=== PATIENT | male | born 1950 | race Caucasian/White ===

== ENCOUNTER 2023-01-17 07:07 | Inpatient (IN) | payer OTHER, SELFPAY ==
--- NOTE | ~2023-01-17 | US_ITS ---
EXAMINATION: US ABDOMEN COMPLETE CLINICAL INFORMATION: Upper abdominal pain. COMPARISON: None available. TECHNIQUE: Real-time imaging of the abdominal viscera. FINDINGS: PANCREAS: Not well visualized due to bowel gas ABDOMINAL AORTA: The proximal, mid, and distal segments are normal in caliber. INFERIOR VENA CAVA: Visualized portions are normal. LIVER: Normal. The liver is normal in size. The liver contour is normal. Parenchymal echogenicity is normal. No focal hepatic lesion. There is no intrahepatic biliary duct dilatation seen. GALLBLADDER: Normal. The gallbladder is physiologically distended without evidence of stones, sludge, polyps, wall thickening or pericholecystic fluid. COMMON BILE DUCT: Normal in caliber measuring 0.4 cm in diameter. RIGHT KIDNEY: Normal. No hydronephrosis. No renal calculi or focal parenchymal lesions. The kidney measures 12 cm in maximum dimension. LEFT KIDNEY: There is a 1 x 0.7 x 0.5 cm cyst in the midpole. No hydronephrosis. No renal calculi. The kidney measures 12 cm in maximum dimension. SPLEEN: Upper normal in size. The spleen measures 12.7 cm in maximum dimension. FREE FLUID: None. US/US abdomen complete IMPRESSION: Limited visualization of the pancreas. Small left renal cyst.
--- NOTE | ~2023-01-17 | XR_ITS ---
EXAMINATION: XR CHEST CLINICAL INFORMATION: Epigastric abdominal pain COMPARISON: None available. TECHNIQUE: 2 views of the chest were obtained. FINDINGS: The lungs are somewhat expanded and clear acute pneumonic process. There is no pleural effusion. There is elevated right hemidiaphragm. The heart size is by underlying enlarged. Pulmonary vascularity is normal. There are median sternotomy sutures and mediastinal salina from previous intervention. No gross bony abnormality seen. XR/XR chest 2V IMPRESSION: 1. Elevated right hemidiaphragm. 2. Mild cardiomegaly. 3. No acute pulmonary process seen.
--- NOTE | ~2023-01-17 | NM_ITS ---
[place] Myocardial perfusion study Indication: Coronary artery disease Technique: Resting perfusion study was performed on 01/18/2023. Patient was administered 30 mCi of sestamibi intravenously at rest. Images were then obtained in supine position. Images were processed with the software and compared side to side in short axis, horizontal long axis and vertical long axis views. Total DLP 53mGy-cm. Findings: Raw acquisition reviewed. Arms by the patient's side. Resting study shows absent tracer uptake in the lateral wall from proximal to mid portions. Reduced tracer uptake in the inferior wall in the basal part. Markedly reduced tracer uptake in the basal inferior septum. Slightly reduced tracer uptake in the distal anterior septum. With CT attenuation correction, the lateral defect still remains similar. Inferior defect seems to improve. Slight improvement in the basal septal defect. No significant change with distal anterior septum. Gating at rest reveals ejection fraction at 44%. Absent basal to mid lateral wall contractility. Absent basal septal contractility. Reduced contractility in the basal inferior wall. The findings are consistent with absent uptake in the basal lateral wall; markedly reduced uptake in the basal septum; mildly reduced uptake in the distal anterior septum. NM/NM rajesh perf SPECT rest or str Impression: 1. Myocardial perfusion imaging study shows absent uptake in the basal lateral wall; markedly reduced uptake in the basal septum; mildly reduced uptake in the distal anterior septum. Due to lack of stress testing, cannot assess further. 2. Gated LVEF is 44% during rest. Patient transfer to [facility] before stress testing completed.
[2023-01-17 07:32] VITALS: BP 180/86; PULSE 69; RESP 18; TEMP 36.6; O2SAT 99; BMI 28.9
--- NOTE | 2023-01-17 07:37 | ECG_ITS ---
Test Reason : chest pain Blood Pressure : / mmHG Vent. Rate : 067 BPM Atrial Rate : 067 BPM P-R Int : 158 ms QRS Dur : 096 ms QT Int : 454 ms P-R-T Axes : 018 -49 162 degrees QTc Int : 479 ms Normal sinus rhythm Left anterior fascicular block Left ventricular hypertrophy with repolarization abnormality ( R in aVL , Grants product ) Abnormal ECG No previous ECGs available Referred By: Josef Noland Electronically Signed By:JASON HOYOS MD
--- NOTE | 2023-01-17 07:39 | ED_ITS ---
HPI - Abdominal Pain General Chief Complaint: Abdominal Pain Stated Complaint: Abdpain Time Seen by Provider: 01/17/23 07:22 Source: patient Mode of arrival: ambulatory Limitations: no limitations History of Present Illness HPI narrative: 72-year-old male with diabetes, hypertension, coronary artery disease status post multivessel bypass presents with upper abdominal pain. The upper abdominal pain has been intermittent for approximately 6-7 months. The pain is moderate to severe. Today it is rated at an 8/10. The pain is described as crampy in nature. It is worse with having acid the food or drinks. Sometimes the pain radiates to the back. There is no diarrhea or constipation. No dark black stool. He does have nausea vomiting particularly over the last 2 days reported as dry heaves without blood or bile. He has had no fevers or chills. He is passing flatus without significant issues. Patient has been to [facility] at least twice where he has had ultrasounds and CT scans. At some po int he has been diagnosed with pancreatitis, diverticulitis. He is due to have an upper endoscopy on January 25 and a colonoscopy in February. Patient is on omeprazole 40 mg daily. Related Data Home Medications Medication Instructions Recorded Confirmed allopurinol 300 mg tablet 150 mg PO DAILY 02/10/22 02/10/22 aspirin 81 mg tablet,delayed 81 mg PO DAILY 02/10/22 02/10/22 release atorvastatin 80 mg tablet 80 mg PO DAILY 02/10/22 02/10/22 cholecalciferol (vitamin D3) 50 50 mcg PO DAILY 02/10/22 02/10/22 mcg (2,000 unit) capsule clopidogrel 75 mg tablet (Plavix) 75 mg PO DAILY 02/10/22 02/10/22 furosemide 40 mg tablet (Lasix) 40 mg PO DAILY 02/10/22 02/10/22 insulin degludec 100 unit/mL (3 10 unit subcut DAILY 02/10/22 02/10/22 mL) subcutaneous pen (Tresiba FlexTouch U-100 insulin) metoprolol tartrate 50 mg tablet 50 mg PO BID 02/10/22 02/10/22 Previous Rx's Medication Instructions Recorded insulin degludec 100 unit/mL (3 30 unit (0.3 mL) subcut DAILY 30 02/10/22 mL) subcutaneous pen (Tresiba days #9 mL FlexTouch U-100 insulin) isosorbide mononitrate 30 mg 30 mg PO DAILY 90 days #90 tabs 02/10/22 tablet,extended release 24 hr losartan 50 mg tablet 50 mg PO BID 90 days #180 tabs 02/10/22 diazepam 5 mg tablet 5 mg PO TID PRN anxiety 30 days 07/05/22 #90 tabs fluticasone propionate 50 1 spray intranasal Q12H 30 days 12/03/22 mcg/actuation nasal #16 grams spray,suspension (Flonase Allergy Relief) Allergies Allergy/AdvReac Type Severity Reaction Status Date / Time Seasonal Allergies AdvReac Intermediate Itchy Eyes Verified 02/10/22 10:09 [facility] Past Medical History Surgical History History of tonsillectomy Social History Social History Housing: House Alcohol intake: never Patient Tobacco Use Status: Former Tobacco user Cigarette Packs Per Day: 1 Years Smoked: 8 Smoked in Last 30 Days: No e-Cigarette/Vaping Use: Never Used Use of substances other than those prescribed or required for medical reasons: No Advance Directives: Yes Advance Directives Information Provided: Yes Advance Directives on File: No service: No Current occupational status: retired Cognitive needs: No Hearing needs: No Vision needs: No Physical Exam ED Vital Signs: Vital Signs - 24 hr 01/17/23 07:32 Temperature 98 F Pulse Rate 69 Respiratory Rate 18 Blood Pressure 180/86 H Pulse Oximetry 99 Oxygen Delivery Method Room Air BMI result Body Mass Index 28.9 GEN: Well developed, no acute distress, alert, oriented HEENT: Normocephalic, atraumatic, normal external ears, nose appears normal, no oropharyngeal edema or exudates Eyes: Normal to appearance Neck: Supple, no lymphadenopathy Respiratory: Talks in complete sentences, no respiratory distress, clear to auscultation bilaterally Cardiovascular: Regular rate and rhythm, no murmurs rubs or gallops Abdomen: Soft, nontender, nondistended, no guarding, no rebound, negative Escalona sign, negative McBurney's point tenderness, no post tile masses appreciated Back: No CVA tenderness Extremities: No clubbing cyanosis or edema Neurologic: No focal neurologic deficits, cranial nerves 2-12 intact, strength is 5/5 bilaterally Skin: No rash Course Course Course Narrative: A 72-year-old male with multiple comorbidities presents with upper abdominal pain. Patient has had workups in the past including imaging studies, laboratory analysis. Diagnoses in the past have included diverticulitis and pancreatitis. Workup today will include ultrasound to evaluate the aorta as well as the biliary system. Will also rule out cardiac issues given the epigastric nature of it pain. Does report some exertional component. He reports a chronic history of elevated troponin, end-stage renal disease with fistula in his left upper extremity will also provide patient with analgesia during the course of workup. Reevaluation(s) Reevaluation #1: patient with significantly elevated toponin, reports having a chronic elevated toponin state. Obtaining records from [facility] to see previous levels. Certainly elevated toroponin wiht epigastric pain is possible for inferior wall mi. No ST elevations or depressions. holding off on aspirin for aortic imaging. Previous CT from [facility] did not demonstrate AAA or dissection. Time: 09:16 Reevaluation #2: Discussed results with the patient. Also discussed previously his cardiac enzyme elevations in that they are significantly elevated from [facility]. I contacted Dr. Fernando, Cardiology, recommending IV heparin drip. Orde red aspirin as well. Time: 11:24 Medical Decision Making Medical Decision Making MDM Narrative: 72-year-old male with multiple comorbidities presents with epigastric abdominal pain. The pain appears to be worse with acidic foods. This OC with nausea vomiting has been nonbilious nonbloody in nature. His examination was benign. Differential diagnosis is broad including pancreatitis, diverticulitis, colitis, IBS, IBD, biliary, renal colic, aortic/vascular. Workup will include CBC, CMP, lipase, troponin, EKG, chest x-ray, ultrasound. In the meantime I will also treat the patient for symptoms. Differential Diagnosis Differential Diagnoses: The differential diagnosis associated with the presentation includes (See above) elevated troponin epigastric pain, Lab Data MDM Lab Attestation statement: I reviewed the patient's lab results. 01/17/23 07:55 01/17/23 07:55 Labs: Lab Results 01/17/23 01/17/23 01/17/23 Range/Units 07:55 07:55 07:55 WBC 7.0 (4.8-10.8) X10*3/uL RBC 5.94 H (4.60-5.80) X10*6/uL Hgb 15.7 (14.0-18.0) g/dl Hct 45.1 (42.0-52.0) % MCV 75.9 L (80.0-98.0) fL MCH 26.4 L (27.0-33.0) pg MCHC 34.8 (31.0-36.0) g/dl RDW 12.7 (11.0-16.0) % Plt Count 255 (160-400) X10*3/uL MPV 9.2 L (9.4-12.4) fL Immature Gran % (Auto) 0.3 (0.0-0.4) % Neut % (Auto) 58.3 (45-73) % Lymph % (Auto) 25.2 (20-40) % [place] % (Auto) 14.9 H (2-11) % Eos % (Auto) 0.9 (0-4) % Baso % (Auto) 0.4 (0-2) % Lymph # (Auto) 1.8 (1.2-4.9) X10*3/uL [place] # (Auto) 1.0 (0.1-1.2) X10*3/uL Eos # (Auto) 0.1 (0.0-0.4) X10*3/uL Baso # (Auto) 0.0 (0.0-0.2) X10*3/uL Abs Immat Gran (auto) 0.02 (0.00-0.03) X10*3/uL Absolute Neuts (auto) 4.1 (2.0-8.3) x10*3/uL Absolute Nucleated RBC 0.000 (0.0-0.012) X10*3/uL Nucleated RBC % (auto) 0.0 (0.0-0.2) /100WBC Sodium 133 L (135-145) mmol/L Potassium 3.0 L (3.3-5.1) mmol/L Chloride 94 L (96-108) mmol/L Carbon Dioxide 29 (22-29) mmol/L Anion Gap 13 (12-20) BUN 32 H (9-16) mg/dL Creatinine 2.58 H (0.5-1.4) mg/dL Estim Creat Clear Calc 27.2 Estimated GFR 25 Random Glucose 127 H (60-115) mg/dL Calcium 8.5 (8.4-10.2) mg/dL Total Bilirubin 0.6 (0.0-1.0) mg/dL AST 19 (5-37) U/L ALT 8 (0-40) U/L Alkaline Phosphatase 177 H (39-117) U/L Troponin I High Sens > 3600.0 H* (<3.5-35.0) ng/L Total Protein 5.5 L (6.5-8.0) g/dL Albumin 2.7 L (3.5-5.0) g/dL Lipase 38 (8-78) U/L Independent Interpretation I performed an independent interpretation of an: EKG (NSR 67, nonspecific T-wave changes, no acute ST elevations or depressions QTC 479 milliseconds left anterior fascicular block, evidence of LVH), Plain X-Ray (Chest: No acute cardiopulmonary disease, no subdiaphragmatic air) and Ultrasound (NAD) Radiology Impression Discussion of test interpretation with radiology: I have reviewed the radiologis t's reading. ( US/US abdomen complete IMPRESSION: Limited visualization of the pancreas. Small left renal cyst. Dictated By:Rebecca Dobsonigned By:<Electronically signed by Rebecca Dobson MD in OV>01/17/23 1100) Independent Historian Clinical information obtained from an independent historian. History obtained from or confirmed by: Other (Daughter) External Record Review External record reviewed: Outpatient record (Primary care visit in 2021) and Outside ED record (Imaging report from 12/07/2022. Impression showed suggestions of acute diverticulitis in the sigmoid colon, no evidence of appendicitis, bladder wall thickening possibly due to under distension, prostate a megaly, splenomegaly in bilateral small fat containing inguinal hernias.) Tests considered The following testing was considered but not selected: CT scan abdomen Prescription Management I considered prescription management with: Pain Medication and Antibiotic Chronic Conditions Patient?s care impacted by: Diabetes and Hypertension Medications Administered Discontinued Medications Generic Name Dose Route Start Last Admin Trade Name Freq PRN Reason Stop Dose Admin Al Hydroxide/Mg Hydroxide 30 ml 01/17/23 07:37 01/17/23 08:17 Magnesium Hydrox/Alum Hydrox 30 Ml Oral.Susp PO 01/17/23 07:38 30 ml ONCE ONE Administration Belladonna Alkaloids/Phenobarbital 10 ml 01/17/23 07:37 01/17/23 08:18 Phenobarb/Hyoscy/Atropine/Scop 10 Ml Elixir PO 01/17/23 07:38 10 ml ONCE ONE Administration Sodium Chloride 1,000 mls @ 999 mls/hr 01/17/23 07:45 01/17/23 07:57 Ns IV 01/17/23 08:45 999 mls/hr .Q1H1M FRANCY Administration Lidocaine HCl 15 ml 01/17/23 07:37 01/17/23 08:17 Lidocaine Hcl Viscous 2 % 15 Ml Solution MUCOUS MEM 01/17/23 07:38 15 ml ONCE ONE Administration Morphine Sulfate 4 mg 01/17/23 07:37 01/17/23 08:13 Morphine Sulfate 4 Mg/Ml Cartridge IVPUSH 01/17/23 07:38 4 mg ONCE ONE Administration Protocol Ondansetron HCl 4 mg 01/17/23 07:37 01/17/23 08:13 Ondansetron Hcl 4 Mg/2 Ml Vial IVPUSH 01/17/23 07:38 4 mg ONCE ONE Administration Pantoprazole Sodium 80 mg 01/17/23 07:37 01/17/23 08:22 Pantoprazole Sodium 40 Mg/10 Ml Vial IVPUSH 01/17/23 07:38 80 mg ONCE ONE Administration Discharge Plan Discharge Clinical Impression: Abdominal pain, acute, epigastric, Abnormal weight loss, CKD (chronic kidney disease), Hypokalemia, Elevated troponin Patient Disposition: Admitted As Inpatient
[2023-01-17] MEDS: 0.9 % Sodium Chloride 1,000 ML 999 ML IV (07:57)
[2023-01-17 08:03] LABS: MANUAL DIFF FLAG NO
[2023-01-17 08:04] LABS: Basophils Percent Auto 0.4 % (0-2); Eosinophils Absolute Auto 0.1 X10*3/uL (0.0-0.4); Eosinophils Percent Auto 0.9 % (0-4); Hematocrit 45.1 % (42.0-52.0); Hemoglobin 15.7 g/dl (14.0-18.0); Imm Gran Abs Auto 0.02 X10*3/uL (0.00-0.03); Imm Gran Pct Auto 0.3 % (0.0-0.4); Lymphocytes Absolute Auto 1.8 X10*3/uL (1.2-4.9); Lymphocytes Percent Auto 25.2 % (20-40); Mean Corpuscular HGB Conc 34.8 g/dl (31.0-36.0); Mean Corpuscular Hemoglobin 26.4 pg (27.0-33.0); Mean Corpuscular Volume 75.9 fL (80.0-98.0); Mean Platelet Volume 9.2 fL (9.4-12.4); Monocytes Percent Auto 14.9 % (2-11); Neutrophils Absolute Auto 4.1 x10*3/uL (2.0-8.3); Neutrophils Percent Auto 58.3 % (45-73); Platelet Count 255 X10*3/uL (160-400); Red Blood Count 5.94 X10*6/uL (4.60-5.80); Red Cell Distribution Width 12.7 % (11.0-16.0)
[2023-01-17] MEDS: ondansetron HCL 4 MG/2 ML VIAL IVPUSH (08:13)
[2023-01-17] MEDS: Morphine Sulfate 4 MG/ML CARTRIDGE IVPUSH (08:13)
[2023-01-17] MEDS: Lidocaine HCl Viscous 2 % 15 ML SOLUTION MUCOUS MEM (08:17)
[2023-01-17] MEDS: Magnesium Hydrox/Alum Hydrox 30 ML ORAL.SUSP PO (08:17)
[2023-01-17] MEDS: PHENobarb/Hyoscy/Atropine/Scop 10 ML ELIXIR PO (08:18)
[2023-01-17] MEDS: Pantoprazole Sodium 40 MG/10 ML VIAL 80 MG IVPUSH (08:22)
--- NOTE | 2023-01-17 08:27 | PC.NURSE ---
pt alert/oriented x4. reporting increased central abd pain since Tuesday with dry heaving. abdomen soft and painful with deep palpation. Pt has had abd pain since June. IV started, labs drawn, fluids running and meds given per NOV. Pt has AV fistula on left wrist, pt not on dialysis at this time. thrill palpated.
[2023-01-17 09:09] LABS: Alanine Aminotransferase 8 U/L (0-40); Albumin Level 2.7 g/dL (3.5-5.0); Alkaline Phosphatase 177 U/L (39-117); Anion Gap 13 (12-20); Aspartate Amino Transferase 19 U/L (5-37); Bilirubin Total 0.6 mg/dL (0.0-1.0); Blood Urea Nitrogen 32 mg/dL (9-16); Calcium 8.5 mg/dL (8.4-10.2); Carbon Dioxide 29 mmol/L (22-29); Chloride 94 mmol/L (96-108); Creatinine Clr Calc Pharmacy 27.2; Estimated Glomerular Filt Rate 25; Lipase 38 U/L (8-78); Sodium 133 mmol/L (135-145); Total Protein 5.5 g/dL (6.5-8.0)
[2023-01-17 09:11] LABS: Troponin-I High Sensitivity > 3600.0 ng/L (<3.5-35.0)
[2023-01-17 10:00] VITALS: PULSE 70; RESP 16; O2SAT 96
--- NOTE | 2023-01-17 10:10 | PM.GICN ---
History of Present Illness Data of Consult Service Date: 01/17/23 Primary Care Provider: Miguelangel Beckham MD HPI Reason for consult: abdominal pain, and weight loss 72-year-old male with a hx of?CAD s/p quintuple coronary artery bypass grafting in 2018,? HTN, HLD, insulin-dependent diabetes type 2, and end-stage renal disease not currently on hemodialysis who I am seeing for assessment for abdominal pain and weight loss Patient has been having recurrent bouts of severe epigastric pain 6/10 in severity radiating into the back like an knawing pain worse with food, and associated with nausea and occ non bloody emesis last few days. He also noted 16# weight loss over about 1 months. He has been unable to eat except for clear liquids. Patient denies constipation or diarrhea, but notes that his stool has been softer than normal these past 6 months. No rectal bleding or melena noted. not taking nsaids except for aspirin. He has been to [facility] ED 3 times for the symptoms and had three CT scans of abdomen and pelvis.? One time patient was diagnosed with pancreatitis because elevated lipase, another with diverticulitis.? Ct scans have shown moderate atherosclerosis of aorta. Labs: sodium of 133, potassium 3.0, BUN 32, creatinine 2.58, alk-phos of 177, troponin > 3600, albumin of 2.7. Imaging: CXR: mild cardiomegaly and elevated right hemidiaphragm, but no acute pulmonary process seen. US: small left renal cyst and limited visualization of the pancreas due to bowel gas.Otherwise normal ECG: normal sinus rhythm with suggestion of LVH with repolarization abnormality, but no ST elevations or depressions PAtient has been started on heparin gtt and pantoprazole. Review of Systems Review of Systems: Constitutional : + Weight loss, No Fever, No Chills ENT/Mouth : No sore throat, No Rhinorrhea Eyes: No Swelling, No Redness Cardiovascular : No Chest Pain, No SOB, No Edema Respiratory : No Cough, No Sputum, No Wheezing Gastrointestinal : see HPI Genitourinary : NO Dysuria, No Urinary Frequency, No Hematuria, No Urgency Musculoskeletal : No joint pain, No Myalgias, No Joint Swelling Skin : No Skin Lesions, No rash Neuro : No Weakness, No Numbness, No Dizziness, No Headache Psych : No Anxiety/Panic, No Depression Heme/Lymph: No Bruising, No Lymphadenopathy Endocrine : No Polyuria, No Polydipsia All other systems reviewed and are negative. [facility] Surgical History Surgical History History of tonsillectomy Social History Social History Housing: House Alcohol intake: never Patient Tobacco Use Status: Former Tobacco user Cigarette Packs Per Day: 1 Years Smoked: 8 Smoked in Last 30 Days: No e-Cigarette/Vaping Use: Never Used Use of substances other than those prescribed or required for medical reasons: No Advance Directives: Yes Advance Directives Information Provided: Yes Advance Directives on File: No service: No Current occupational status: retired Cognitive needs: No Hearing needs: No Vision needs: No Meds Allergies Allergy/AdvReac Type Severity Reaction Status Date / Time Seasonal Allergies AdvReac Intermediate Itchy Eyes Verified 02/10/22 10:09 Home Medications Medication Instructions Recorded Confirmed Last Taken Type allopurinol 300 mg tablet 150 mg PO DAILY 02/10/22 01/17/23 Unknown History aspirin 81 mg tablet,delayed 81 mg PO DAILY 02/10/22 01/17/23 Unknown History release atorvastatin 80 mg tablet 80 mg PO DAILY 02/10/22 01/17/23 Unknown History cholecalciferol (vitamin D3) 50 50 mcg PO DAILY 02/10/22 01/17/23 Unknown History mcg (2,000 unit) capsule insulin degludec 100 unit/mL (3 17 unit subcut BID 02/10/22 01/17/23 Unknown History mL) subcutaneous pen (Tresiba FlexTouch U-100 insulin) metoprolol tartrate 50 mg tablet 25 mg PO TID 02/10/22 01/17/23 Unknown History furosemide 40 mg tablet 40 mg PO DAILY 01/17/23 01/17/23 Unknown History latanoprost 0.005 % eye drops 1 drp ophthalmic (eye) BEDTIME 01/17/23 01/17/23 Unknown History losartan 100 mg tablet 100 mg PO DAILY 01/17/23 01/17/23 Unknown History sertraline 25 mg tablet 25 mg PO DAILY 01/17/23 01/17/23 Unknown History timolol maleate 0.5 % eye drops 1 drp ophthalmic (eye) QAM 01/17/23 01/17/23 Unknown History Physical Exam Vital Signs: Vital Signs: Last Vital Signs Temp 98 F 01/17/23 07:32 Pulse 69 01/17/23 07:32 Resp 18 01/17/23 07:32 BP 180/86 H 01/17/23 07:32 Pulse Ox 99 01/17/23 07:32 O2 Del Method Room Air 01/17/23 07:32 BMI result Body Mass Index 28.1 EXAM: GENERAL: The patient is frail, pale appearing VITAL SIGNS:see workflow HEENT: Nonicteric sclerae, PERRLA, EOMI. Oropharynx clear. Moist mucous membranes. Conjunctivae appear well perfused. No thyroid mass. CHEST: Chest wall is nontender. HEART: Regular rate and rhythm without murmurs. LUNGS: Clear to auscultation bilaterally. ABDOMEN: Soft, positive bowel sounds, tender epigastrium, no organomegaly.no flank tenderness SKIN: No rash, no excessive bruising, petechiae, or purpura. erythema ab igne on the abdo wall NEUROLOGIC: Cranial nerves II-XII intact without motor/sensory deficit. Pscyh: nml affect Results Labs 01/17/23 07:55 01/17/23 07:55 Labs: Short CBC 01/17/23 Range/Units 07:55 WBC 7.0 (4.8-10.8) X10*3/uL Hgb 15.7 (14.0-18.0) g/dl Hct 45.1 (42.0-52.0) % Plt Count 255 (160-400) X10*3/uL BMP 01/17/23 07:55 Sodium 133 L Potassium 3.0 L Chloride 94 L Carbon Dioxide 29 BUN 32 H Creatinine 2.58 H Calcium 8.5 Liver Function 01/17/23 Range/Units 07:55 Total Bilirubin 0.6 (0.0-1.0) mg/dL AST 19 (5-37) U/L ALT 8 (0-40) U/L Alkaline Phosphatase 177 H (39-117) U/L Albumin 2.7 L (3.5-5.0) g/dL Assessment and Plan (1) CKD (chronic kidney disease): Status: Acute (2) Spinal stenosis: Status: Acute (3) Chronic renal failure: Status: Acute (4) Diabetes: Status: Acute (5) Coronary artery disease: Status: Acute (6) Hypertension: Status: Acute (7) Hyperlipidemia: Status: Acute (8) Gout: Status: Acute Plan 1/ Abdominal pain with weight loss, ongoing symptoms, has prandial pain, main concerns: PUD, mesenteric ischemia, pancreatic ca, small bowel crohns PLAN: 1/ work up for NSTEMI as doing if neg then Mr pancreas and doppler of meseneteric vessels 2/ if neg then EGD and colonoscopy, can cont with PPI for the meantime Time Spent With Patient Time: Total time managing care of this patient today ____ minutes. Procedures Date of Service Date of Service: 01/17/23
[2023-01-17 11:19] LABS: Glucose Random 127 mg/dL (60-115)
[2023-01-17 12:00] VITALS: BP 177/88; PULSE 65; RESP 22; TEMP 36.9; O2SAT 96
--- NOTE | 2023-01-17 12:06 | CA_ITS ---
Transthoracic Echocardiogram Patient (Last, First, Middle): Mark Conte, Gender: Male Date of : 1950 Age: 72 Procedure Date: 01/17/2023 Procedure Type: Transthoracic Echocardiogram Location: ER Height: 170.18 cm Weight: 83.46 kg BSA: 1.95 m2 Heart Rate: bpm BP: 177 / 88 mmHg Professional Volleyball Player: GEORGE Referring MD: Carlos Fernando MD Criminalist Technician: Carlos Fernando MD Symptoms: Elevated troponins Study Quality: Adequate with contrast ECG Rhythm: Sinus Conclusions: - 1. Normal LV systolic function with moderate left ventricular hypertrophy with grade 2 diastolic dysfunction 2. Moderate left atrial enlargement 3. At least mild mitral regurgitation 4. No gross pericardial effusion Findings Procedure Information Contrast agent, definity, is being given per protocol without apparent complications. Left Ventricle Normal left ventricular size and systolic function. There is moderately increased left ventricular wall thickness. The visually estimated ejection fraction is between 55-60%. Spectral Doppler is indicative of a pseudonormal filling pattern. E/E prime ratio is >15, consistent with elevated filling pressures. Evidence suggests grade II (moderate) diastolic dysfunction. The images are off axis and basal anterolateral hypokinesis cannot be entirely ruled out Right Ventricle Normal right ventricular cavity size and systolic function. Atria The left atrium is moderately dilated. There is no evidence of interatrial shunt. The right atrium is likely dilated. Aortic Valve There is mild calcification of the aortic valve. There is mild thickening of the aortic valve. There is no aortic valve stenosis. There is no aortic valve regurgitation. Mitral Valve There is mild anterior and posterior mitral leaflet thickening. There is moderate mitral annular calcification. There is mild mitral valve regurgitation. There is no mitral valve stenosis. Pulmonic Valve The pulmonic valve was not well visualized. Tricuspid Valve Likely normal tricuspid valve structure and function. Tricuspid regurgitation envelope is inadequate for calculation of right ventricular systolic pressure. There is no evidence of pulmonary hypertension. Great Vessels All visible segments of the aorta are normal in size. The pulmonary artery was not well visualized. Venous The inferior vena cava is normal in size and collapses greater than 50% with inspiration. Pericardium/Pleural There is no evidence of pericardial effusion. Prior Study Comparison No prior study available for comparison. Measurements 2D Linear Measurements IVSd: 1.45 0.6-0.9/0.6-1.0 cm LVIDd: 5.01 3.9-5.3/4.2-5.9 cm LVIDd Index: 2.57 2.4-3.2/2.2-3.1 cm/m2 LVIDs: 3.33 2.0-3.6 cm LVPWd: 1.58 0.7-1.1 cm LA Diam: 4.80 2.7-3.8/3.0-4.0 cm LAIDs Index: 2.46 1.5-2.3 cm/m2 LV Mass: 409.73 67-162/88-224 g LV Mass Index: 210.12 43-95/49-115 g/m2 LVOT Diam: 1.80 3.0+(-)1.3 cm 2D Systolic Function EF 4C: 52.80 >55% EF 2C: 63.20 >55% EF BiP: 58.70 >55% Mitral Valve MV Pk E: 1.06 MV PK A: 0.83 MV Decel Time: 170.00 E/A: 1.30 E'Lateral: 5.35 E'Medial: 3.65 E/E' Med: 29.00 E/E' Lat: 19.80 PHT: 50.00 MVA PHT: 4.40 Decel Searcy: 6.24 Aortic Valve AoV Pk Hola: 1.24 AoV Mn Hola: 0.88 AoV VTI: 0.26 AoV Pk Grad: 6.00 Aov Mn Grad: 3.00 RAMESH Cont.VTI: 2.09 LVOT LVOT Pk Hola: 1.05 LVOT Mn Hola: 0.71 LVOT VTI: 0.21 LVOT Pk Grad: 4.00 LVOT Mn Grad: 2.00 LVOT Diam: 1.80 LVOT Area: 2.54 Diastolic Function MV Pk E: 1.06 MV Pk A: 0.83 E/A: 1.30 E'Medial: 3.65 E/E' Med: 29.00 E' Laterial: 5.35 E/E' Lat: 19.80 Right Ventricle TAPSE (mm): 18.00 TVS' Hola: 7.22 Tricuspid Valve RA Press: 3.00 Great Vessels Aorta Sinus of Valsalva: 4.10 2.0-3.5 cm Ao Asc: 3.60 2.1-3.4 cm Pulmonary Valve PV Pk Hola: 1.05 Peak PV Grad: 4.00 Updated in Other Vendor System with Status of Final Carlso Fernando MD electronically signed on 01/17/2023 4:09:00 PM with status of Final
--- NOTE | 2023-01-17 12:08 | PM.CNCAR ---
History of Present Illness History of Present Illness Date of Service: 01/17/23 Requesting physician: Josef Noland Consult reason: troponin elevation Chief complaint: Abdpain Narrative: I was consulted to see Mark in cardiology consultation today for elevated troponins. His 9-year-old male with prior history of coronary artery disease status post quintuple coronary artery bypass grafting in 2018 for exertional inter scapular discomfort. Since then he has been doing well. He is being followed by in [place] and usually sees a nurse practitioner. Patient has been doing well overall. All the last many months he is being and recurrent abdominal pain without any obvious diagnosis. Patient says he has been diagnosed with pancreatitis at 1 time and with diverticulitis at other time. He started having similar abdominal epigastric discomfort over the last few days, last night got severely worse. This was associated with vomiting. His daughter works here as a nurse then brought him to the emergency room. During the workup EKG shows normal sinus rhythm with suggestion of LVH with repolarization abnormality. However his troponins are significantly elevated at about 3600. Patient says this pain does not remind him of his anginal discomfort. He has been taking all his medications. He denies any other cardiac symptoms. The symptoms of abdominal pain are not exertional in nature. Denies any shortness of breath, orthopnea, PND. He does have chronic kidney disease and sees Nephrology regularly. Review of Systems Constitutional: Constitutional: Reports no additional constitutional complaints Eyes: Eyes: Reports no additional eye complaints Cardiovascular: Cardiovascular: Reports no additional cardiovascular complaints Gastrointestinal: Gastrointestinal: Reports abdominal pain, Reports nausea and Reports vomiting Genitourinary: Genitourinary: Reports no additional male genitourinary complaints Musculoskeletal: Musculoskeletal: Reports no additional musculoskeletal complaints Integumentary/Breasts: Skin/Breast: Reports system reviewed and no additional complaints, except as docu Neurologic: Reports system reviewed and no additional complaints, except as documented Psychiatric: Psychiatric: Reports no additional psychiatric complaints Endocrine: Endocrine: Reports no additional endocrine complaints Hematologic/Lymphatic: Hematologic/Lymphatic: Reports no additional hematologic/lymphatic complaints [facility] Surgical History Surgical History History of tonsillectomy Social History Social History Housing: House Alcohol intake: never Patient Tobacco Use Status: Former Tobacco user Cigarette Packs Per Day: 1 Years Smoked: 8 Smoked in Last 30 Days: No e-Cigarette/Vaping Use: Never Used Use of substances other than those prescribed or required for medical reasons: No Advance Directives: Yes Advance Directives Information Provided: Yes Advance Directives on File: No service: No Current occupational status: retired Cognitive needs: No Hearing needs: No Vision needs: No Meds Allergies Allergy/AdvReac Type Severity Reaction Status Date / Time Seasonal Allergies AdvReac Intermediate Itchy Eyes Verified 02/10/22 10:09 Active Medications: Current Medications Heparin Sodium (Porcine) (Heparin Sodium,Porcine 5,000 Unit/Ml Vial) 3,400 unit 40 unit/kg (3400 unit) IVPUSH PROTOCOL BOLUS PRN; Protocol PRN Reason: 40 unit/kg - Heparin Protocol Heparin Sodium (Porcine) (Heparin Sodium,Porcine 5,000 Unit/Ml Vial) 6,700 unit 80 unit/kg (6700 unit) IVPUSH PROTOCOL BOLUS PRN; Protocol PRN Reason: 80 unit/kg - Heparin Protocol Heparin Sodium/Sodium Chloride (Heparin Sodium,Porcine/1/2ns) 25,000 unit in 250 mls @ 0 mls/hr IVCONT .Q0M FRANCY; Protocol Home Medications Medication Instructions Recorded Confirmed Last Taken Type allopurinol 300 mg tablet 150 mg PO DAILY 02/10/22 02/10/22 Unknown History aspirin 81 mg tablet,delayed 81 mg PO DAILY 02/10/22 02/10/22 Unknown History release atorvastatin 80 mg tablet 80 mg PO DAILY 02/10/22 02/10/22 Unknown History cholecalciferol (vitamin D3) 50 50 mcg PO DAILY 02/10/22 02/10/22 Unknown History mcg (2,000 unit) capsule clopidogrel 75 mg tablet (Plavix) 75 mg PO DAILY 02/10/22 02/10/22 Unknown History furosemide 40 mg tablet (Lasix) 40 mg PO DAILY 02/10/22 02/10/22 Unknown History insulin degludec 100 unit/mL (3 10 unit subcut DAILY 02/10/22 02/10/22 Unknown History mL) subcutaneous pen (Tresiba FlexTouch U-100 insulin) metoprolol tartrate 50 mg tablet 50 mg PO BID 02/10/22 02/10/22 Unknown History Physical Exam Vital Signs: Vital Signs: Last Vital Signs Temp 98 F 01/17/23 07:32 Pulse 69 01/17/23 07:32 Resp 18 01/17/23 07:32 BP 180/86 H 01/17/23 07:32 Pulse Ox 99 01/17/23 07:32 O2 Del Method Room Air 01/17/23 07:32 BMI result Body Mass Index 28.9 Const: General: cooperative, comfortable, no acute distress, alert and awake Nutritional Appearance: overweight Orientation/consciousness: patient oriented x3 HEENT: Head: Yes normocephalic and Yes atraumatic Neck: Neck: Yes trachea midline, Yes supple and Yes no JVD Resp: Effort & Inspection: normal respiratory effort Auscultation: clear to auscultation bilaterally Cardio: Jugular venous distension: no JVD Palpation: normal PMI Rate: regular rate Rhythm: regular rhythm Heart sounds: S1 normal heart sound present, S2 normal heart sound present, no click, no gallops, no murmurs and no rubs GI: Auscultation: normal bowel sounds Skin: General skin exam: no rashes or lesions noted Neuro: General: patient oriented x3 and no focal motor deficits Extrem: General: Yes no clubbing, cyanosis or edema Objective Labs and Meds 01/17/23 07:55 01/17/23 07:55 Lab results: Laboratory Results - last 24 hr 01/17/23 01/17/23 01/17/23 07:55 07:55 07:55 WBC 7.0 RBC 5.94 H Hgb 15.7 Hct 45.1 MCV 75.9 L MCH 26.4 L MCHC 34.8 RDW 12.7 Plt Count 255 MPV 9.2 L Immature Gran % (Auto) 0.3 Neut % (Auto) 58.3 Lymph % (Auto) 25.2 Dawes % (Auto) 14.9 H Eos % (Auto) 0.9 Baso % (Auto) 0.4 Lymph # (Auto) 1.8 Dawes # (Auto) 1.0 Eos # (Auto) 0.1 Baso # (Auto) 0.0 Abs Immat Gran (auto) 0.02 Absolute Neuts (auto) 4.1 Absolute Nucleated RBC 0.000 Nucleated RBC % (auto) 0.0 Sodium 133 L Potassium 3.0 L Chloride 94 L Carbon Dioxide 29 Anion Gap 13 BUN 32 H Creatinine 2.58 H Estim Creat Clear Calc 27.2 Estimated GFR 25 Random Glucose 127 H Calcium 8.5 Total Bilirubin 0.6 AST 19 ALT 8 Alkaline Phosphatase 177 H Troponin I High Sens > 3600.0 H* Total Protein 5.5 L Albumin 2.7 L Lipase 38 EKG shows normal sinus rhythm with suggestion of LVH with repolarization abnormality Imaging Radiologist's impression: Impressions Chest X-Ray 01/17/23 08:45 IMPRESSION: 1. Elevated right hemidiaphragm. 2. Mild cardiomegaly. 3. No acute pulmonary process seen. Abdomen Ultrasound 01/17/23 10:00 IMPRESSION: Limited visualization of the pancreas. Small left renal cyst. Assessment and Plan (1) NSTEMI (non-ST elevated myocardial infarction): Status: Acute Patient presents with GI symptoms and noted to have elevated troponins consistent with NSTEMI. Not clear whether there is clear rise and fall although he does have extensive prior history of coronary artery disease and coronary artery bypass grafting. This symptoms are not similar to his anginal symptoms. Therefore there is description see between symptoms and elevation of cardiac markers. Continue to trend cardiac markers. For now will treat him with IV heparin, aspirin, statins. Continue with his metoprolol. Will switch him to nitropaste 1 in q.6 hours for better blood pressure control and also add amlodipine 2.5 mg to his regimen. I will further risk stratify with echocardiogram. 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 Will compare echocardiogram, if there is any significant reduction LV ejection fraction and/or new regional wall motion abnormality will transfer him for invasive approach with cardiac catheterization. If the echocardiogram shows normal LV systolic function without any significant regional wall motion abnormality probably will pursue inpatient myocardial perfusion imaging. Management was discussed with him in details. He understands and agrees. Continue to pursue workup for his abdominal discomfort which appears to be noncardiac in nature. Will continue to follow with you Time Spent With Patient Time: Total time managing care of this patient today ____ minutes. Procedures Date of Service Date of Service: 01/17/23
[2023-01-17 12:26] LABS: Appearance Urine Turbid; Color Urine Yellow; Glucose Urine UA 250 mg/dL (Negative); Leukocyte Esterase Urine Negative (Negative); Nitrite Urine Negative (Negative); PH 5.5 (5.0-9.0); Specific Gravity - Urine 1.015 (1.005-1.025); UMIC TRIGGER UACC YES; Urine Blood Moderate (2+) (Negative); Urine Ketones Negative (Negative); Urine Protein 300 (3+) mg/dL (Neg-Trace)
--- NOTE | 2023-01-17 12:26 | PC.NURSE ---
pt reporting no pain. tech attempted repeat labs but pt is difficult stick and AV fistula on left prevents draws on that side.
[2023-01-17 12:34] LABS: Bacteria Urine None Seen (None Seen); Granular Casts Urine Present; Other Crystals Urine Present; Squamous Epithelial Cell Urine 0-2 /HPF (0-2); WBC Urine 0-5 /HPF (0-5)
--- NOTE | 2023-01-17 12:45 | PHA.MEDREC ---
Pharmacy Consult ? Medication Reconciliation Pharmacy has completed the medication reconciliation.
[2023-01-17] MEDS: Aspirin 81 MG TAB.CHEW 324 MG PO (13:04)
[2023-01-17] MEDS: Potassium Chloride Packet 20 MEQ PACKET 40 MEQ PO (13:04)
[2023-01-17] MEDS: Metoprolol Tartrate 5 MG/5 ML VIAL IVPUSH (13:06)
--- NOTE | 2023-01-17 14:25 | PC.NURSE ---
pt is a very difficult stick. tech has been unable to get blood draw for PTT before Heparin. will cont to attempt blood draw
--- NOTE | 2023-01-17 14:26 | PM.IMHP ---
History of Present Illness Date of Service: 01/17/23 <POPEYE Hurt - Last Filed: 01/17/23 16:06> Attending physician on admission: Stef Longo <POPEYE Hurt - Last Filed: 01/17/23 16:06> Chief Complaint: Abdominal pain <POPEYE Hurt - Last Filed: 01/17/23 16:06> Pt is a 72-year-old male with a PMH significant for?CAD s/p quintuple coronary artery bypass grafting in 2018, HTN, HLD, insulin-dependent diabetes type 2, and end-stage renal disease not currently on hemodialysis who presents to the ED with?worsening epigastric pain, nausea, and dry heaving for the past 2 days. Patient states that he has been having intermittent epigastric pain for the past 6 months. Describes pain as sometimes crampy in nature and other times a 9, burning pain. Mostly associated with eating, and particularly eating acidic foods. Patient has presenting to [facility] [place] ED 3 times for the symptoms and had three CT scans of abdomen and pelvis. One time patient was diagnosed pancreatitis because elevated lipase, another with diverticulitis. However patient has not received a resolution of his symptoms and has had decreased intake of both solids and liquids, and lost 13 lb in the last month alone because of anorexia Patient presents to the emergency room today because of epigastric discomfort that has been accompanied by nausea and dry heaves and not associated with eating, all of which are new symptoms. Patient denies constipation or diarrhea, but notes that his stool has been softer than normal these past 6 months. In the ED labs showed markedly elevated troponin of >3600 with no evidence of ST elevations or depressions on EKG. Patient denies chest pain/pressure, palpitations. No shortness of breath. Cardiology was consulted and had patient placed heparin drip and admitted for further workup and evaluation. Of note, patient has an upper endoscopy scheduled outpatient for January 25 and a colonoscopy scheduled in February. In the ED patient was afebrile but tachypneic at up to 22, and slightly hypertensive up to 180/86. Labs were significant for sodium of 133, potassium 3.0, BUN 32, creatinine 2.58, alk-phos of 177, troponin > 3600, albumin of 2.7. CXR shows mild cardiomegaly and elevated right hemidiaphragm, but no acute pulmonary process seen. Abdominal ultrasound showed small left renal cyst and limited visualization of the pancreas due to bowel gas. EKG demonstrated showed normal sinus rhythm with suggestion of LVH with repolarization abnormality, but no ST elevations or depressions. Pt was treated with sodium chloride, ondansetron, morphine, pantoprazole, aspirin, and started on heparin drip. Pt will be admitted to the hospital on telemetry for further workup and management of acute NSTEMI. <POPEYE Hurt - Last Filed: 01/17/23 16:06> Review of Systems Review of Systems: Intermittent epigastric pain for past 6 months, worse the past 2 days Nausea, dry heaves x2 days Anorexia Denies chest pain/pressure, palpitations No shortness of breath Denies fever, chills, diarrhea, constipation <POPEYE Hutr - Last Filed: 01/17/23 16:06> Yes all other systems are reviewed and are negative <POPEYE Hurt Last Filed: 01/17/23 16:06> [facility] Surgical History: Surgical History History of tonsillectomy <POPEYE Hurt Last Filed: 01/17/23 16:06> Social History: Social History Housing: House Alcohol intake: never Patient Tobacco Use Status: Former Tobacco user Cigarette Packs Per Day: 1 Years Smoked: 8 e-Cigarette/Vaping Use: Never Used service: No Current occupational status: retired Cognitive needs: No Hearing needs: No Vision needs: No <POPEYE Hurt Last Filed: 01/17/23 16:06> Meds Allergies/Adverse reactions: Allergies Allergy/AdvReac Type Severity Reaction Status Date / Time Seasonal Allergies AdvReac Intermediate Itchy Eyes Verified 02/10/22 10:09 <POPEYE Hurt Last Filed: 01/17/23 16:06> Active Medications: Current Medications Heparin Sodium (Porcine) (Heparin Sodium,Porcine 5,000 Unit/Ml Vial) 3,400 unit 40 unit/kg (3400 unit) IVPUSH PROTOCOL BOLUS PRN; Protocol PRN Reason: 40 unit/kg - Heparin Protocol Heparin Sodium (Porcine) (Heparin Sodium,Porcine 5,000 Unit/Ml Vial) 6,700 unit 80 unit/kg (6700 unit) IVPUSH PROTOCOL BOLUS PRN; Protocol PRN Reason: 80 unit/kg - Heparin Protocol Heparin Sodium/Sodium Chloride (Heparin Sodium,Porcine/1/2ns) 25,000 unit in 250 mls @ 0 mls/hr IVCONT .Q0M FRANCY; Protocol <POPEYE Hurt - Last Filed: 01/17/23 16:06> Home medications: Home Medications Medication Instructions Recorded Confirmed Last Taken Type allopurinol 300 mg tablet 150 mg PO DAILY 02/10/22 01/17/23 Unknown History aspirin 81 mg tablet,delayed 81 mg PO DAILY 02/10/22 01/17/23 Unknown History release atorvastatin 80 mg tablet 80 mg PO DAILY 02/10/22 01/17/23 Unknown History cholecalciferol (vitamin D3) 50 50 mcg PO DAILY 02/10/22 01/17/23 Unknown History mcg (2,000 unit) capsule insulin degludec 100 unit/mL (3 17 unit subcut BID 02/10/22 01/17/23 Unknown History mL) subcutaneous pen (Tresiba FlexTouch U-100 insulin) metoprolol tartrate 50 mg tablet 25 mg PO TID 02/10/22 01/17/23 Unknown History furosemide 40 mg tablet 40 mg PO DAILY 01/17/23 01/17/23 Unknown History latanoprost 0.005 % eye drops 1 drp ophthalmic (eye) BEDTIME 01/17/23 01/17/23 Unknown History losartan 100 mg tablet 100 mg PO DAILY 01/17/23 01/17/23 Unknown History sertraline 25 mg tablet 25 mg PO DAILY 01/17/23 01/17/23 Unknown History timolol maleate 0.5 % eye drops 1 drp ophthalmic (eye) QAM 01/17/23 01/17/23 Unknown History <POPEYE Hurt - Last Filed: 01/17/23 16:06> Physical Exam Vital Signs and Narrative: Vital Signs: Last Vital Signs Temp 98.4 F 01/17/23 12:00 Pulse 65 01/17/23 12:00 Resp 22 H 01/17/23 12:00 BP 177/88 H 01/17/23 12:00 Pulse Ox 96 01/17/23 12:00 O2 Del Method Room Air 01/17/23 12:00 BMI result Body Mass Index 28.9 <POPEYE Hurt - Last Filed: 01/17/23 16:06> Constitutional: Alert, in no acute distress. Mental Status: Oriented to person, place and time. Eyes: Pupils are equal, round, and reactive to light. Ear, Nose, and Throat: Oropharynx clear, mucous membranes moist. Ears and nose without deformities. Trachea midline. Respiratory: Clear to auscultation bilaterally. No wheezing, rales, or rhonchi. Cardiovascular: S1, S2 regular. No murmurs, rubs, or gallops. Gastrointestinal: Abdomen soft, non-tender, non-distended. Normal bowel sounds. Neurologic: Cranial nerves II-XII are grossly intact bilaterally. No focal neurological deficits. Moves all extremities spontaneously. Skin: No rashes or lesions noted. Musculoskeletal: No anterior chest wall tenderness. Extremities: No edema. Psychiatric: Normal mood and affect. <POPEYE Hurt - Last Filed: 01/17/23 16:06> Results Labs CBC and Chem 7: 01/17/23 07:55 01/17/23 07:55 <POPEYE Hurt - Last Filed: 01/17/23 16:06> Labs: Laboratory Results - last 24 hr 01/17/23 01/17/23 01/17/23 07:55 07:55 07:55 MCV 75.9 L MCH 26.4 L MCHC 34.8 RDW 12.7 Plt Count 255 MPV 9.2 L Immature Gran % (Auto) 0.3 Neut % (Auto) 58.3 Lymph % (Auto) 25.2 Irion % (Auto) 14.9 H Eos % (Auto) 0.9 Baso % (Auto) 0.4 Lymph # (Auto) 1.8 Irion # (Auto) 1.0 Eos # (Auto) 0.1 Baso # (Auto) 0.0 Abs Immat Gran (auto) 0.02 Absolute Neuts (auto) 4.1 Absolute Nucleated RBC 0.000 Nucleated RBC % (auto) 0.0 Anion Gap 13 Estim Creat Clear Calc 27.2 Estimated GFR 25 Random Glucose 127 H Calcium 8.5 Total Bilirubin 0.6 AST 19 ALT 8 Alkaline Phosphatase 177 H Troponin I High Sens > 3600.0 H* Total Protein 5.5 L Albumin 2.7 L Lipase 38 Urine Color Urine Appearance Urine pH Ur Specific [place] Urine Protein Urine Glucose (UA) Urine Ketones Urine Blood Urine Nitrite Ur Leukocyte Esterase Urine RBC Urine WBC Ur Squamous Epith Cells Other Crystals Urine Bacteria Hyaline Casts Granular Casts 01/17/23 12:15 MCV MCH MCHC RDW Plt Count MPV Immature Gran % (Auto) Neut % (Auto) Lymph % (Auto) Irion % (Auto) Eos % (Auto) Baso % (Auto) Lymph # (Auto) Irion # (Auto) Eos # (Auto) Baso # (Auto) Abs Immat Gran (auto) Absolute Neuts (auto) Absolute Nucleated RBC Nucleated RBC % (auto) Anion Gap Estim Creat Clear Calc Estimated GFR Random Glucose Calcium Total Bilirubin AST ALT Alkaline Phosphatase Troponin I High Sens Total Protein Albumin Lipase Urine Color Yellow Urine Appearance Turbid Urine pH 5.5 Ur Specific [place] 1.015 Urine Protein 300 (3+) H Urine Glucose (UA) 250 H Urine Ketones Negative Urine Blood Moderate (2+) H Urine Nitrite Negative Ur Leukocyte Esterase Negative Urine RBC 11-20 H Urine WBC 0-5 Ur Squamous Epith Cells 0-2 Other Crystals Present Urine Bacteria None Seen Hyaline Casts 6-10 Granular Casts Present <POPEYE Hurt - Last Filed: 01/17/23 16:06> Imaging Radiologist's Impressions: Impressions Chest X-Ray 01/17/23 08:45 IMPRESSION: 1. Elevated right hemidiaphragm. 2. Mild cardiomegaly. 3. No acute pulmonary process seen. Abdomen Ultrasound 01/17/23 10:00 IMPRESSION: Limited visualization of the pancreas. Small left renal cyst. <POPEYE Hurt Last Filed: 01/17/23 16:06> Assessment and Plan (1) NSTEMI (non-ST elevated myocardial infarction): Status: Acute <POPEYE Hurt Last Filed: 01/17/23 16:06> Pt is a 72-year-old male with a PMH significant for?CAD s/p quintuple coronary artery bypass grafting in 2018, HTN, HLD, insulin-dependent diabetes type 2, and end-stage renal disease not currently on hemodialysis who presents to the ED with?worsening epigastric pain, nausea, and dry heaving for the past 2 days. In the ED labs showed markedly elevated troponin of >3600 with no evidence of ST elevations or depressions on EKG. Pt will be admitted to the hospital on telemetry for further workup and management of acute NSTEMI. Acute NSTEMI Patient's troponin at time of presentation >3600 EKG shows normal sinus rhythm with suggestion of LVH with repolarization abnormality, no evidence of ST elevations or depressions Patient with epigastric discomfort, nausea, dry heaves, but no chest pain/pressure, palpitations Patient placed on heparin drip, per cardiology Continue aspirin, statin, metoprolol, per cardiology Start on nitropaste 1 in q.6, per cardiology Started amlodipine 2.5 mg q.d., per cardiology Echocardiogram; if there is any significant reduction in LV ejection fraction and/or new regional wall motion abnormality will transfer to [facility] [place] for cardiac catheterization Trend troponins Cardiology consult Monitor on telemetry Epigastric pain Patient has had chronic, intermittent epigastric abdominal pain associated with eating for the past 6 months Patient has presented to [facility] ED 3 times, been diagnosed with pancreatitis and diverticulitis Patient is scheduled to get upper endoscopy on January 25 and colonoscopy in February Protonix Patient should avoid eating acidic food Patient should follow up outpatient with upper endoscopy and colonoscopy GI consult Insulin-dependent diabetes type 2 Hold degludec SSI End-stage renal disease Creatinine seems stable at baseline Monitor BMP Gout Continue allopurinol DNR/DNI Attending:?Dr. Longo DVT Prophylaxis: On heparin drip Pt will require a hospitalization of at least two nights for treatment and further evaluation of?acute NSTEMI. <POPEYE Hurt - Last Filed: 01/17/23 16:06> Pt is a 72-year-old male with a PMH significant for?CAD s/p quintuple coronary artery bypass grafting in 2018, HTN, HLD, insulin-dependent diabetes type 2, and end-stage renal disease not currently on hemodialysis who presents to the ED with?worsening epigastric pain, nausea, and dry heaving for the past 2 days. In the ED labs showed markedly elevated troponin of >3600 with no evidence of ST elevations or depressions on EKG. Pt will be admitted to the hospital on telemetry for further workup and management of acute NSTEMI. Acute NSTEMI Patient's troponin at time of presentation >3600 EKG shows normal sinus rhythm with suggestion of LVH with repolarization abnormality, no evidence of ST elevations or depressions Patient with epigastric discomfort, nausea, dry heaves, but no chest pain/pressure, palpitations Patient placed on heparin drip, per cardiology Continue aspirin, statin, metoprolol, per cardiology Start on nitropaste 1 in q.6, per cardiology Started amlodipine 2.5 mg q.d., per cardiology Echocardiogram; if there is any significant reduction in LV ejection fraction and/or new regional wall motion abnormality will transfer to [facility] [place] for cardiac catheterization Trend troponins Cardiology consult Monitor on telemetry Epigastric pain Patient has had chronic, intermittent epigastric abdominal pain associated with eating for the past 6 months Patient has presented to [facility] [place] ED 3 times, been diagnosed with pancreatitis and diverticulitis Patient is scheduled to get upper endoscopy on January 25 and colonoscopy in February Protonix Patient should avoid eating acidic food Patient should follow up outpatient with upper endoscopy and colonoscopy GI consult Insulin-dependent diabetes type 2 Hold degludec SSI End-stage renal disease Creatinine seems stable at baseline Monitor BMP Gout Continue allopurinol DNR/DNI Attending:?Dr. Longo DVT Prophylaxis: On heparin drip Pt will require a hospitalization of at least two nights for treatment and further evaluation of?acute NSTEMI. Addendum to history and physical by the advanced practice provider, POPEYE Adan I interviewed and examined the patient. I discussed their presentation and management with the RENARD. I reviewed the history and physical and agree with the documentation, with the following additions and corrections: 72yo M with CAD s/p 5v CABG in 2018, DM2, HTN, HLD, CKD5 not on HD, presenting with intermittent epigastric pain for the past 6 months and really much worse over the last 2 days. Has presented to [facility] and been diagnosed variously with pancreatitis and diverticulitis. He notes a 13 lb weight loss over the last month due to decreased PO intake from anorexia. Upon arrival in the ED< found to have hs-Tn-I >3600 with no EKG changes. TTE shows normal LVEF without obvious WMAs though limited by axis. Plan admit to telemetry, consult Cardiology, give heparin drip, give aspirin/statin/metoproll/NTG. Will need inpt stress test. Workup of epigastric pain in process as outpatient- supposed to have EGD + C-scope. To consider MRI of pancreas and doppler of meseneteric vessels. At this point the cardiac issues take priority. Serum creatinine is at baseline of 2-3. <Stef Longo MD - Last Filed: 01/17/23 18:24> Time Spent With Patient Time: Total time managing care of this patient today ____ minutes. <POPEYE Hurt - Last Filed: 01/17/23 16:06> Quality Stroke Does the patient have a stroke diagnosis?: No <POPEYE Hurt - Last Filed: 01/17/23 16:06> VTE Prior VTE?: No <POPEYE Hurt - Last Filed: 01/17/23 16:06> VTE Risk Level:: Medical - moderate - high <POPEYE Hurt - Last Filed: 01/17/23 16:06> VTE Device Contraindication: Treatment Not Indicated <POPEYE Hurt - Last Filed: 01/17/23 16:06> VTE Drug Contraindication: N/A - Med Ordered <POPEYE Hurt - Last Filed: 01/17/23 16:06>
[2023-01-17 14:52] LABS: Hematocrit 41.5 % (42.0-52.0); Hemoglobin 14.2 g/dl (14.0-18.0); Mean Corpuscular HGB Conc 34.2 g/dl (31.0-36.0); Mean Corpuscular Hemoglobin 26.2 pg (27.0-33.0); Mean Corpuscular Volume 76.6 fL (80.0-98.0); Mean Platelet Volume 9.1 fL (9.4-12.4); Platelet Count 239 X10*3/uL (160-400); Red Blood Count 5.42 X10*6/uL (4.60-5.80); Red Cell Distribution Width 12.9 % (11.0-16.0); White Blood Count 6.5 X10*3/uL (4.8-10.8)
--- NOTE | 2023-01-17 14:53 | PC.NURSE ---
pt difficult stick. 4 different techs were unsuccessful with getting labs. pt has fistula in L arm, only able to use R arm. labs successfully drawn by 5th tech. labs sent, waiting results.
[2023-01-17 14:59] LABS: Prothrombin Time 10.9 SEC (10.0-13.1)
[2023-01-17 15:01] LABS: PTT Heparin Drip 30.7 SEC (53-77.9)
[2023-01-17] MEDS: Heparin Sodium,Porcine 5,000 UNIT/ML VIAL 6700 UNIT IVPUSH (15:18)
[2023-01-17] MEDS: Heparin Sodium,Porcine/1/2NS 25,000 UNIT/250 ML IV.SOLN 11.73 UNIT IVCONT (15:22)
[2023-01-17 15:28] VITALS: BP 160/82; PULSE 63; RESP 16; O2SAT 92
[2023-01-17 15:43] LABS: Glucose, Whole Blood 92 mg/dL (60-115)
--- NOTE | 2023-01-17 16:21 | PC.NURSE ---
awaiting callback from floor for report
--- NOTE | 2023-01-17 16:29 | PC.NURSE ---
report given to floor. will communicate with transport
[2023-01-17 17:14] LABS: Glucose, Whole Blood 133 mg/dL (60-115)
[2023-01-17] MEDS: amLODIPine Besylate 2.5 MG TABLET PO (18:03)
[2023-01-17 18:18] LABS: Troponin-I High Sensitivity > 3600.0 ng/L (<3.5-35.0)
[2023-01-17 19:46] VITALS: BP 148/78; PULSE 64; RESP 20; TEMP 36.7; O2SAT 94
[2023-01-17 20:51] LABS: Glucose, Whole Blood 137 mg/dL (60-115)
[2023-01-17] MEDS: Metoprolol Tartrate 25 MG TABLET PO (21:06)
[2023-01-17] MEDS: Latanoprost 0.005 % Ophth Sol 2.5 ML DROPS 1 DROP EYE-BOTH (21:06)
[2023-01-17] MEDS: Nitroglycerin 2 % Oint 1 GM Packet 1 INCH TRANSDERMA (21:07)
[2023-01-17 21:43] LABS: PTT Heparin Drip 71.9 SEC (53-77.9)
[2023-01-17 23:47] VITALS: BP 143/75; PULSE 63; RESP 18; TEMP 36.8; O2SAT 91
--- NOTE | 2023-01-18 | ECG_ITS ---
Test Reason : abd pain, CAD Blood Pressure : / mmHG Vent. Rate : 064 BPM Atrial Rate : 064 BPM P-R Int : 154 ms QRS Dur : 104 ms QT Int : 484 ms P-R-T Axes : 021 -43 148 degrees QTc Int : 499 ms Normal sinus rhythm Left axis deviation Moderate voltage criteria for LVH, may be normal variant ( R in aVL , [place] product ) Cannot rule out Anterior infarct , age undetermined ST & T wave abnormality, consider lateral ischemia Abnormal ECG When compared with ECG of 17-JAN-2023 07:59, ST no longer elevated in Anterior leads Referred By: Stef Longo Electronically Signed By:JASON HOYOS MD
--- NOTE | 2023-01-18 | ECG_ITS ---
Test Reason : CP Blood Pressure : / mmHG Vent. Rate : 068 BPM Atrial Rate : 068 BPM P-R Int : 162 ms QRS Dur : 096 ms QT Int : 454 ms P-R-T Axes : 040 -47 140 degrees QTc Int : 482 ms Normal sinus rhythm Left anterior fascicular block Minimal voltage criteria for LVH, may be normal variant ( [place] product ) ST & T wave abnormality, consider lateral ischemia Prolonged QT Abnormal ECG When compared with ECG of 18-JAN-2023 08:14, No significant change was found Referred By: Stef Longo Electronically Signed By:JASON HOYOS MD
[2023-01-18] MEDS: ondansetron HCL 4 MG/2 ML VIAL IVPUSH ×2 (02:36→15:42)
[2023-01-18 03:34] LABS: Hematocrit 39.5 % (42.0-52.0); Hemoglobin 13.5 g/dl (14.0-18.0); Mean Corpuscular HGB Conc 34.2 g/dl (31.0-36.0); Mean Corpuscular Hemoglobin 26.2 pg (27.0-33.0); Mean Corpuscular Volume 76.7 fL (80.0-98.0); Mean Platelet Volume 9.1 fL (9.4-12.4); Platelet Count 227 X10*3/uL (160-400); Red Blood Count 5.15 X10*6/uL (4.60-5.80); Red Cell Distribution Width 12.8 % (11.0-16.0); White Blood Count 5.7 X10*3/uL (4.8-10.8)
[2023-01-18 03:40] LABS: Prothrombin Time 11.6 SEC (10.0-13.1)
[2023-01-18 03:42] VITALS: BP 149/77; PULSE 66; RESP 18; TEMP 37.5; O2SAT 92
[2023-01-18 03:42] LABS: PTT Heparin Drip 72.4 SEC (53-77.9)
[2023-01-18 03:55] LABS: Anion Gap 12 (12-20); Blood Urea Nitrogen 30 mg/dL (9-16); Calcium 8.2 mg/dL (8.4-10.2); Carbon Dioxide 27 mmol/L (22-29); Chloride 96 mmol/L (96-108); Creatinine Clr Calc Pharmacy 26.4; Estimated Glomerular Filt Rate 24; Glucose Random 89 mg/dL (60-115); Sodium 132 mmol/L (135-145)
[2023-01-18] MEDS: Acetaminophen 325 MG TABLET 650 MG PO ×2 (06:46→15:45)
[2023-01-18 07:27] VITALS: BP 162/77; PULSE 62; RESP 16; TEMP 36.8; O2SAT 92
[2023-01-18 08:02] LABS: Glucose, Whole Blood 106 mg/dL (60-115)
[2023-01-18] MEDS: Sertraline HCL 25 MG TABLET PO (08:03)
[2023-01-18] MEDS: Atorvastatin Calcium 80 MG TABLET PO (08:03)
[2023-01-18] MEDS: Metoprolol Tartrate 25 MG TABLET PO ×2 (08:04→15:42)
[2023-01-18] MEDS: Losartan Potassium 50 MG TABLET 100 MG PO (08:04)
[2023-01-18] MEDS: Cholecalciferol (Vitamin D3) 25 MCG TABLET 50 MCG PO (08:04)
[2023-01-18] MEDS: allopurinoL 300 MG TABLET 150 MG PO (08:04)
[2023-01-18] MEDS: amLODIPine Besylate 2.5 MG TABLET PO (08:04)
[2023-01-18] MEDS: Furosemide 40 MG TABLET PO (08:04)
[2023-01-18] MEDS: Aspirin Enteric Coated 81 MG TABLET.DR PO (08:04)
[2023-01-18] MEDS: Nitroglycerin 2 % Oint 1 GM Packet 1 INCH TRANSDERMA ×2 (08:06→15:42)
[2023-01-18] MEDS: Morphine Sulfate 2 MG/ML CARTRIDGE IVPUSH ×2 (08:06→15:45)
[2023-01-18 08:55] LABS: Magnesium 1.7 mg/dL (1.6-2.6)
--- NOTE | 2023-01-18 09:36 | MHC.CM.PN ---
EMR REVIEWED, PT ADMITTED W/NSTEMI, CM MET W/PT WHO IS A&O, PT REPORTS HE LIVES W/HIS [place], IS INDEP W/ALL CARE, DOES USE A WALKER AND SHOWER BENCH AND DENIES HOME SERVICES, UPON D/C PT WOULD LIKE TO RETURN HOME AND IS OPEN TO [facility] SERVICES W/NO PREFERENCE TO VNA COMPANY. PT VERIFIES PCP IS [facility] X3 AND HCP IS [place] [facility] [phone] AND COPY HAS BEEN REQUESTED. ANTIC HOME NO SERVICES VS NEW [facility] W/ [place] FOR TRANSPORT.
[2023-01-18] MEDS: Potassium Chloride ER 20 MEQ TAB.ER.PRT 40 MEQ PO (10:21)
[2023-01-18] MEDS: amLODIPine Besylate 5 MG TABLET PO (10:22)
[2023-01-18 10:40] LABS: Troponin-I High Sensitivity > 3600.0 ng/L (<3.5-35.0)
--- NOTE | 2023-01-18 10:42 | P.PNCA_ITS ---
Subjective Subjective Date of Service: 01/18/23 Principal diagnosis: elevated troponins. Interval history: Patient chest pain again this morning at 03:00. He did have a meal yesterday evening. Patient has no chest pain or interscapular pain. Troponins continued remained significantly elevated above 3600. Cannot see whether there is up trended down trend given the nonspecific nature of elevated troponins. Blood pressure is stable but elevated. Creatinine in is at the same range. Review of Systems Constitutional: Reports no additional constitutional complaints Cardiovascular: Reports no additional cardiovascular complaints Respiratory: Reports no additional respiratory complaints Gastrointestinal: Reports abdominal pain Musculoskeletal: Reports no additional musculoskeletal complaints Physical Exam Vital Signs: Last Vital Signs Temp 98.2 F 01/18/23 07:27 Pulse 62 01/18/23 07:27 Resp 16 01/18/23 07:27 BP 162/77 H 01/18/23 07:27 Pulse Ox 92 01/18/23 07:27 O2 Del Method Room Air 01/18/23 07:27 BMI result Body Mass Index 28.9 Const General: cooperative, comfortable, no acute distress, alert and awake Nutritional Appearance: overweight Orientation/consciousness: patient oriented x3 Neck Neck: Yes trachea midline, Yes supple and Yes no JVD Resp Effort & Inspection: normal respiratory effort Auscultation: clear to auscultation bilaterally Cardio Jugular venous distension: no JVD Palpation: normal PMI Rate: regular rate Rhythm: regular rhythm Heart sounds: S1 normal heart sound present, S2 normal heart sound present, no click, no gallops, no murmurs and no rubs GI Auscultation: normal bowel sounds Neuro General: patient oriented x3 and no focal motor deficits Extrem General: Yes no clubbing, cyanosis or edema Objective Labs and Meds 01/18/23 03:28 01/18/23 03:28 Lab results: Laboratory Results - last 24 hr 01/17/23 01/17/23 01/17/23 07:55 12:15 14:45 WBC RBC Hgb Hct MCV MCH MCHC RDW Plt Count MPV Absolute Nucleated RBC Nucleated RBC % (auto) PT 10.9 INR 1.0 aPTT Heparin Protocol 30.7 L Sodium Potassium Chloride Carbon Dioxide Anion Gap BUN Creatinine Estim Creat Clear Calc Estimated GFR POC Glucose Random Glucose 127 H Calcium Magnesium Troponin I High Sens Urine Color Yellow Urine Appearance Turbid Urine pH 5.5 Ur Specific [place] 1.015 Urine Protein 300 (3+) H Urine Glucose (UA) 250 H Urine Ketones Negative Urine Blood Moderate (2+) H Urine Nitrite Negative Ur Leukocyte Esterase Negative Urine RBC 11-20 H Urine WBC 0-5 Ur Squamous Epith Cells 0-2 Other Crystals Present Urine Bacteria None Seen Hyaline Casts 6-10 Granular Casts Present 01/17/23 01/17/23 01/17/23 14:46 15:36 17:10 WBC 6.5 RBC 5.42 Hgb 14.2 Hct 41.5 L MCV 76.6 L MCH 26.2 L MCHC 34.2 RDW 12.9 Plt Count 239 MPV 9.1 L Absolute Nucleated RBC 0.000 Nucleated RBC % (auto) 0.0 PT INR aPTT Heparin Protocol Sodium Potassium Chloride Carbon Dioxide Anion Gap BUN Creatinine Estim Creat Clear Calc Estimated GFR POC Glucose 92 133 H Random Glucose Calcium Magnesium Troponin I High Sens Urine Color Urine Appearance Urine pH Ur Specific [place] Urine Protein Urine Glucose (UA) Urine Ketones Urine Blood Urine Nitrite Ur Leukocyte Esterase Urine RBC Urine WBC Ur Squamous Epith Cells Other Crystals Urine Bacteria Hyaline Casts Granular Casts 01/17/23 01/17/23 01/17/23 17:25 20:33 21:19 WBC RBC Hgb Hct MCV MCH MCHC RDW Plt Count MPV Absolute Nucleated RBC Nucleated RBC % (auto) PT INR aPTT Heparin Protocol 71.9 D Sodium Potassium Chloride Carbon Dioxide Anion Gap BUN Creatinine Estim Creat Clear Calc Estimated GFR POC Glucose 137 H Random Glucose Calcium Magnesium Troponin I High Sens > 3600.0 H* Urine Color Urine Appearance Urine pH Ur Specific [place] Urine Protein Urine Glucose (UA) Urine Ketones Urine Blood Urine Nitrite Ur Leukocyte Esterase Urine RBC Urine WBC Ur Squamous Epith Cells Other Crystals Urine Bacteria Hyaline Casts Granular Casts 01/18/23 01/18/23 01/18/23 03:28 03:28 03:28 WBC 5.7 RBC 5.15 Hgb 13.5 L Hct 39.5 L MCV 76.7 L MCH 26.2 L MCHC 34.2 RDW 12.8 Plt Count 227 MPV 9.1 L Absolute Nucleated RBC 0.000 Nucleated RBC % (auto) 0.0 PT 11.6 INR 1.0 aPTT Heparin Protocol 72.4 Sodium Potassium Chloride Carbon Dioxide Anion Gap BUN Creatinine Estim Creat Clear Calc Estimated GFR POC Glucose Random Glucose Calcium Magnesium Troponin I High Sens Urine Color Urine Appearance Urine pH Ur Specific [place] Urine Protein Urine Glucose (UA) Urine Ketones Urine Blood Urine Nitrite Ur Leukocyte Esterase Urine RBC Urine WBC Ur Squamous Epith Cells Other Crystals Urine Bacteria Hyaline Casts Granular Casts 01/18/23 01/18/23 01/18/23 03:28 07:57 09:47 WBC RBC Hgb Hct MCV MCH MCHC RDW Plt Count MPV Absolute Nucleated RBC Nucleated RBC % (auto) PT INR aPTT Heparin Protocol Sodium 132 L Potassium 3.0 L Chloride 96 Carbon Dioxide 27 Anion Gap 12 BUN 30 H Creatinine 2.69 H Estim Creat Clear Calc 26.4 Estimated GFR 24 POC Glucose 106 Random Glucose 89 Calcium 8.2 L Magnesium 1.7 Troponin I High Sens > 3600.0 H* Urine Color Urine Appearance Urine pH Ur Specific [place] Urine Protein Urine Glucose (UA) Urine Ketones Urine Blood Urine Nitrite Ur Leukocyte Esterase Urine RBC Urine WBC Ur Squamous Epith Cells Other Crystals Urine Bacteria Hyaline Casts Granular Casts Imaging Radiologist's impression: Impressions Abdomen Ultrasound 01/17/23 10:00 IMPRESSION: Limited visualization of the pancreas. Small left renal cyst. Progress Note: A&P Assessment and plan (1) NSTEMI (non-ST elevated myocardial infarction): Status: Acute Assessment and Plan: NSTEMI with persistently elevated troponins, could be reduced clearance due to chronic kidney disease causing persistence in elevation of troponin. Although the troponin elevation is concerning. His symptoms are very atypical. Echocardiogram shows preserved LV systolic function with possible basal anterolateral wall motion abnormality in circumflex territory. Patient continues to have no anginal sounding chest discomfort. Will continue IV heparin. Continue treat his blood pressure. His amlodipine was increased. Continue nitropaste as well as metoprolol. Continue high-intensity statin therapy and aspirin. Discussed with his own digital associate as well given his advanced kidney dysfunction to pursue noninvasive workup. Will perform resting myocardial perfusion imaging today. Would like to see troponin downtrending prior to performing a stress perfusion study which could happen either on Tuesday or . GI consult is in the system. Pursue GI workup as planned. Will continue to follow with the patient. Time Spent With Patient Time: Total time managing care of this patient today ____ minutes. Progress Note: Quality Stroke Does the patient have a stroke diagnosis?: No Procedures Date of Service Date of Service: 01/18/23
[2023-01-18 11:09] LABS: Glucose, Whole Blood 139 mg/dL (60-115)
[2023-01-18 11:38] VITALS: BP 154/74; PULSE 64; RESP 16; TEMP 37.1; O2SAT 94
--- NOTE | 2023-01-18 11:45 | P.PNIM_ITS ---
Subjective Subjective Date of Service: 01/18/23 Interval History: has had a few episodes of postprandial epigastric pain; no chest pain Review of Systems Review of Systems: Yes all other systems are reviewed and are negative Physical Exam Vital Signs: Vital Signs: Last Vital Signs Temp 98.8 F 01/18/23 11:38 Pulse 64 01/18/23 11:38 Resp 16 01/18/23 11:38 BP 154/74 H 01/18/23 11:38 Pulse Ox 94 01/18/23 11:38 O2 Del Method Room Air 01/18/23 11:38 BMI result Body Mass Index 28.9 Gen: in no acute distress HEENT: sclera anicteric, moist mucus membranes Neck: supple Lungs: clear to auscultation bilaterally Heart: regular rate and rhythm, no murmurs Abd: soft, non-tender, non-distended Ext: no edema Skin: warm/well-perfused Neuro: alert and oriented x3, no focal findings Psych: appropriate affect Objective Data Active Medications Acetaminophen (Acetaminophen 325 Mg Tablet) 650 mg PO Q6H PRN PRN Reason: Pain, Mild (Pain Scale 1-3) Last Admin: 01/18/23 06:46 Dose: 650 mg Documented By: MARY Allopurinol (Allopurinol 300 Mg Tablet) 150 mg PO DAILY [facility] Last Admin: 01/18/23 08:04 Dose: 150 mg Documented By: NAZIA Amlodipine Besylate (Amlodipine Besylate 5 Mg Tablet) 5 mg PO DAILY [facility]; Protocol Last Admin: 01/18/23 10:22 Dose: 5 mg Documented By: NAZIA Aspirin (Aspirin Enteric Coated 81 Mg Tablet.) 81 mg PO DAILY [facility] Last Admin: 01/18/23 08:04 Dose: 81 mg Documented By: NAZIA Atorvastatin Calcium (Atorvastatin Calcium 80 Mg Tablet) 80 mg PO DAILY [facility] Last Admin: 01/18/23 08:03 Dose: 80 mg Documented By: NAZIA Furosemide (Furosemide 40 Mg Tablet) 40 mg PO DAILY [facility]; Protocol Last Admin: 01/18/23 08:04 Dose: 40 mg Documented By: NAZIA Glucose (Glucose Gel 15 Gm Gel..Gram.) 15 gm PO Q15M PRN; Protocol PRN Reason: per Hypoglycemia Standing Ord. Heparin Sodium (Porcine) (Heparin Sodium,Porcine 5,000 Unit/Ml Vial) 3,400 unit 40 unit/kg (3400 unit) IVPUSH PROTOCOL BOLUS PRN; Protocol PRN Reason: 40 unit/kg - Heparin Protocol Heparin Sodium (Porcine) (Heparin Sodium,Porcine 5,000 Unit/Ml Vial) 6,700 unit 80 unit/kg (6700 unit) IVPUSH PROTOCOL BOLUS PRN; Protocol PRN Reason: 80 unit/kg - Heparin Protocol Last Admin: 01/17/23 15:18 Dose: 6,700 unit Documented By: DARIN Heparin Sodium/Sodium Chloride (Heparin Sodium,Porcine/1/2ns) 25,000 unit in 250 mls @ 0 mls/hr IVCONT .Q0M FRANCY; Protocol Last Titration: 01/18/23 04:14 Dose: 14 units/kg/hr, 11.73 mls/hr Documented By: MARY Co-signed By: ARABELLA Dextrose (D10) 250 mls @ 750 mls/hr IV Q15M PRN; Protocol PRN Reason: per Hypoglycemia Standing Ord. Insulin Human Lispro (Insulin Lispro 100 Unit/Ml 3 Ml Vial) 0 unit SUBCUT QI [facility]; Protocol Last Admin: 01/18/23 11:22 Dose: Not Given Documented By: NAZIA Non-Admin Reason: No Insulin Coverage Latanoprost (Latanoprost 0.005 % Ophth Jyothi 2.5 Ml Drops) 1 drop EYE-BOTH BEDTIME [facility] Last Admin: 01/17/23 21:06 Dose: 1 drop Documented By: MARY Losartan Potassium (Losartan Potassium 50 Mg Tablet) 100 mg PO DAILY [facility]; Protocol Last Admin: 01/18/23 08:04 Dose: 100 mg Documented By: NAZIA Metoprolol Tartrate (Metoprolol Tartrate 25 Mg Tablet) 25 mg PO TID [facility]; Protocol Last Admin: 01/18/23 08:04 Dose: 25 mg Documented By: NAZIA Morphine Sulfate (Morphine Sulfate 2 Mg/Ml Cartridge) 2 mg IVPUSH Q4H PRN; Protocol PRN Reason: severe pain Last Admin: 01/18/23 08:06 Dose: 2 mg Documented By: NAZIA Nitroglycerin (Nitroglycerin 2 % Oint 1 Gm Packet) 1 inch TRANSDERMA RQ6H WHILE AWAKE [facility] Last Admin: 01/18/23 08:06 Dose: 1 inch Documented By: NAZIA Ondansetron HCl (Ondansetron Hcl 4 Mg/2 Ml Vial) 4 mg IVPUSH Q8H PRN PRN Reason: Nausea and Vomiting Last Admin: 01/18/23 02:36 Dose: 4 mg Documented By: MARY Sertraline HCl (Sertraline Hcl 25 Mg Tablet) 25 mg PO DAILY [facility] Last Admin: 01/18/23 08:03 Dose: 25 mg Documented By: NAZIA Sodium Chloride (0.9 % Sodium Chloride Flush 3 Ml Syringe) 3 ml IVFLUSH QSHIFT [facility] Last Admin: 01/18/23 08:06 Dose: Not Given Documented By: NAZIA Non-Admin Reason: IV Running Timolol Maleate (Timolol Maleate 0.5 % Oph Jyothi 5 Ml Drbtl) 1 drop EYE-BOTH DAILY [facility] Last Admin: 01/18/23 10:23 Dose: Not Given Documented By: NAZIA Non-Admin Reason: not up from pharmacy Vitamin D (Cholecalciferol (Vitamin D3) 25 Mcg Tablet) 50 mcg PO DAILY [facility] Last Admin: 01/18/23 08:04 Dose: 50 mcg Documented By: NAZIA Labs 01/18/23 03:28 01/18/23 03:28 Labs: Laboratory Results - last 24 hr 01/17/23 01/17/23 01/17/23 12:15 14:45 14:46 MCV 76.6 L MCH 26.2 L MCHC 34.2 RDW 12.9 Plt Count 239 MPV 9.1 L Absolute Nucleated RBC 0.000 Nucleated RBC % (auto) 0.0 PT 10.9 INR 1.0 aPTT Heparin Protocol 30.7 L Anion Gap Estim Creat Clear Calc Estimated GFR POC Glucose Random Glucose Calcium Magnesium Troponin I High Sens Urine Color Yellow Urine Appearance Turbid Urine pH 5.5 Ur Specific [place] 1.015 Urine Protein 300 (3+) H Urine Glucose (UA) 250 H Urine Ketones Negative Urine Blood Moderate (2+) H Urine Nitrite Negative Ur Leukocyte Esterase Negative Urine RBC 11-20 H Urine WBC 0-5 Ur Squamous Epith Cells 0-2 Other Crystals Present Urine Bacteria None Seen Hyaline Casts 6-10 Granular Casts Present 01/17/23 01/17/23 01/17/23 15:36 17:10 17:25 MCV MCH MCHC RDW Plt Count MPV Absolute Nucleated RBC Nucleated RBC % (auto) PT INR aPTT Heparin Protocol Anion Gap Estim Creat Clear Calc Estimated GFR POC Glucose 92 133 H Random Glucose Calcium Magnesium Troponin I High Sens > 3600.0 H* Urine Color Urine Appearance Urine pH Ur Specific [place] Urine Protein Urine Glucose (UA) Urine Ketones Urine Blood Urine Nitrite Ur Leukocyte Esterase Urine RBC Urine WBC Ur Squamous Epith Cells Other Crystals Urine Bacteria Hyaline Casts Granular Casts 01/17/23 01/17/23 01/18/23 20:33 21:19 03:28 MCV 76.7 L MCH 26.2 L MCHC 34.2 RDW 12.8 Plt Count 227 MPV 9.1 L Absolute Nucleated RBC 0.000 Nucleated RBC % (auto) 0.0 PT INR aPTT Heparin Protocol 71.9 D Anion Gap Estim Creat Clear Calc Estimated GFR POC Glucose 137 H Random Glucose Calcium Magnesium Troponin I High Sens Urine Color Urine Appearance Urine pH Ur Specific [place] Urine Protein Urine Glucose (UA) Urine Ketones Urine Blood Urine Nitrite Ur Leukocyte Esterase Urine RBC Urine WBC Ur Squamous Epith Cells Other Crystals Urine Bacteria Hyaline Casts Granular Casts 01/18/23 01/18/23 01/18/23 03:28 03:28 03:28 MCV MCH MCHC RDW Plt Count MPV Absolute Nucleated RBC Nucleated RBC % (auto) PT 11.6 INR 1.0 aPTT Heparin Protocol 72.4 Anion Gap 12 Estim Creat Clear Calc 26.4 Estimated GFR 24 POC Glucose Random Glucose 89 Calcium 8.2 L Magnesium 1.7 Troponin I High Sens Urine Color Urine Appearance Urine pH Ur Specific [place] Urine Protein Urine Glucose (UA) Urine Ketones Urine Blood Urine Nitrite Ur Leukocyte Esterase Urine RBC Urine WBC Ur Squamous Epith Cells Other Crystals Urine Bacteria Hyaline Casts Granular Casts 01/18/23 01/18/23 01/18/23 07:57 09:47 11:01 MCV MCH MCHC RDW Plt Count MPV Absolute Nucleated RBC Nucleated RBC % (auto) PT INR aPTT Heparin Protocol Anion Gap Estim Creat Clear Calc Estimated GFR POC Glucose 106 139 H Random Glucose Calcium Magnesium Troponin I High Sens > 3600.0 H* Urine Color Urine Appearance Urine pH Ur Specific [place] Urine Protein Urine Glucose (UA) Urine Ketones Urine Blood Urine Nitrite Ur Leukocyte Esterase Urine RBC Urine WBC Ur Squamous Epith Cells Other Crystals Urine Bacteria Hyaline Casts Granular Casts TTE 01/17/23 1.? Normal LV systolic function with moderate left ventricular hypertrophy with grade 2 diastolic dysfunction ? 2.? Moderate left atrial enlargement ? 3.? At least mild mitral regurgitation ? 4.? No gross pericardial effusion? Findings Procedure Information Contrast agent, definity, is being given per protocol without apparent complications. Left Ventricle Normal left ventricular size and systolic function. There is moderately increased left ventricular wall thickness.? The visually estimated ejection fraction is between 55-60%.? Spectral Doppler is indicative of a pseudonormal filling pattern.? E/E prime ratio is >15, consistent with elevated filling pressures.? Evidence suggests grade II (moderate) diastolic dysfunction.? The images are off axis and basal anterolateral hypokinesis cannot be entirely ruled out Assessment and Plan (1) NSTEMI (non-ST elevated myocardial infarction): Status: Acute Plan d#2 72yo M with CAD s/p 5v CABG [2018], DM2, HTN, HLD, CKD4 presenting with episodic epigastric pain + nausea for past 2 days but has been occuring repeatedly over the last 6 months. Found to have hs-Tn-I >3600 with no EKG changes # NSTEMI - atypical symptoms and CKD4 but high-risk. TTE with normal LVEF, cannot rule out LCX WMA. Cardiology following. Continue medical management with heparinization, nitro-paste, metoprolol, ASA, statin. Plan resting MPS today, stress perfusion once hs-Tn-I trending down # abd pain/weight loss - GI consulted, will check abd mesenteric Dopplers, MRI pancreas once off heparin gtt # DM2 - correction-dose lispro # CKD4 - SCr at baseline # gout - allopurinol # VTE prophylaxis: heparinizationm # dispo: TBD In my clinical judgment, the patient requires continued inpatient hospitalization for the following reasons: heparinization for NSTEMI Time Spent With Patient Time: Total time managing care of this patient today ___50_ minutes. Quality Stroke Does the patient have a stroke diagnosis?: No VTE Prior VTE?: No VTE Risk Level:: Medical - moderate - high VTE Device Contraindication: Treatment Not Indicated VTE Drug Contraindication: N/A - Med Ordered
[2023-01-18] MEDS: Heparin Sodium,Porcine/1/2NS 25,000 UNIT/250 ML IV.SOLN 11.73 UNIT IVCONT (12:53)
[2023-01-18 15:35] VITALS: BP 132/69; PULSE 69; RESP 16; O2SAT 98
--- NOTE | 2023-01-18 15:38 | PC.NURSE ---
Assumed care of patient at this time.
[2023-01-18 15:39] LABS: Glucose, Whole Blood 172 mg/dL (60-115)
--- NOTE | 2023-01-18 15:45 | PC.NURSE ---
Patient complaining of 5/10 chest tightness, nonradiating, non reproducible upon palpation, nausea, and slight dizziness. Dr. Qing mitchell, EKG obtained, medicated (See eMAR). 2nd IV access established. Heparin gtt continues in place running at 14u/kg/hr.
[2023-01-18] MEDS: 0.9 % Sodium Chloride Flush 3 ML SYRINGE IVFLUSH (15:48)
[2023-01-18] MEDS: Morphine Sulfate 4 MG/ML CARTRIDGE IVPUSH (16:17)
--- NOTE | 2023-01-18 16:25 | P.DS_ITS ---
DS: Providers Provider Date of Service: 01/18/23 Date of admission: 01/17/23 15:22 Date of discharge: 01/18/23 Primary care physician: Miguelangel Beckham MD Consults: 01/17/23 11:25 Consult to Cardiology Stat [place]ing [place] [facility] [place] Reason for consultation: NSTEMI Has provider been notified: Yes 01/17/23 15:32 Consult to Gastroenterology Routine Consulting Provider: Madeleine Locke Reason for consultation: Abdominal pain, anorexia, weight loss Has provider been notified: Yes DS: Transfer Hospital Acceptance Name of Facility: [facility] Accepting Provider: Abdias Nina MD DS: Diagnosis Discharge Diagnosis (1) NSTEMI (non-ST elevated myocardial infarction): Status: Acute (2) Abdominal pain, acute, epigastric: Status: Acute (3) Abnormal weight loss: Status: Acute (4) CKD (chronic kidney disease): Status: Acute DS: Summary Hospital Course Hospital Course: from admission H+P by hospitalist POPEYE Adan, 01/17/23: Pt is a 72-year-old male with a PMH significant for?CAD s/p quintuple coronary artery bypass grafting in 2018,? HTN, HLD, insulin-dependent diabetes type 2, and end-stage renal disease not currently on hemodialysis who presents to the ED with?worsening epigastric pain, nausea, and dry heaving for the past 2 days.? Patient states that he has been having intermittent epigastric pain for the past 6 months.? Describes pain as sometimes crampy in nature and other times a 9, burning pain.? Mostly associated with eating, and particularly eating acidic foods.? Patient has presenting to [facility] ED 3 times for the symptoms and had three CT scans of abdomen and pelvis.? One time patient was diagnosed pancreatitis because elevated lipase, another with diverticulitis.? However patient has not received a resolution of his symptoms and has had decreased intake of both solids and liquids, and lost 13 lb in the last month alone bec ause of anorexia? Patient presents to the emergency room today because of epigastric discomfort that has been accompanied by nausea and dry heaves and not associated with eating, all of which are new symptoms.? Patient denies constipation or diarrhea, but notes that his stool has been softer than normal these past 6 months.? In the ED labs showed markedly elevated troponin of >3600 with no evidence of ST elevations or depressions on EKG.? Patient denies chest pain/pressure, palpitations.? No shortness of breath.? Cardiology was consulted and had patient placed heparin drip and admitted for further workup and evaluation.? Of note, patient has an upper endoscopy scheduled outpatient for January 25 and a colonoscopy scheduled in February. In the ED patient was afebrile but tachypneic at up to 22, and slightly hypertensive up to 180/86. Labs were significant for sodium of 133, potassium 3.0, BUN 32, creatinine 2.58, alk-phos of 177, troponin > 3600, albumin of 2.7. CXR shows mild cardiomegaly and elevated right hemidiaphragm, but no acute pulmonary process seen. Abdominal ultrasound showed small left renal cyst and limited visualization of the pancreas due to bowel gas. EKG demonstrated showed normal sinus rhythm with suggestion of LVH with repolarization abnormality, but no ST elevations or depressions. Pt was treated with sodium chloride, ondansetron, morphine, pantoprazole, aspirin, and started on heparin drip. Pt will be admitted to the hospital on telemetry for further workup and management of acute NSTEMI. Mr Conte is a 72yo M with CAD s/p 5v CABG [2018], DM2, HTN, HLD, CKD4 presenting with episodic epigastric pain + nausea for past 2 days but has been occuring repeatedly over the last 6 months.? Found to have hs-Tn-I >3600 with lateral TW inversions. He was admitted to the [facility]. Cardiology was consulted. His symptoms were quite atypical and troponins were difficult to interpret in the face of renal insufficiency. TTE with normal LVEF, cannot rule out LCX WMA.? Cardiology [Dr Fernando consulted]. He was placed on heparin drip, NTG paste, metoprolol, ASA, and statin. Plan was for resting MPS then stress perfusion once hs-Tn-I was trending down; however, on 01/18/23 in the afternoon, he developed more typical angina-type chest pressure. He was given IV morphine with relief of the pressure. Dr Fernando [place] [facility] [place]. As for abdominal pain and weight loss, GI was consulted. Workup was to include mesenteric Dopplers and MRI of the pancreas, with possible EGD and colonoscopy if these were unrevealing, but the cardiac issues took priority and this workup will be deferred. Time Spent with Patient Time attestation: Total time managing care of this patient today __45__ minutes. Discharge coordination time: Greater than 30 minutes Quality: Safe Use of Opioids Does Pt have an Active Cancer Diagnosis on the Problem List?: No Quality: Stroke Does the patient have a stroke diagnosis?: No Physical Exam Vital Signs: Vital Signs: Last Vital Signs Temp 98.8 F 01/18/23 11:38 Pulse 69 01/18/23 15:35 Resp 16 01/18/23 15:35 BP 132/69 01/18/23 15:35 Pulse Ox 98 01/18/23 15:35 O2 Del Method Room Air 01/18/23 15:35 BMI result Body Mass Index 28.9 Gen: in no acute distress HEENT: sclera anicteric, moist mucus membranes Neck: supple Lungs: clear to auscultation bilaterally Heart: regular rate and rhythm, no murmurs Abd: soft, non-tender, non-distended Ext: no edema Skin: warm/well-perfused Neuro: alert and oriented x3, no focal findings Psych: appropriate affect DS: Data Data Completed and Pending Completed studies during hospitalization [Text1]: ITS Impressions Chest X-Ray 01/17/23 08:45 IMPRESSION: 1. Elevated right hemidiaphragm. 2. Mild cardiomegaly. 3. No acute pulmonary process seen. Abdomen Ultrasound 01/17/23 10:00 IMPRESSION: Limited visualization of the pancreas. Small left renal cyst. Laboratory Results - last 72 hr 01/17/23 01/17/23 01/17/23 07:55 07:55 07:55 WBC 7.0 RBC 5.94 H Hgb 15.7 Hct 45.1 MCV 75.9 L MCH 26.4 L MCHC 34.8 RDW 12.7 Plt Count 255 MPV 9.2 L Immature Gran % (Auto) 0.3 Neut % (Auto) 58.3 Lymph % (Auto) 25.2 [place] % (Auto) 14.9 H Eos % (Auto) 0.9 Baso % (Auto) 0.4 Lymph # (Auto) 1.8 [place] # (Auto) 1.0 Eos # (Auto) 0.1 Baso # (Auto) 0.0 Abs Immat Gran (auto) 0.02 Absolute Neuts (auto) 4.1 Absolute Nucleated RBC 0.000 Nucleated RBC % (auto) 0.0 PT INR aPTT Heparin Protocol Sodium 133 L Potassium 3.0 L Chloride 94 L Carbon Dioxide 29 Anion Gap 13 BUN 32 H Creatinine 2.58 H Estim Creat Clear Calc 27.2 Estimated GFR 25 POC Glucose Random Glucose 127 H Calcium 8.5 Magnesium Total Bilirubin 0.6 AST 19 ALT 8 Alkaline Phosphatase 177 H Troponin I High Sens > 3600.0 H* Total Protein 5.5 L Albumin 2.7 L Lipase 38 Urine Color Urine Appearance Urine pH Ur Specific [place] Urine Protein Urine Glucose (UA) Urine Ketones Urine Blood Urine Nitrite Ur Leukocyte Esterase Urine RBC Urine WBC Ur Squamous Epith Cells Other Crystals Urine Bacteria Hyaline Casts Granular Casts 01/17/23 01/17/23 01/17/23 12:15 14:45 14:46 WBC 6.5 RBC 5.42 Hgb 14.2 Hct 41.5 L MCV 76.6 L MCH 26.2 L MCHC 34.2 RDW 12.9 Plt Count 239 MPV 9.1 L Immature Gran % (Auto) Neut % (Auto) Lymph % (Auto) [place] % (Auto) Eos % (Auto) Baso % (Auto) Lymph # (Auto) [place] # (Auto) Eos # (Auto) Baso # (Auto) Abs Immat Gran (auto) Absolute Neuts (auto) Absolute Nucleated RBC 0.000 Nucleated RBC % (auto) 0.0 PT 10.9 INR 1.0 aPTT Heparin Protocol 30.7 L Sodium Potassium Chloride Carbon Dioxide Anion Gap BUN Creatinine Estim Creat Clear Calc Estimated GFR POC Glucose Random Glucose Calcium Magnesium Total Bilirubin AST ALT Alkaline Phosphatase Troponin I High Sens Total Protein Albumin Lipase Urine Color Yellow Urine Appearance Turbid Urine pH 5.5 Ur Specific [place] 1.015 Urine Protein 300 (3+) H Urine Glucose (UA) 250 H Urine Ketones Negative Urine Blood Moderate (2+) H Urine Nitrite Negative Ur Leukocyte Esterase Negative Urine RBC 11-20 H Urine WBC 0-5 Ur Squamous Epith Cells 0-2 Other Crystals Present Urine Bacteria None Seen Hyaline Casts 6-10 Granular Casts Present 01/17/23 01/17/23 01/17/23 15:36 17:10 17:25 WBC RBC Hgb Hct MCV MCH MCHC RDW Plt Count MPV Immature Gran % (Auto) Neut % (Auto) Lymph % (Auto) [place] % (Auto) Eos % (Auto) Baso % (Auto) Lymph # (Auto) [place] # (Auto) Eos # (Auto) Baso # (Auto) Abs Immat Gran (auto) Absolute Neuts (auto) Absolute Nucleated RBC Nucleated RBC % (auto) PT INR aPTT Heparin Protocol Sodium Potassium Chloride Carbon Dioxide Anion Gap BUN Creatinine Estim Creat Clear Calc Estimated GFR POC Glucose 92 133 H Random Glucose Calcium Magnesium Total Bilirubin AST ALT Alkaline Phosphatase Troponin I High Sens > 3600.0 H* Total Protein Albumin Lipase Urine Color Urine Appearance Urine pH Ur Specific [place] Urine Protein Urine Glucose (UA) Urine Ketones Urine Blood Urine Nitrite Ur Leukocyte Esterase Urine RBC Urine WBC Ur Squamous Epith Cells Other Crystals Urine Bacteria Hyaline Casts Granular Casts 01/17/23 01/17/23 01/18/23 20:33 21:19 03:28 WBC 5.7 RBC 5.15 Hgb 13.5 L Hct 39.5 L MCV 76.7 L MCH 26.2 L MCHC 34.2 RDW 12.8 Plt Count 227 MPV 9.1 L Immature Gran % (Auto) Neut % (Auto) Lymph % (Auto) [place] % (Auto) Eos % (Auto) Baso % (Auto) Lymph # (Auto) [place] # (Auto) Eos # (Auto) Baso # (Auto) Abs Immat Gran (auto) Absolute Neuts (auto) Absolute Nucleated RBC 0.000 Nucleated RBC % (auto) 0.0 PT INR aPTT Heparin Protocol 71.9 D Sodium Potassium Chloride Carbon Dioxide Anion Gap BUN Creatinine Estim Creat Clear Calc Estimated GFR POC Glucose 137 H Random Glucose Calcium Magnesium Total Bilirubin AST ALT Alkaline Phosphatase Troponin I High Sens Total Protein Albumin Lipase Urine Color Urine Appearance Urine pH Ur Specific [place] Urine Protein Urine Glucose (UA) Urine Ketones Urine Blood Urine Nitrite Ur Leukocyte Esterase Urine RBC Urine WBC Ur Squamous Epith Cells Other Crystals Urine Bacteria Hyaline Casts Granular Casts 01/18/23 01/18/23 01/18/23 03:28 03:28 03:28 WBC RBC Hgb Hct MCV MCH MCHC RDW Plt Count MPV Immature Gran % (Auto) Neut % (Auto) Lymph % (Auto) [place] % (Auto) Eos % (Auto) Baso % (Auto) Lymph # (Auto) [place] # (Auto) Eos # (Auto) Baso # (Auto) Abs Immat Gran (auto) Absolute Neuts (auto) Absolute Nucleated RBC Nucleated RBC % (auto) PT 11.6 INR 1.0 aPTT Heparin Protocol 72.4 Sodium 132 L Potassium 3.0 L Chloride 96 Carbon Dioxide 27 Anion Gap 12 BUN 30 H Creatinine 2.69 H Estim Creat Clear Calc 26.4 Estimated GFR 24 POC Glucose Random Glucose 89 Calcium 8.2 L Magnesium 1.7 Total Bilirubin AST ALT Alkaline Phosphatase Troponin I High Sens Total Protein Albumin Lipase Urine Color Urine Appearance Urine pH Ur Specific [place] Urine Protein Urine Glucose (UA) Urine Ketones Urine Blood Urine Nitrite Ur Leukocyte Esterase Urine RBC Urine WBC Ur Squamous Epith Cells Other Crystals Urine Bacteria Hyaline Casts Granular Casts 01/18/23 01/18/23 01/18/23 07:57 09:47 11:01 WBC RBC Hgb Hct MCV MCH MCHC RDW Plt Count MPV Immature Gran % (Auto) Neut % (Auto) Lymph % (Auto) [place] % (Auto) Eos % (Auto) Baso % (Auto) Lymph # (Auto) [place] # (Auto) Eos # (Auto) Baso # (Auto) Abs Immat Gran (auto) Absolute Neuts (auto) Absolute Nucleated RBC Nucleated RBC % (auto) PT INR aPTT Heparin Protocol Sodium Potassium Chloride Carbon Dioxide Anion Gap BUN Creatinine Estim Creat Clear Calc Estimated GFR POC Glucose 106 139 H Random Glucose Calcium Magnesium Total Bilirubin AST ALT Alkaline Phosphatase Troponin I High Sens > 3600.0 H* Total Protein Albumin Lipase Urine Color Urine Appearance Urine pH Ur Specific [place] Urine Protein Urine Glucose (UA) Urine Ketones Urine Blood Urine Nitrite Ur Leukocyte Esterase Urine RBC Urine WBC Ur Squamous Epith Cells Other Crystals Urine Bacteria Hyaline Casts Granular Casts 01/18/23 15:18 WBC RBC Hgb Hct MCV MCH MCHC RDW Plt Count MPV Immature Gran % (Auto) Neut % (Auto) Lymph % (Auto) [place] % (Auto) Eos % (Auto) Baso % (Auto) Lymph # (Auto) [place] # (Auto) Eos # (Auto) Baso # (Auto) Abs Immat Gran (auto) Absolute Neuts (auto) Absolute Nucleated RBC Nucleated RBC % (auto) PT INR aPTT Heparin Protocol Sodium Potassium Chloride Carbon Dioxide Anion Gap BUN Creatinine Estim Creat Clear Calc Estimated GFR POC Glucose 172 H Random Glucose Calcium Magnesium Total Bilirubin AST ALT Alkaline Phosphatase Troponin I High Sens Total Protein Albumin Lipase Urine Color Urine Appearance Urine pH Ur Specific [place] Urine Protein Urine Glucose (UA) Urine Ketones Urine Blood Urine Nitrite Ur Leukocyte Esterase Urine RBC Urine WBC Ur Squamous Epith Cells Other Crystals Urine Bacteria Hyaline Casts Granular Casts TTE 01/17/23 1.? Normal LV systolic function with moderate left ventricular hypertrophy with grade 2 diastolic dysfunction ? 2.? Moderate left atrial enlargement ? 3.? At least mild mitral regurgitation ? 4.? No gross pericardial effusion? Findings Procedure Information Contrast agent, definity, is being given per protocol without apparent complications. Left Ventricle Normal left ventricular size and systolic function. There is moderately increased left ventricular wall thickness.? The visually estimated ejection fraction is between 55-60%.? Spectral Doppler is indicative of a pseudonormal filling pattern.? E/E prime ratio is >15, consistent with elevated filling pressures.? Evidence suggests grade II (moderate) diastolic dysfunction.? The images are off axis and basal anterolateral hypokinesis cannot be entirely ruled out Discharge Plan Discharge Anticipated Discharge Date/Time: 01/18/23 16:19 Patient Disposition: Xfer Acute Care Hospital Discharge Diagnosis: NSTEMI Referrals: Devin Osullivan MD [Physician] - 1 Week Miguelangel Beckham MD [Primary Care Provider] - 3 days Discharge Medications: New amlodipine 5 mg Tablet 5 mg PO DAILY Qty: 1 0RF Protocol: Hold for SBP< HOLD for SBP < : 90 Nitro-Bid 2 % Ointment 1 inch transdermal RQ6H WHILE AWAKE Qty: 1 0RF heparin (porcine) 5,000 unit/mL Solution 3,400 unit IVPUSH PROTOCOL BOLUS PRN (Reason: 40 Unit/Kg - Heparin Protocol) Qty: 1 0RF heparin (porcine) 5,000 unit/mL Solution 6,700 unit IVPUSH PROTOCOL BOLUS PRN (Reason: 80 Unit/Kg - Heparin Protocol) Qty: 1 0RF heparin(porcine) in 0.45% NaCl 25,000 unit/250 mL Parenteral Solution 25,000 unit continuous IV infusion .Q0M Qty: 1 0RF insulin lispro [Humalog U-100 Insulin] 100 unit/mL Solution See Protocol subcut QIDACHS Qty: 1 0RF Protocol: Insulin Correction Scale Less than or equal to 110 ---- Give (units): 0 111 to 150 Give (units): 0 151 to 200 Give (units): 2 201 to 250 Give (units): 4 251 to 300 Give (units): 6 301 to 350 Give (units): 8 Greater than 350 Give (units): 10 Call MD if Blood Glucose > : 350 morphine 2 mg/mL Syringe 2 mg IVPUSH Q4H PRN (Reason: severe pain) Qty: 1 0RF Protocol: Hold for RR < HOLD and contact provider for RR < (bpm): 12 Rx Instructions: Partial Fill upon patient request. Continued timolol maleate 0.5 % drops 1 drp ophthalmic (eye) QAM furosemide 40 mg tablet 40 mg PO DAILY losartan 100 mg tablet 100 mg PO DAILY latanoprost 0.005 % drops 1 drp ophthalmic (eye) BEDTIME sertraline 25 mg tablet 25 mg PO DAILY allopurinol 300 mg tablet 150 mg PO DAILY aspirin 81 mg tablet,delayed release (DR/EC) 81 mg PO DAILY metoprolol tartrate 50 mg tablet 25 mg PO TID Tresiba FlexTouch U-100 100 unit/mL (3 mL) insulin pen 17 unit subcut BID cholecalciferol (vitamin D3) 50 mcg (2,000 unit) capsule 50 mcg PO DAILY atorvastatin 80 mg tablet 80 mg PO DAILY Discharge Orders: Discharge Order (Routine); Ordered 01/18/23 Ordered By: Stef Longo Diet: Diabetic diet Activity on Discharge: Rest with bed elevated Stand Alone Forms: Patient Portal Discharge page Care Plan Goals: cardiac health Health Concerns: NSTEMI Plan of Treatment: transfer to [facility] for cardiac catheterization Assessment: See Discharge Summary. Patient Instructions: Abdominal Pain (ED), Epigastric Pain (ED)
[2023-01-18 17:01] LABS: COVID-19 Test Negative (Negative); IDNOW Serial# 08D9AD1C
--- NOTE | 2023-01-18 18:51 | PC.NURSE ---
[facility] here for transport, patient seen leaving at this time on stretcher with all personal belongings. Daughter aware and at bedside. Patient being transferred to [facility] for higher level of care. Gave report to receiving RN Nikole at this time. Room 9 on M7, Dr. Dos Santos accepting. [phone].
[2023-01-18 19:05] LABS: Troponin-I High Sensitivity > 3600.0 ng/L (<3.5-35.0)
== END 2023-01-18 18:50 | disposition short-term general hospital (02) | DRG 280 ==
LOC: HO.ED 12:11 → HO.EDOVER 15:39 → HO.IMC 15:42
PROVIDERS: Internal Medicine; Admitting Provider Student in an Organized Health Care Education/Training Program; Emergency Provider Emergency Medicine; PCP Internal Medicine; Visit Provider Family Medicine
DX: I21.4 Non-ST elevation (NSTEMI) myocardial infarction (principal); N18.6 End stage renal disease; I12.0 Hypertensive chronic kidney disease with stage 5 chronic kidney disease or end stage renal disease; Z66 Do not resuscitate; Z95.1 Presence of aortocoronary bypass graft; E78.5 Hyperlipidemia, unspecified; I34.0 Nonrheumatic mitral (valve) insufficiency; I25.10 Atherosclerotic heart disease of native coronary artery without angina pectoris; E11.22 Type 2 diabetes mellitus with diabetic chronic kidney disease; E87.6 Hypokalemia; Z20.822 Contact with and (suspected) exposure to COVID-19; Z87.891 Personal history of nicotine dependence; Z79.4 Long term (current) use of insulin; Z79.82 Long term (current) use of aspirin; Z79.899 Other long term (current) drug therapy
CPT/HCPCS: 36415; 71046; 76700; 78451; 80048; 80053; 81001; 82947; 83690; 83735; 84484; 85025; 85027; 85610; 85730; 87635; 93005; 93306; 99285; A9500; J1643; J2270; J2405; Q9957

== ENCOUNTER → 2023-02-22 10:22 | Outpatient (BNVA) | payer OTHER, SELFPAY | PROVIDERS: PCP Internal Medicine; Visit Provider Surgery Vascular Surgery ==

== ENCOUNTER 2023-04-12 08:19 | Outpatient (AMB) | payer OTHER, SELFPAY ==
[2023-04-12 08:27] VITALS: BP 186/79; PULSE 66; BMI 27.6
--- NOTE | 2023-04-12 08:27 | MHC.OFFVIS ---
Intake Vital Signs 04/12/23 08:27 Height 5 ft 7 in Weight 175 lb 14.862 oz BMI 27.6 BP 186/79 H Blood Pressure Location Rt brachial Position Sitting Pulse 66 Intake Visit Reasons: New pt Persistent Heartburn Intake Note: Mark presents in office as a New.pt Persistent Heartburn. 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 Patient was trying to get in to [facility] to see GI specialist that he saw during admission and unable to get in till August. Patient recently started with severe epigastric discomfort and wanted to be seen sooner. Patient was admitted to [facility] [place] in the beginning of January. While having resting nuclear images patient developed chest pain and was transferred to [facility]. At [facility] patient underwent two cardiac catheterization with PCI to RCA. Subsequently patient went to acute renal failure and end up with dialysis. Patient continues to be on dialysis Mondays, Wednesdays and Fridays. Patient had severe epigastric discomfort and esophageal spasm when hospitalized and underwent upper endoscopy that showed duodenitis and gastritis. Patient was placed on sucralfate 4 times a day and omeprazole. Currently patient is taking pantoprazole daily and sucralfate 3 times a day with meals. Patient was doing well after starting dialysis, however past weekend patient began to develop epigastric pain and discomfort. Patient denies any chest pain, shortness of breath with or without exertion. Denies any chest pressure, presyncope or syncope. Patient woke up in the middle of the night with severe epigastric spasm and dyspepsia. Patient reports that he feels like when he eats food he feels full very quickly. Patient denies dysphagia or odynophagia. Patient is not on any particular diet. History of pancreatitis in the past. Not well controlled diabetes. Last A1c recorded at [facility] was on March 16 in the was 9.3%. Patient denies any nausea or vomiting. Reports that he is moving his bowels well without any issues. Patient denies melena, hematochezia, unintentional weight loss or ribbon like stools. Patient reports to have good appetite. Denies any chest pain, chest pressure, presyncope, syncope, denies any SOB with or without exertion. [facility], [facility] Surgical History History of tonsillectomy Social History Household Members: Spouse Housing: House Do you presently have visiting nurse or other home services: No Alcohol intake: never Patient Tobacco Use Status: Former Tobacco user Cigarette Packs Per Day: 1 Years Smoked: 8 e-Cigarette/Vaping Use: Never Used Second Hand Smoke Exposure: No Advance Directives Date on File: 01/17/23 service: No Current occupational status: retired Cognitive needs: No Hearing needs: No Vision needs: No Review of Systems Const Denies weight gain and Denies weight loss ENT Reports no additional complaints, Denies dysphagia and Denies odynophagia Card Reports no additional complaints Resp Reports no additional complaints GI Reports abdominal pain (Epigastric), Denies belching, Denies melena, Reports bloating, Denies change in bowel habits, Denies dysphagia, Denies excessive flatus, Denies dyspepsia, Reports heartburn, Denies diarrhea, Denies loose stools, Denies nausea, Denies odynophagia and Denies vomiting Reports no additional complaints Musc Reports no additional complaints Neuro Reports no additional complaints Psych Reports no additional complaints Endo Reports no additional complaints Physical Exam Vital Signs: Last Vital Signs Pulse 66 04/12/23 08:27 BP 186/79 H 04/12/23 08:27 BMI result Body Mass Index 27.6 Const General: healthy appearing, no acute distress and well developed Nutritional Appearance: well nourished Orientation/consciousness: patient oriented x3 HEENT Head: Yes normal to inspection, Yes normocephalic and Yes atraumatic Face and sinus: Yes normal facial exam Mouth: Normal oral and palatal mucosa present Throat: Yes posterior oropharynx normal, Yes tonsils normal and Yes uvula midline Eyes General: appearance normal, both eyes and all related structures Neck Neck: Yes normal visual inspection, Yes full ROM and Yes trachea midline Thyroid: Thyroid normal Chest Other: Dialysis port to right upper chest Resp Effort & Inspection: normal respiratory effort, able to speak in complete sentences, no tracheal deviation and symmetric chest movement Auscultation: clear to auscultation bilaterally Cardio Rate: regular rate Heart sounds: S1 normal heart sound present and S2 normal heart sound present GI Inspection: Yes normal to inspection and No distended Palpation (GI): Soft to palpation, not firm, nontender and No hepatosplenomegaly present Auscultation: normal bowel sounds General: Yes no CVA tenderness Back/Spine/Pelvis Back: no CVA tenderness Skin General skin exam: elasticity normal, turgor normal and dry skin Neuro General: patient oriented x3 Psych Appearance: grossly normal Mental Status: mental status grossly normal Speech and movement: Normal speech and movement present Affect: normal affect Assessment & Plan Assessment & Plan (1) Abdominal discomfort: Code(s): R10.9 - Unspecified abdominal pain Plan: Patient reports epigastric pain and upper abdominal cramping. Will change his treatment to lansoprazole in the morning and sucralfate twice a day. Discussed with patient going for gastric emptying testing. Patient might have gastroparesis. Diabetes not very well controlled. Should probably follow up with endocrinology. (2) Epigastric pain: Code(s): R10.13 - Epigastric pain Plan: Epigastric pain not necessarily postprandially. Changing treatment as mentioned above. Will order lipase, rule out pancreatic insufficiency (3) GERD (gastroesophageal reflux disease): Code(s): K21.9 - Gastro-esophageal reflux disease without esophagitis Qualifiers: Esophagitis presence: esophagitis presence not specified Qualified Code(s): K21.9 - Gastro-esophageal reflux disease without esophagitis Plan: Will change treatment to lansoprazole and sucralfate twice a day. Discussed with patient avoiding dietary triggers and late night snacking. She eating smaller meals and more often. Will rule out gastroparesis, pancreatic insufficiency. In the meantime patient can start taking Creon with meals up to 4 times a day. (4) Postprandial abdominal bloating: Code(s): R14.0 - Abdominal distension (gaseous) Plan: Postprandial abdominal bloating. Discussed with patient avoiding eating carbs and sugars. Will order lipase, liver profile, transglutaminase, RAST allergen, vitamin B12, folate, vitamin B3 and vitamin-D levels. I will see patient in 3 weeks, sooner on as needed basis. Patient is agreeable to this plan and verbalizes understanding of instructions. He was given the opportunity to ask questions and all questions answered. Thank you for allowing me to participate in his care Orders: Orders Pancreatic Elastase-1 Today R10.9 - Unspecified abdominal pain Lipase Today R10.9 - Unspecified abdominal pain Liver Panel Today R10.9 - Unspecified abdominal pain Transglutaminase IgA Today R10.9 - Unspecified abdominal pain Transglutaminase Ab IgG Today R10.9 - Unspecified abdominal pain NM gastric emptying study Today K21.9 - Gastro-esophageal reflux disease without esophagitis Rast Allergen Today K21.9 - Gastro-esophageal reflux disease without esophagitis Vitamin A Today K86.89 - Other specified diseases of pancreas Vitamin B12 and Folate Today R19.7 - Diarrhea, unspecified Vitamin B3 (Niacin) Today K86.89 - Other specified diseases of pancreas Vitamin D 25-OH (D2 and D3) Today E55.9 - Vitamin D deficiency, unspecified Medications: New ykgbrl-scjakcxi-hkkylzd 24,000-76,000 -120,000 unit (Creon) administer with meals and/or snacks 1 cap PO QID 120 caps 2RF K58.9 - Irritable bowel syndrome without diarrhea lansoprazole 30 mg PO DAILY 30 caps 3RF K21.9 - Gastro-esophageal reflux disease without esophagitis Changed From sucralfate 1 g PO QID To sucralfate 1 g PO BID 60 tabs 3RF Coding Level of Care Code New Pt Level 5 (28918) Diagnoses Abdominal discomfort R10.9 Epigastric pain R10.13 GERD (gastroesophageal reflux disease) K21.9 Esophagitis presence: esophagitis presence not specified Postprandial abdominal bloating R14.0 Time Spent (min) 55 Comment 35 minutes spent with patient and additional 20 minutes spent reviewing his records
== END 2023-04-12 09:07 | disposition home or self-care (01) ==
PROVIDERS: PCP Internal Medicine; Visit Provider Nurse Practitioner Family
DX: R10.9 Unspecified abdominal pain (principal); R10.13 Epigastric pain; K21.9 Gastro-esophageal reflux disease without esophagitis; R14.0 Abdominal distension (gaseous)
CPT/HCPCS: 99205

== ENCOUNTER → 2023-04-12 08:19 | Outpatient (BNVA) | payer OTHER, SELFPAY | PROVIDERS: PCP Internal Medicine; Visit Provider Nurse Practitioner Family ==

== ENCOUNTER 2023-06-11 17:33 | Inpatient (IN) | payer OTHER, SELFPAY ==
--- NOTE | ~2023-06-11 | XR_ITS ---
EXAMINATION: XR ABDOMEN KUB CLINICAL INDICATION: Constipation COMPARISON: CT abdomen from 06/12/2020 TECHNIQUE: AP view of the abdomen. FINDINGS: The bowel gas pattern is normal with no evidence of ileus or obstruction. No unusual soft tissue calcifications are noted. The bones are unremarkable. XR/XR KUB IMPRESSION: Unremarkable examination.
--- NOTE | ~2023-06-11 | XR_ITS ---
EXAMINATION: XR CHEST CLINICAL INFORMATION: Fever. Dyspnea. COMPARISON: 01/17/2023. TECHNIQUE: Upright portable AP view of the chest was obtained. XR/XR chest 1V FINDINGS/IMPRESSION: The study is limited by portable technique and suboptimal inspiration. There is no gross acute radiographic finding. The right hemidiaphragm is mildly elevated, unchanged. Small right basilar linear density suggests atelectasis. No acute infiltrate, effusion, pneumothorax is seen. The heart appears normal in size. The aorta is atherosclerotic. The tip of a right internal jugular tunneled dialysis catheter projects over the junction of the superior vena cava and the right atrium. There are mild degenerative changes of the spine and left shoulder.
--- NOTE | ~2023-06-11 | CT_ITS ---
EXAMINATION: CT ABDOMEN AND PELVIS WITHOUT CONTRAST CLINICAL INFORMATION: Lower abdominal pain. Hematuria. COMPARISON: Abdominal ultrasound January 17, 2023 TECHNIQUE: Multidetector volumetric imaging was performed from the superior aspect of the liver through the pubic symphysis. Sagittal and coronal reformatted images were obtained on the technologist's workstation. This CT examination was performed using dose optimization techniques as appropriate, variously including the following: *Automated exposure control *Adjustment of mA and/or kV according to patient size (this includes techniques or standardized protocols for targeted exams where dose is matched to indication/reason for exam; i.e. extremities or head) *Use of iterative reconstruction technique DLP: 590 mGy-cm FINDINGS: Visualized lung bases demonstrate mild dependent atelectasis. 3 mm pulmonary nodule right middle lobe (image [id number], series 4). The liver is normal in size. The gallbladder is normal in appearance. The pancreas is unremarkable. The spleen is mildly enlarged measuring 14 cm in maximum craniocaudal dimension. Both adrenal glands demonstrate mild diffuse hypertrophy. Symmetrically sized kidneys. No renal calculi or hydronephrosis of either kidney. There is mild bilateral perinephric stranding which is nonspecific. Normal caliber loops of small and large bowel. Normal appendix. Mild to moderate colonic diverticulosis without CT evidence to suggest active diverticulitis. Normal caliber abdominal aorta demonstrating moderate atherosclerotic disease. No retroperitoneal lymphadenopathy. The bladder is relatively decompressed and therefore not optimally characterized, however, there does appear to be mild diffuse bladder wall thickening. The prostate gland is significantly enlarged measuring 6.9 cm in maximum transverse dimension. Fat-containing inguinal hernias are noted bilaterally. There is no gross free pelvic fluid. No inguinal lymphadenopathy. Moderate diffuse degenerative changes of the spine with severe degenerative changes of the L3/4 level with prominent endplate erosive changes. CT/CT abdomen pelvis wo IV con IMPRESSION: 1. No renal calculi or hydronephrosis of either kidney. 2. Mild to moderate colonic diverticulosis without CT evidence to suggest active diverticulitis. 3. Mild splenomegaly. 4. Significantly enlarged prostate gland. 5. The bladder is relatively decompressed and therefore not optimally characterized, however, there does appear to be mild diffuse bladder wall thickening, possibly from bladder outlet obstruction. 6. 3 mm right middle lobe pulmonary nodule. Fleischner guidelines were followed.
[2023-06-11 17:36] VITALS: BP 101/65; PULSE 75; RESP 18; TEMP 38.3; O2SAT 98; BMI 28.9
--- NOTE | 2023-06-11 17:38 | ED_ITS ---
HPI - General Adult General Chief complaint: Urogenital-Male Stated complaint: ?sepsis Time Seen by Provider: 06/11/23 18:14 Source: patient Mode of arrival: ambulatory Limitations: no limitations History of Present Illness HPI narrative: History of hypertension hyperlipidemia end-stage renal disease on dialysis since 03/11 M/W/F been having dysuria frequency fever and chills since yesterday was seen at Urgent Care diagnosied as UTI . Patient otherwise feels normal on arrival patient temperature was 100.9 degrees no nausea no vomiting does have mild right flank pain does not get infections very often no hematuria Related Data Home Medications Medication Instructions Recorded Confirmed allopurinol 300 mg tablet 150 mg PO DAILY 02/10/22 01/17/23 aspirin 81 mg tablet,delayed 81 mg PO DAILY 02/10/22 01/17/23 release atorvastatin 80 mg tablet 80 mg PO DAILY 02/10/22 01/17/23 cholecalciferol (vitamin D3) 50 50 mcg PO DAILY 02/10/22 01/17/23 mcg (2,000 unit) capsule insulin degludec 100 unit/mL (3 17 unit subcut BID 02/10/22 01/17/23 mL) subcutaneous pen (Tresiba FlexTouch U-100 insulin) metoprolol tartrate 50 mg tablet 25 mg PO TID 02/10/22 01/17/23 furosemide 40 mg tablet 40 mg PO DAILY 01/17/23 01/17/23 latanoprost 0.005 % eye drops 1 drp ophthalmic (eye) BEDTIME 01/17/23 01/17/23 losartan 100 mg tablet 100 mg PO DAILY 01/17/23 01/17/23 sertraline 25 mg tablet 25 mg PO DAILY 01/17/23 01/17/23 timolol maleate 0.5 % eye drops 1 drp ophthalmic (eye) QAM 01/17/23 01/17/23 amlodipine 10 mg tablet 10 mg PO DAILY 02/22/23 clopidogrel 75 mg tablet 75 mg PO DAILY 02/22/23 metoprolol succinate 100 mg 100 mg PO DAILY 02/22/23 tablet,extended release 24 hr torsemide 20 mg tablet 20 mg PO BID 02/22/23 Previous Rx's Medication Instructions Recorded amlodipine 5 mg tablet 5 mg PO DAILY #1 tab 01/18/23 heparin (porcine) 25,000 unit/250 25,000 unit (250 mL) continuous IV 01/18/23 mL in 0.45 % sodium chloride IV infusion .Q0M #1 mL soln heparin (porcine) 5,000 unit/mL 3,400 unit (0.68 mL) IVPUSH 01/18/23 injection solution PROTOCOL BOLUS PRN 40 Unit/Kg - Heparin Protocol #1 mL heparin (porcine) 5,000 unit/mL 6,700 unit (1.34 mL) IVPUSH 01/18/23 injection solution PROTOCOL BOLUS PRN 80 Unit/Kg - Heparin Protocol #1 mL insulin lispro 100 unit/mL See Protocol subcut QIDACHS #1 mL 01/18/23 subcutaneous solution (Humalog U-100 Insulin) morphine 2 mg/mL intravenous 2 mg IVPUSH Q4H PRN severe pain #1 01/18/23 syringe mL nitroglycerin 2 % transdermal 1 inch transdermal RQ6H WHILE 01/18/23 ointment (Nitro-Bid) AWAKE #1 g fluticasone propionate 50 1 spray intranasal Q12H 30 days 03/04/23 mcg/actuation nasal #16 grams spray,suspension (Flonase Allergy Relief) lansoprazole 30 mg capsule,delayed 30 mg PO DAILY #30 caps 04/12/23 release gbobyr-hlpzampc-bebfbet 1 cap PO QID #120 caps 04/12/23 24,000-76,000-120,000 unit capsule,delayed rel (Creon) sucralfate 1 gram tablet 1 g PO BID #60 tabs 04/12/23 Allergies Allergy/AdvReac Type Severity Reaction Status Date / Time liraglutide [From Victoza] Allergy Intermediate Hives Verified 06/11/23 17:44 Seasonal Allergies AdvReac Intermediate Itchy Eyes Verified 06/11/23 17:44 demoral Allergy Intermediate Hives Uncoded 04/12/23 08:29 Review of Systems 2 Review of Systems: Yes all other systems are reviewed and are negative PMFSH Past Medical History Surgical History History of tonsillectomy Social History Social History Household Members: Spouse Housing: House Do you presently have visiting nurse or other home services: No Alcohol intake: never Patient Tobacco Use Status: Former Tobacco user Cigarette Packs Per Day: 1 Years Smoked: 8 e-Cigarette/Vaping Use: Never Used Second Hand Smoke Exposure: No Use of substances other than those prescribed or required for medical reasons: No Currently Displaying Signs/Symptoms of Drug Intoxication Withdrawal: No Have you been hit, kicked, punched, or otherwise hurt by someone within the past year? If so, by whom?: No Do you feel safe in your current relationship?: Yes Is there a partner from a previous relationship who is making you feel unsafe now?: No Are you made to feel afraid or neglected: No Advance Directives: Yes Advance Directives on File: Yes Advance Directives Date on File: 01/17/23 Do you have thoughts of harming others: None Do you have a plan to hurt others: No Plan Recently lost weight without trying: No Nutrition Risks: No Nutritional Risk service: No Current occupational status: retired Cognitive needs: No Hearing needs: No Vision needs: No Physical Exam ED Vital Signs: Vital Signs - 24 hr 06/11/23 17:36 06/11/23 18:01 06/11/23 19:09 Temperature 100.9 F H 100.8 F H 102.0 F H Pulse Rate 75 74 73 Respiratory Rate 18 13 20 Blood Pressure 101/65 161/71 H 146/62 H Pulse Oximetry 98 97 97 Oxygen Delivery Method Room Air Room Air Room Air BMI result Body Mass Index 28.9 Appearance: Alert. Oriented X3. No acute distress. ENT: Pharynx normal. Oral Mucosa moist Neck: Normal inspection. Neck supple. CVS: Normal heart rate and rhythm. Pulses normal. Respiratory: No respiratory distress. Equal air entry bilateral, no wheezing/rales/rhonchi Abdomen: Soft and nontender. Bowel sounds are present, no mass palpable, mild right CVA tenderness Skin: Skin warm and dry. Normal skin color. Normal skin turgor. Extremities: No lower extremity edema. No calf tenderness Neuro: Oriented X 3. No motor deficit. Course Course Course Narrative: This is an RME: Additional HPI, ROS, PE not included below will be deferred to primary provider. This is a 78-fbqd-bqi-male, with a hx of CAD, MS, Quintiple bypass 07/20/18, Cardiology is Dr. Tonio Gardiner [facility], DM2, HTN, HLD, CRF (dialysis M,W,F) Nephrology Dr Escamilla, Anxiety, Spinal stenosis w/ LLE weakness & unsteady gait presenting to the emergency department from urgent care due to ?sepsis. Expect was called in by [facility] in [place] with dysuria,BL flank pain, fever, myalgias, tachycardia, concern for urosepsis. Has fistula on the left arm. Febrile at 100.9 orally. Plan: Labs, lactic, blood cx, ekg Medications Administered Generic Name Dose Route Start Last Admin Trade Name Freq PRN Reason Stop Dose Admin Acetaminophen 650 mg 06/11/23 19:12 06/11/23 23:40 Acetaminophen 325 Mg Tablet PO 650 mg Q6H PRN Administration Pain, Mild (Pain Scale 1-3) Heparin Sodium (Porcine) 5,000 unit 06/11/23 20:00 06/11/23 20:34 Heparin Sodium,Porcine 5,000 Unit/Ml Vial SUBCUT 5,000 unit Q12H FRANCY Administration Insulin Human Lispro 0 unit 06/11/23 21:00 06/11/23 21:20 Insulin Lispro 100 Unit/Ml 3 Ml Vial SUBCUT Not Given QIDACHS [facility] Protocol Sodium Chloride 3 ml 06/12/23 00:00 06/11/23 21:47 0.9 % Sodium Chloride Flush 3 Ml Syringe IVFLUSH 3 ml QSHIFT FRANCY Administration Discontinued Medications Generic Name Dose Route Start Last Admin Trade Name Freq PRN Reason Stop Dose Admin Acetaminophen 650 mg 06/11/23 18:37 06/11/23 19:42 Acetaminophen 325 Mg Tablet PO 06/11/23 18:38 650 mg ONCE ONE Administration Sodium Chloride 500 mls @ 250 mls/hr 06/11/23 18:45 06/11/23 21:49 Ns IVCONT 06/11/23 20:44 Infused .Q2H FRANCY Infusion Ceftriaxone Sodium 1 gm/ 50 mls @ 100 mls/hr 06/11/23 18:35 06/11/23 20:22 Sodium Chloride IV 06/11/23 19:04 Infused ONCE ONE Infusion Medical Decision Making Medical Decision Making [facility] Narrative: Patient with UTI with sepsis not in septic shock with history of end-stage renal disease admit patient for IV antibiotics. Differential Diagnosis Differential Diagnoses: The differential diagnosis associated with the presentation includes UTI/sepsis/pyelonephritis Admission/Observation Consideration of admission/observation: Escalation of care including admission/observation considered Consult Healthcare Provider Management of the patient was discussed with: Hospitalist Lab Data MDM Lab Attestation statement: I reviewed the patient's lab results. 06/11/23 18:16 06/11/23 18:16 Labs: Lab Results 06/11/23 06/11/23 Range/Units 18:16 18:18 WBC 16.6 H (4.8-10.8) X10*3/uL RBC 5.07 (4.60-5.80) X10*6/uL Hgb 14.2 (14.0-18.0) g/dl Hct 41.4 L (42.0-52.0) % MCV 81.7 (80.0-98.0) fL MCH 28.0 (27.0-33.0) pg MCHC 34.3 (31.0-36.0) g/dl RDW 13.1 (11.0-16.0) % Plt Count 204 (160-400) X10*3/uL MPV 10.1 (9.4-12.4) fL Immature Gran % (Auto) 0.5 H (0.0-0.4) % Neut % (Auto) 80.1 H (45-73) % Lymph % (Auto) 11.0 L (20-40) % [place] % (Auto) 7.8 (2-11) % Eos % (Auto) 0.2 (0-4) % Baso % (Auto) 0.4 (0-2) % Lymph # (Auto) 1.8 (1.2-4.9) X10*3/uL [place] # (Auto) 1.3 H (0.1-1.2) X10*3/uL Eos # (Auto) 0.0 (0.0-0.4) X10*3/uL Baso # (Auto) 0.1 (0.0-0.2) X10*3/uL Abs Immat Gran (auto) 0.08 H (0.00-0.03) X10*3/uL Absolute Neuts (auto) 13.3 H (2.0-8.3) x10*3/uL Absolute Nucleated RBC 0.000 (0.0-0.012) X10*3/uL Nucleated RBC % (auto) 0.0 (0.0-0.2) /100WBC Sodium 135 (135-145) mmol/L Potassium 4.7 D (3.3-5.1) mmol/L Chloride 100 (96-108) mmol/L Carbon Dioxide 22 (22-29) mmol/L Anion Gap 18 (12-20) BUN 69 H (9-16) mg/dL Creatinine 5.22 H* (0.5-1.4) mg/dL Estim Creat Clear Calc 13.6 Estimated GFR 11 Random Glucose 120 H (60-115) mg/dL Lactic Acid 1.1 (0.5-2.0) mmol/L Calcium 9.7 D (8.4-10.2) mg/dL Magnesium 2.3 (1.6-2.6) mg/dL Total Bilirubin 0.7 (0.0-1.0) mg/dL Direct Bilirubin 0.1 (0.0-0.5) mg/dL AST 34 (5-37) U/L ALT 28 (0-40) U/L Alkaline Phosphatase 210 H (39-117) U/L Total Protein 7.8 (6.5-8.0) g/dL Albumin 3.9 (3.5-5.0) g/dL Lipase 43 (8-78) U/L Influenza Type A (PCR) NEGATIVE (Negative) Influenza Type B (PCR) NEGATIVE (Negative) RSV RNA Qual (PCR) NEGATIVE (Negative) SARS-CoV-2 RNA (RT-PCR) NEGATIVE (Negative) Independent Interpretation I performed an independent interpretation of an: EKG Interpretation: Normal sinus rhythm heart rate 76 beats per minute prevent block LVH no acute ST-T no acute ischemia Discharge Plan Discharge Clinical Impression: UTI (urinary tract infection), CKD (chronic kidney disease), NSTEMI (non-ST elevated myocardial infarction) Patient Disposition: Admitted As Inpatient Interventions: Admission Worksheet (ED) Last Done: 06/11/23 20:17
--- NOTE | 2023-06-11 17:42 | ECG_ITS ---
Test Reason : TACHYCARDIA Blood Pressure : / mmHG Vent. Rate : 076 BPM Atrial Rate : 076 BPM P-R Int : 172 ms QRS Dur : 094 ms QT Int : 374 ms P-R-T Axes : 040 -53 116 degrees QTc Int : 420 ms Sinus rhythm with frequent , and consecutive Premature ventricular complexes Left anterior fascicular block Minimal voltage criteria for LVH, may be normal variant ( [place] product ) Anterior infarct , age undetermined ST & T wave abnormality, consider lateral ischemia Abnormal ECG When compared with ECG of 18-JAN-2023 15:53, Premature ventricular complexes are now Present ST elevation now present in Anterior leads QT has shortened Referred By: Jihan Leiva Electronically Signed By:LEONILA QUIROZ
[2023-06-11 18:01] VITALS: BP 161/71; PULSE 74; RESP 13; TEMP 38.2; O2SAT 97
[2023-06-11 18:24] LABS: MANUAL DIFF FLAG NO
[2023-06-11 18:39] LABS: Basophils Absolute Auto 0.1 X10*3/uL (0.0-0.2); Basophils Percent Auto 0.4 % (0-2); Eosinophils Percent Auto 0.2 % (0-4); Hematocrit 41.4 % (42.0-52.0); Hemoglobin 14.2 g/dl (14.0-18.0); Imm Gran Abs Auto 0.08 X10*3/uL (0.00-0.03); Imm Gran Pct Auto 0.5 % (0.0-0.4); Lymphocytes Absolute Auto 1.8 X10*3/uL (1.2-4.9); Mean Corpuscular HGB Conc 34.3 g/dl (31.0-36.0); Mean Corpuscular Volume 81.7 fL (80.0-98.0); Mean Platelet Volume 10.1 fL (9.4-12.4); Monocytes Absolute Auto 1.3 X10*3/uL (0.1-1.2); Monocytes Percent Auto 7.8 % (2-11); Neutrophils Absolute Auto 13.3 x10*3/uL (2.0-8.3); Neutrophils Percent Auto 80.1 % (45-73); Platelet Count 204 X10*3/uL (160-400); Red Blood Count 5.07 X10*6/uL (4.60-5.80); Red Cell Distribution Width 13.1 % (11.0-16.0); White Blood Count 16.6 X10*3/uL (4.8-10.8)
[2023-06-11 18:46] LABS: Lactic Acid 1.1 mmol/L (0.5-2.0)
[2023-06-11 18:55] LABS: Alanine Aminotransferase 28 U/L (0-40); Albumin Level 3.9 g/dL (3.5-5.0); Alkaline Phosphatase 210 U/L (39-117); Anion Gap 18 (12-20); Aspartate Amino Transferase 34 U/L (5-37); Bilirubin Direct 0.1 mg/dL (0.0-0.5); Bilirubin Total 0.7 mg/dL (0.0-1.0); Blood Urea Nitrogen 69 mg/dL (9-16); Calcium 9.7 mg/dL (8.4-10.2); Carbon Dioxide 22 mmol/L (22-29); Chloride 100 mmol/L (96-108); Creatinine Clr Calc Pharmacy 13.6; Estimated Glomerular Filt Rate 11; Glucose Random 120 mg/dL (60-115); Lipase 43 U/L (8-78); Magnesium 2.3 mg/dL (1.6-2.6); Potassium 4.7 mmol/L (3.3-5.1); Sodium 135 mmol/L (135-145); Total Protein 7.8 g/dL (6.5-8.0)
[2023-06-11 19:04] LABS: Influenza A PCR NEGATIVE (Negative); Influenza B PCR NEGATIVE (Negative); Resp Syncy Virus RNA Qual PCR NEGATIVE (Negative); SARS COV2 PCR INHOUSE NEGATIVE (Negative)
[2023-06-11 19:09] VITALS: BP 146/62; PULSE 73; RESP 20; TEMP 38.9; O2SAT 97
--- NOTE | 2023-06-11 19:12 | MHC.EDTECH ---
This tech assumed care of patient at 1900, vitals and rounds completed, temp is elevated at 102.0 RN Danilo made aware. Second set of blood cultures obtained and urine was collected and sent to lab. Family at bedside and call mcclelland within reach
[2023-06-11 19:36] LABS: Appearance Urine Turbid; Color Urine Yellow; Glucose Urine UA Negative (Negative); Leukocyte Esterase Urine Large (3+) (Negative); Nitrite Urine Negative (Negative); Specific Gravity - Urine 1.015 (1.005-1.025); UMIC TRIGGER UACC YES; Urine Blood Moderate (2+) (Negative); Urine Ketones Negative (Negative); Urine Protein 300 (3+) mg/dL (Neg-Trace)
[2023-06-11] MEDS: Acetaminophen 325 MG TABLET 650 MG PO ×2 (19:42→23:40)
[2023-06-11] MEDS: cefTRIAXone sodium 1 GM in 0.9 % Sodium Chloride 50 ML IV (19:43)
[2023-06-11] MEDS: 0.9 % Sodium Chloride 500 ML 250 ML IVCONT (19:43)
[2023-06-11 19:50] LABS: Bacteria Urine 1+ (None Seen); Squamous Epithelial Cell Urine 0-2 /HPF (0-2); UACC Culture Trigger YES; WBC Urine >50 /HPF (0-5)
--- NOTE | 2023-06-11 19:58 | PM.IMHP ---
History of Present Illness Date of Service: 06/11/23 Attending physician on admission: Ben Bah Chief Complaint: Dysuria, increased urgency Pt is a 72-year-old male with a PMH significant for?CAD s/p quintuple coronary artery bypass grafting in 2017 and stenting in 2022, HTN, HLD, insulin-dependent diabetes type 2, ESRD on hemodialysis M/W/F, spinal stenosis with lower extremity weakness and unsteady gait who presents to the ED with?dysuria and increased urgency since last night. Patient states he went to dialysis yesterday and felt great until about 2-3 hours afterwards. Reports suddenly having a ?great urge to go? but found that he could produced nothing more than a very weak stream. Patient reports he normally still produces significant amounts of urine. He also notes he experienced fever, chills, nausea but no vomiting, and had significant pain with urination. Daughter is at bedside and adds that patient has been more confused today and incontinent of urine. Denies chest pain/pressure, palpitations. No shortness of breath. Denies abdominal pain. Of note, patient was last admitted to the hospital on 01/17/2023 through 01/18/2023 for worsening epigastric pain, nausea, and dry heaving. Hospital course was complicated by NSTEMI with patient with chest pain and troponins >3600. Patient was transferred to [facility] for cardiac catheterization and had 2 stents placed. Patient had CKD 4 at that time but was not on hemodialysis; the contrast dye from this procedure ultimately caused patient to go on to hemo dialysis. 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 In the ED patient was febrile up to 102.0 and hypertensive up to 161/71, satting at 97% on RA. Labs were significant for leukocytosis of 16.6, BUN 69, creatinine 5.22. H&H stable. Electrolytes WNL. UA positive for UTI. CXR showed no acute cardiopulmonary process seen. EKG demonstrated a sinus rhythm with frequent and consecutive PVCs with nonspecific ST and T wave abnormalities. Pt was treated with acetaminophen, IVF, ceftriaxone. Pt will be admitted to the hospital for treatment further evaluation of sepsis in the setting of UTI. Review of Systems Review of Systems: Dysuria Increased urgency Fever, chills Confusion Nausea, no vomiting Denies chest pain/pressure, palpitations No abdominal pain Denies shortness of breath PMFSH Surgical History History of tonsillectomy Social History Household Members: Spouse Housing: House Do you presently have visiting nurse or other home services: No Alcohol intake: never Patient Tobacco Use Status: Former Tobacco user Cigarette Packs Per Day: 1 Years Smoked: 8 e-Cigarette/Vaping Use: Never Used Second Hand Smoke Exposure: No Advance Directives: Yes Advance Directives on File: Yes Advance Directives Date on File: 01/17/23 Nutrition Risks: No Nutritional Risk service: No Current occupational status: retired Cognitive needs: No Hearing needs: No Vision needs: No Meds Allergies Allergy/AdvReac Type Severity Reaction Status Date / Time liraglutide [From Victoza] Allergy Intermediate Hives Verified 06/11/23 17:44 Seasonal Allergies AdvReac Intermediate Itchy Eyes Verified 06/11/23 17:44 demoral Allergy Intermediate Hives Uncoded 04/12/23 08:29 Active Medications: Current Medications Acetaminophen (Acetaminophen 325 Mg Tablet) 650 mg PO Q6H PRN PRN Reason: Pain, Mild (Pain Scale 1-3) Acetaminophen (Acetaminophen Supp 650 Mg Supp.Rect) 650 mg [place] Q6H PRN PRN Reason: Pain, Mild (Pain Scale 1-3) Dextrose (Dextrose 50 % 25 Gm/50 Ml Syringe) 25 gm IVPUSH Q15M PRN; Protocol PRN Reason: per Hypoglycemia Standing Ord. Glucose (Glucose Gel 15 Gm Gel..Gram.) 15 gm PO Q15M PRN; Protocol PRN Reason: per Hypoglycemia Standing Ord. Heparin Sodium (Porcine) (Heparin Sodium,Porcine 5,000 Unit/Ml Vial) 5,000 unit SUBCUT Q12H PENDING SALE TO [facility] Sodium Chloride (Ns) 500 mls @ 250 mls/hr IVCONT .Q2H PENDING S[facility] TO [facility] Stop: 06/11/23 20:44 Last Admin: 06/11/23 19:43 Dose: 250 mls/hr Ceftriaxone Sodium 1 gm/ (Sodium Chloride) 50 mls @ 100 mls/hr IV Q24H [facility]END[facility] TO [facility] Insulin Human Lispro (Insulin Lispro 100 Unit/Ml 3 Ml Vial) [facility] Protocol Melatonin (Melatonin 3 Mg Tablet) 6 mg PO BEDTIME PRN PRN Reason: Insomnia Sodium Chloride (0.9 % Sodium Chloride Flush 3 Ml Syringe) [facility] Medic[facility] Medication Instructions Recorded Confirmed Last Taken Type allopurinol 300 mg tablet 150 mg PO DAILY 02/10/22 01/17/23 Unknown History aspirin 81 mg tablet,delayed 81 mg PO DAILY 02/10/22 01/17/23 Unknown History release atorvastatin 80 mg tablet 80 mg PO DAILY 02/10/22 01/17/23 Unknown History cholecalciferol (vitamin D3) 50 50 mcg PO DAILY 02/10/22 01/17/23 Unknown History mcg (2,000 unit) capsule insulin degludec 100 unit/mL (3 17 unit subcut BID 02/10/22 01/17/23 Unknown History mL) subcutaneous pen (Tresiba FlexTouch U-100 insulin) metoprolol tartrate 50 mg tablet 25 mg PO TID 02/10/22 01/17/23 Unknown History furosemide 40 mg tablet 40 mg PO DAILY 01/17/23 01/17/23 Unknown History latanoprost 0.005 % eye drops 1 drp ophthalmic (eye) BEDTIME 01/17/23 01/17/23 Unknown History losartan 100 mg tablet 100 mg PO DAILY 01/17/23 01/17/23 Unknown History sertraline 25 mg tablet 25 mg PO DAILY 01/17/23 01/17/23 Unknown History timolol maleate 0.5 % eye drops 1 drp ophthalmic (eye) QAM 01/17/23 01/17/23 Unknown History amlodipine 10 mg tablet 10 mg PO DAILY 02/22/23 Unknown History clopidogrel 75 mg tablet 75 mg PO DAILY 02/22/23 Unknown History metoprolol succinate 100 mg 100 mg PO DAILY 02/22/23 Unknown History tablet,extended release 24 hr torsemide 20 mg tablet 20 mg PO BID 02/22/23 Unknown History Physical Exam Vital Signs and Narrative: Vital Signs: Last Vital Signs Temp 102.0 F H 06/11/23 19:09 Pulse 73 06/11/23 19:09 Resp 20 06/11/23 19:09 BP 146/62 H 06/11/23 19:09 Pulse Ox 97 06/11/23 19:09 O2 Del Method Room Air 06/11/23 19:09 BMI result Body Mass Index 28.9 Constitutional: Alert, in no acute distress. Mental Status: Oriented to person, place and time. Eyes: Pupils are equal, round, and reactive to light. Ear, Nose, and Throat: Oropharynx clear, mucous membranes moist. Ears and nose without deformities. Trachea midline. Respiratory: Clear to auscultation bilaterally. No wheezing, rales, or rhonchi. Cardiovascular: S1, S2 regular. No murmurs, rubs, or gallops. Gastrointestinal: Abdomen soft, non-tender, non-distended. Normal bowel sounds. Neurologic: Cranial nerves II-XII are grossly intact bilaterally. No focal neurological deficits. Moves all extremities spontaneously. Skin: No rashes or lesions noted. Musculoskeletal: No cyanosis or clubbing. Extremities: No edema. Psychiatric: Normal mood and affect. Results Labs 06/11/23 18:16 06/11/23 18:16 Labs: Laboratory Results - last 24 hr 06/11/23 06/11/23 06/11/23 18:16 18:18 19:24 MCV 81.7 MCH 28.0 MCHC 34.3 RDW 13.1 Plt Count 204 MPV 10.1 Immature Gran % (Auto) 0.5 H Neut % (Auto) 80.1 H Lymph % (Auto) 11.0 L [place] % (Auto) 7.8 Eos % (Auto) 0.2 Baso % (Auto) 0.4 Lymph # (Auto) 1.8 [place] # (Auto) 1.3 H Eos # (Auto) 0.0 Baso # (Auto) 0.1 Abs Immat Gran (auto) 0.08 H Absolute Neuts (auto) 13.3 H Absolute Nucleated RBC 0.000 Nucleated RBC % (auto) 0.0 Anion Gap 18 Estim Creat Clear Calc 13.6 Estimated GFR 11 Random Glucose 120 H Lactic Acid 1.1 Calcium 9.7 D Magnesium 2.3 Total Bilirubin 0.7 Direct Bilirubin 0.1 AST 34 ALT 28 Alkaline Phosphatase 210 H Total Protein 7.8 Albumin 3.9 Lipase 43 Urine Color Yellow Urine Appearance Turbid Urine pH 5.0 Ur Specific [place] 1.015 Urine Protein 300 (3+) H Urine Glucose (UA) Negative Urine Ketones Negative Urine Blood Moderate (2+) H Urine Nitrite Negative Ur Leukocyte Esterase Large (3+) H Urine RBC 6-10 H Urine WBC >50 H Ur Squamous Epith Cells 0-2 Urine Bacteria 1+ Hyaline Casts 3-5 Influenza Type A (PCR) NEGATIVE Influenza Type B (PCR) NEGATIVE RSV RNA Qual (PCR) NEGATIVE SARS-CoV-2 RNA (RT-PCR) NEGATIVE Assessment and Plan (1) Sepsis: Qualifiers: Sepsis type: sepsis due to unspecified organism Sepsis acute organ dysfunction status: without acute organ dysfunction Qualified Code(s): A41.9 - Sepsis, unspecified organism Status: Acute (2) UTI (urinary tract infection): Qualifiers: Urinary tract infection type: acute cystitis Hematuria presence: without hematuria Qualified Code(s): N30.00 - Acute cystitis without hematuria Status: Acute (3) Acute metabolic encephalopathy: Status: Acute Plan Pt is a 72-year-old male with a PMH significant for?CAD s/p quintuple coronary artery bypass grafting in 2017 and stenting in 2022, HTN, HLD, insulin-dependent diabetes type 2, ESRD on hemodialysis M/W/F, spinal stenosis with lower extremity weakness and unsteady gait who presents to the ED with?dysuria and increased urgency since last night. Pt will be admitted to the hospital for treatment further evaluation of sepsis in the setting of UTI. Acute metabolic encephalopathy sepsis d/t UTI UA positive for UTI Patient meets sepsis criteria: UTI, WBCs, fever Patient's daughter reports mild confusion today Patient received IVF in the ED Will start on IV ceftriaxone, started 06/11/2023 Follow CBC Monitor mentation ESRD on hemodialysis M/W/F Creatinine seems stable at baseline Last dialyzed yesterday Electrolytes currently WNL Nephrology consultation Follow BMP CAD Continue aspirin, statin, clopidogrel HTN Continue home meds Insulin-dependent diabetes type 2 Hold degludec SSI Gout Continue allopurinol Full Code Attending:?Dr. Bah DVT Prophylaxis: Heparin Pt will require a hospitalization of at least two nights for treatment and further evaluation of?acute encephalopathy in setting of sepsis d/t UTI with IV antibiotics and close monitoring. Time Spent With Patient Time: Total time managing care of this patient today ____ minutes. Quality Stroke Does the patient have a stroke diagnosis?: No VTE Prior VTE?: No VTE Risk Level:: Medical - moderate - high VTE Device Contraindication: Treatment Not Indicated VTE Drug Contraindication: N/A - Med Ordered
[2023-06-11] MEDS: Heparin Sodium,Porcine 5,000 UNIT/ML VIAL 5000 UNIT SUBCUT (20:34)
[2023-06-11 20:58] VITALS: BP 121/59; PULSE 70; RESP 18; TEMP 37.2; O2SAT 95
[2023-06-11 20:59] VITALS: BMI 28.0
[2023-06-11 21:10] LABS: Glucose, Whole Blood 78 mg/dL (60-115)
[2023-06-11 21:20] VITALS: TEMP 37.1
[2023-06-11] MEDS: 0.9 % Sodium Chloride Flush 3 ML SYRINGE IVFLUSH (21:47)
[2023-06-12] VITALS (7 sets, daily range): BP systolic 110–144; BP diastolic 60–66; PULSE 69–81; RESP 18–20; TEMP 36.6–38.2; O2SAT 93–96
[2023-06-12] MEDS: Morphine Sulfate 2 MG/ML CARTRIDGE IVPUSH ×5 (00:43→21:39)
[2023-06-12] MEDS: ondansetron HCL 4 MG/2 ML VIAL IVPUSH ×3 (06:41→22:49)
[2023-06-12 07:45] LABS: Glucose, Whole Blood 88 mg/dL (60-115)
[2023-06-12] MEDS: Acetaminophen 325 MG TABLET 650 MG PO (08:10)
[2023-06-12] MEDS: Heparin Sodium,Porcine 5,000 UNIT/ML VIAL 5000 UNIT SUBCUT ×2 (08:11→21:49)
[2023-06-12] MEDS: 0.9 % Sodium Chloride Flush 3 ML SYRINGE IVFLUSH ×3 (08:13→21:40)
--- NOTE | 2023-06-12 08:32 | PHA.MEDREC ---
Pharmacy Consult ? Medication Reconciliation Pharmacy has completed the medication reconciliation. Spoke to patient to confirm meds. Patient states they still use nitrobid when needed.
[2023-06-12 09:07] LABS: Alanine Aminotransferase 34 U/L (0-40); Albumin Level 3.4 g/dL (3.5-5.0); Alkaline Phosphatase 191 U/L (39-117); Anion Gap 21 (12-20); Aspartate Amino Transferase 33 U/L (5-37); Bilirubin Total 0.6 mg/dL (0.0-1.0); Blood Urea Nitrogen 70 mg/dL (9-16); Calcium 9.1 mg/dL (8.4-10.2); Carbon Dioxide 20 mmol/L (22-29); Chloride 100 mmol/L (96-108); Creatinine Clr Calc Pharmacy 13.8; Estimated Glomerular Filt Rate 11; Glucose Random 87 mg/dL (60-115); Potassium 4.1 mmol/L (3.3-5.1); Sodium 137 mmol/L (135-145); Total Protein 6.5 g/dL (6.5-8.0)
--- NOTE | 2023-06-12 10:02 | MHC.CM.PN ---
PT REPORTS HE LIVES WITH HIS AND IS INDEPENDENT WITH CARE PT HAS A WALKER AND SHOWER CHAIR AND NO OTHER DME HE HAS NO HOME SERVICES HE SAYS HE HAS A HCP, COPY REQUESTED PCP: WILFRIDO SIMON PT REPORTS HE DOES NOT HAVE MEDICARE DCP: HOME NO SERVICES VIA FAMILY TRANSPORT
[2023-06-12] MEDS: Cholecalciferol (Vitamin D3) 25 MCG TABLET 50 MCG PO (10:39)
[2023-06-12] MEDS: timoloL maleate 0.5 % Oph Sol 5 ML DRBTL 1 DROP EYE-BOTH (10:39)
[2023-06-12] MEDS: Metoprolol Succinate ER 100 MG TAB.ER.24H PO (10:39)
[2023-06-12] MEDS: Dorzolamide HCl 2 % Ophth Sol 10 ML DRPBTL 1 DROP EYE-LEFT ×2 (10:39→21:43)
[2023-06-12] MEDS: Clopidogrel Bisulfate 75 MG TABLET PO (10:40)
[2023-06-12] MEDS: Sucralfate 1 GM TABLET PO ×2 (10:40→21:51)
[2023-06-12] MEDS: Furosemide 40 MG TABLET PO (10:40)
[2023-06-12] MEDS: Isosorbide Mononitrate 30 MG TAB.ER.24H PO (10:40)
[2023-06-12] MEDS: Sertraline HCL 50 MG TABLET PO (10:40)
[2023-06-12] MEDS: vancomycin/NS 2,000 MG/500 ML PLAST..BAG 250 MG IV (10:43)
[2023-06-12 11:30] LABS: Glucose, Whole Blood 112 mg/dL (60-115)
--- NOTE | 2023-06-12 11:31 | PM.CNNEP ---
History of Present Illness Reason for Consult Consult date: 06/12/23 Chief Complaint Chief complaint: Dysuria History of Present Illness Narrative: Mr. Mark Conte is a 72-year-old gentleman with past medical history of CAD s/p quintuple coronary artery bypass grafting in 2017 and stenting in 2022, HTN, HLD, insulin-dependent diabetes type 2, ESRD on hemodialysis M/W/F, spinal stenosis with lower extremity weakness who presented with dysuria which occured after HD treatment. In the ED patient was febrile up to 102.0. Review of Systems Review of Systems Dysuria Increased urgency Fever, chills Confusion Nausea, no vomiting Denies chest pain/pressure, palpitations No abdominal pain Denies shortness of breath PMFSH Surgical History Surgical History History of tonsillectomy Social History Social History Household Members: Spouse Housing: House Do you presently have visiting nurse or other home services: No Alcohol intake: never Patient Tobacco Use Status: Former Tobacco user Cigarette Packs Per Day: 1 Years Smoked: 8 e-Cigarette/Vaping Use: Never Used Second Hand Smoke Exposure: No Advance Directives Date on File: 01/17/23 service: No Current occupational status: retired Cognitive needs: No Hearing needs: No Vision needs: No Meds Allergies Allergy/AdvReac Type Severity Reaction Status Date / Time liraglutide [From Victoza] Allergy Intermediate Hives Verified 06/11/23 17:44 Seasonal Allergies AdvReac Intermediate Itchy Eyes Verified 06/11/23 17:44 demoral Allergy Intermediate Hives Uncoded 04/12/23 08:29 Active Medications: Current Medications Acetaminophen (Acetaminophen 325 Mg Tablet) 650 mg PO Q6H PRN PRN Reason: Pain, Mild (Pain Scale 1-3) Last Admin: 06/12/23 08:10 Dose: 650 mg Acetaminophen (Acetaminophen Supp 650 Mg Supp.Rect) 650 mg [place] Q6H PRN PRN Reason: Pain, Mild (Pain Scale 1-3) Amlodipine Besylate (Amlodipine Besylate 10 Mg Tablet) 10 mg PO DAILY [facility]; Protocol Aspirin (Aspirin Enteric Coated 81 Mg Tablet.Dr) 81 mg PO DAILY [facility] Atorvastatin Calcium (Atorvastatin Calcium 80 Mg Tablet) 80 mg PO DAILY [facility] Clopidogrel Bisulfate (Clopidogrel Bisulfate 75 Mg Tablet) 75 mg PO DAILY [facility] Last Admin: 06/12/23 10:40 Dose: 75 mg Dextrose (Dextrose 50 % 25 Gm/50 Ml Syringe) 25 gm IVPUSH Q15M PRN; Protocol PRN Reason: per Hypoglycemia Standing Ord. Dorzolamide HCl (Dorzolamide Hcl 2 % Ophth Jyothi 10 Ml Drpbtl) 1 drop EYE-LEFT BID [facility] Last Admin: 06/12/23 10:39 Dose: 1 drop Fluticasone Propionate (Fluticasone Propionate Nasal 16 Gm [place]) 1 spray NOSTRIL-B Q12H PRN PRN Reason: Allergy Symptoms Furosemide (Furosemide 40 Mg Tablet) 40 mg PO DAILY [facility]; Protocol Last Admin: 06/12/23 10:40 Dose: 40 mg Glucose (Glucose Gel 15 Gm Gel..Gram.) 15 gm PO Q15M PRN; Protocol PRN Reason: per Hypoglycemia Standing Ord. Heparin Sodium (Porcine) (Heparin Sodium,Porcine 5,000 Unit/Ml Vial) 5,000 unit SUBCUT Q12H [facility] Last Admin: 06/12/23 08:11 Dose: 5,000 unit Ceftriaxone Sodium 1 gm/ (Sodium Chloride) 50 mls @ 100 mls/hr IV Q24H [facility] Vancomycin HCl (Vancomycin/Ns) 2,000 mg in 500 mls @ 250 mls/hr IV ONCE ONE Stop: 06/12/23 12:59 Last Admin: 06/12/23 10:43 Dose: 250 mls/hr Vancomycin HCl 500 mg/ Sodium (Chloride) 110 mls @ 110 mls/hr IV [id number] [facility] Insulin Human Lispro (Insulin Lispro 100 Unit/Ml 3 Ml Vial) 0 unit SUBCUT QIDACHS [facility]; Protocol Last Admin: 06/12/23 08:03 Dose: Not Given Isosorbide Mononitrate (Isosorbide Mononitrate 30 Mg Tab.Er.24h) 30 mg PO DAILY [facility]; Protocol Last Admin: 06/12/23 10:40 Dose: 30 mg Latanoprost (Latanoprost 0.005 % Ophth Jy[place]i 2.5 Ml Drops) 1 drop EYE-BOTH BEDTIME [facility] Melatonin (Melatonin 3 Mg Tablet) 6 mg PO BEDTIME PRN PRN Reason: Insomnia Metoprolol Succinate (Metoprolol Succinate Er 100 Mg Tab.Er.24h) 100 mg PO DAILY [facility]; Protocol Last Admin: 06/12/23 10:39 Dose: 100 mg Morphine Sulfate (Morphine Sulfate 2 Mg/Ml Cartridge) 2 mg IVPUSH Q4H PRN; Protocol PRN Reason: Pain, Severe (Pain Scale 7-10) Last Admin: 06/12/23 04:44 Dose: 2 mg Nitroglycerin (Nitroglycerin 2 % Oint 1 Gm Packet) 1 inch TRANSDERMA RQ6H WHILE AWAKE PRN PRN Reason: Angina Omeprazole (Omeprazole 20 Mg Capsule.Dr) 20 mg PO DAILY@0630 [facility] Ondansetron HCl (Ondansetron Hcl 4 Mg/2 Ml Vial) 4 mg IVPUSH Q4H PRN PRN Reason: Nausea and Vomiting Last Admin: 06/12/23 06:41 Dose: 4 mg Pharmacy Consult (Consult Rx Vancomycin Dosing) 1 each MISCELLANE DAILY PRN PRN Reason: Consult order Sertraline HCl (Sertraline Hcl 50 Mg Tablet) 50 mg PO DAILY [facility] Last Admin: 06/12/23 10:40 Dose: 50 mg Sodium Chloride (0.9 % Sodium Chloride Flush 3 Ml Syringe) 3 ml IVFLUSH QSHIFT [facility] Last Admin: 06/12/23 08:13 Dose: 3 ml Sucralfate (Sucralfate 1 Gm Tablet) 1 gm PO BID [facility] Last Admin: 06/12/23 10:40 Dose: 1 gm Timolol Maleate (Timolol Maleate 0.5 % Oph [place] 5 Ml Drbtl) 1 drop EYE-BOTH DAILY [facility] Last Admin: 06/12/23 10:39 Dose: 1 drop Vitamin D (Cholecalciferol (Vitamin D3) 25 Mcg Tablet) 50 mcg PO DAILY [facility] Last Admin: 06/12/23 10:39 Dose: 50 mcg Home Medications Medication Instructions Recorded Confirmed Last Taken Type aspirin 81 mg tablet,delayed 81 mg PO DAILY 02/10/22 06/12/23 06/11/23 History release atorvastatin 80 mg tablet 80 mg PO DAILY 02/10/22 06/12/23 06/11/23 History cholecalciferol (vitamin D3) 50 50 mcg PO DAILY 02/10/22 06/12/23 06/11/23 History mcg (2,000 unit) capsule insulin degludec 100 unit/mL (3 17 unit subcut BID 02/10/22 06/12/23 06/11/23 History mL) subcutaneous pen (Tresiba FlexTouch U-100 insulin) furosemide 40 mg tablet 40 mg PO DAILY 01/17/23 06/12/23 06/11/23 History latanoprost 0.005 % eye drops 1 drp ophthalmic (eye) BEDTIME 01/17/23 06/12/23 06/11/23 History timolol maleate 0.5 % eye drops 1 drp ophthalmic (eye) DAILY 01/17/23 06/12/23 06/11/23 History amlodipine 10 mg tablet 10 mg PO DAILY 02/22/23 06/12/23 06/11/23 History clopidogrel 75 mg tablet 75 mg PO DAILY 02/22/23 06/12/23 06/11/23 History metoprolol succinate 100 mg 100 mg PO DAILY 02/22/23 06/12/23 06/11/23 History tablet,extended release 24 hr dorzolamide 2 % eye drops 1 drp ophthalmic-Left Q12H 06/12/23 06/12/23 06/11/23 History fluticasone propionate 50 1 spray intranasal Q12H PRN 06/12/23 06/12/23 Unknown History mcg/actuation nasal Allergy Symptoms spray,suspension (Flonase Allergy Relief) isosorbide mononitrate 30 mg 30 mg PO DAILY 06/12/23 06/12/23 06/11/23 History tablet,extended release 24 hr nitroglycerin 2 % transdermal 1 inch transdermal RQ6H WHILE 06/12/23 06/12/23 Unknown History ointment (Nitro-Bid) AWAKE PRN Angina pantoprazole 40 mg tablet,delayed 40 mg PO DAILY@0630 06/12/23 06/12/23 06/11/23 History release sertraline 50 mg tablet 50 mg PO DAILY 06/12/23 06/12/23 06/11/23 History Physical Exam Vital Signs: Last Vital Signs Temp 100.8 F H 06/12/23 09:30 Pulse 78 06/12/23 07:12 Resp 18 06/12/23 07:12 BP 144/66 H 06/12/23 07:12 Pulse Ox 96 06/12/23 07:12 O2 Del Method Room Air 06/12/23 07:12 BMI result Body Mass Index 28.0 Results Lab Results 06/11/23 18:16 06/12/23 08:11 Lab results: Chemistry 06/11/23 06/12/23 18:16 08:11 Sodium 135 137 Potassium 4.7 D 4.1 Carbon Dioxide 22 20 L BUN 69 H 70 H Creatinine 5.22 H* 5.05 H* Calcium 9.7 D 9.1 D Hematology 06/11/23 18:16 WBC 16.6 H Hgb 14.2 Plt Count 204 Urinalysis 06/11/23 19:24 Urine Color Yellow Urine Appearance Turbid Urine pH 5.0 Ur Specific [place] 1.015 Urine Protein 300 (3+) H Urine Glucose (UA) Negative Urine Ketones Negative Urine Blood Moderate (2+) H Urine Nitrite Negative Ur Leukocyte Esterase Large (3+) H Urine RBC 6-10 H Urine WBC >50 H Ur Squamous Epith Cells 0-2 Hyaline Casts 3-5 Assessment and Plan (1) Sepsis: Qualifiers: Sepsis acute organ dysfunction status: without acute organ dysfunction Sepsis type: sepsis due to unspecified organism Qualified Code(s): A41.9 - Sepsis, unspecified organism Status: Acute (2) UTI (urinary tract infection): Status: Acute (3) Acute metabolic encephalopathy: Status: Acute Plan Mr. Mark Conte is a 72-year-old gentleman with past medical history of CAD s/p quintuple coronary artery bypass grafting in 2018 and stenting in 2022, HTN, HLD, insulin-dependent diabetes type 2, ESRD on hemodialysis M/W/F, spinal stenosis with lower extremity weakness who presented with dysuria which occured after HD treatment. ESRD on hemodialysis M/W/F Continue allopurinol 100mg daily is a good renal dose Renal restricted diet No ESAs required Time Spent With Patient Time: Total time managing care of this patient today ____ minutes. Procedures Date of Service Date of Service: 06/12/23
--- NOTE | 2023-06-12 11:50 | HO.PM.IMPN ---
Subjective Subjective Date of Service: 06/12/23 Interval History: Seen and evaluated still febrile having lower abdominal pain Review of Systems Review of Systems: Yes all other systems are reviewed and are negative Physical Exam Vital Signs: Vital Signs: Last Vital Signs Temp 100.8 F H 06/12/23 09:30 Pulse 78 06/12/23 07:12 Resp 18 06/12/23 07:12 BP 144/66 H 06/12/23 07:12 Pulse Ox 96 06/12/23 07:12 O2 Del Method Room Air 06/12/23 07:12 BMI result Body Mass Index 28.0 Const: Other: Constitutional : Awake, interactive, not in distress Neck : Normal inspection, Supple Cardiovascular : RRR, no JVP, no lower extremity edema, Permacath in place Respiratory : good bilateral air entry, no crackles, wheezes or rhonchi Gastrointestinal: soft, lax, Normal bowel sounds, Non tender on abd exam Skin : Warm, Dry Neurological : Alert & oriented x3, No focal deficit Objective Data Active Medications Acetaminophen (Acetaminophen 325 Mg Tablet) 650 mg PO Q6H PRN PRN Reason: Pain, Mild (Pain Scale 1-3) Last Admin: 06/12/23 08:10 Dose: 650 mg Documented By: TAVON Acetaminophen (Acetaminophen Supp 650 Mg Supp.Rect) 650 mg [place] Q6H PRN PRN Reason: Pain, Mild (Pain Scale 1-3) Amlodipine Besylate (Amlodipine Besylate 10 Mg Tablet) 10 mg PO DAILY [facility]; Protocol Aspirin (Aspirin Enteric Coated 81 Mg Tablet.Dr) 81 mg PO DAILY [facility] Atorvastatin Calcium (Atorvastatin Calcium 80 Mg Tablet) 80 mg PO DAILY [facility] Clopidogrel Bisulfate (Clopidogrel Bisulfate 75 Mg Tablet) 75 mg PO DAILY [facility] Last Admin: 06/12/23 10:40 Dose: 75 mg Documented By: JACOBY Dextrose (Dextrose 50 % 25 Gm/50 Ml Syringe) 25 gm IVPUSH Q15M PRN; Protocol PRN Reason: per Hypoglycemia Standing Ord. Dorzolamide HCl (Dorzolamide Hcl 2 % Ophth Jyothi 10 Ml Drpbtl) 1 drop EYE-LEFT BID [facility] Last Admin: 06/12/23 10:39 Dose: 1 drop Documented By: JACOBY Fluticasone Propionate (Fluticasone Propionate Nasal 16 Gm [place]) 1 spray NOSTRIL-B Q12H PRN PRN Reason: Allergy Symptoms Furosemide (Furosemide 40 Mg Tablet) 40 mg PO DAILY [facility]; Protocol Last Admin: 06/12/23 10:40 Dose: 40 mg Documented By: JACOBY Glucose (Glucose Gel 15 Gm Gel..Gram.) 15 gm PO Q15M PRN; Protocol PRN Reason: per Hypoglycemia Standing Ord. Heparin Sodium (Porcine) (Heparin Sodium,Porcine 5,000 Unit/Ml Vial) 5,000 unit SUBCUT Q12H [facility] Last Admin: 06/12/23 08:11 Dose: 5,000 unit Documented By: TAVON Ceftriaxone Sodium 1 gm/ (Sodium Chloride) 50 mls @ 100 mls/hr IV Q24H [facility] Vancomycin HCl (Vancomycin/Ns) 2,000 mg in 500 mls @ 250 mls/hr IV ONCE ONE Stop: 06/12/23 12:59 Last Admin: 06/12/23 10:43 Dose: 250 mls/hr Documented By: JACOBY Vancomycin HCl 500 mg/ Sodium (Chloride) 110 mls @ 110 mls/hr IV MoWeFr@1800 [facility] Insulin Human Lispro (Insulin Lispro 100 Unit/Ml 3 Ml Vial) 0 unit SUBCUT QIDACHS [facility]; Protocol Last Admin: 06/12/23 11:40 Dose: Not Given Documented By: TAVON Non-Admin Reason: No Insulin Coverage Isosorbide Mononitrate (Isosorbide Mononitrate 30 Mg Tab.Er.24h) 30 mg PO DAILY [facility]; Protocol Last Admin: 06/12/23 10:40 Dose: 30 mg Documented By: JACOBY Latanoprost (Latanoprost 0.005 % Ophth Jyothi 2.5 Ml Drops) 1 drop EYE-BOTH BEDTIME [facility] Melatonin (Melatonin 3 Mg Tablet) 6 mg PO BEDTIME PRN PRN Reason: Insomnia Metoprolol Succinate (Metoprolol Succinate Er 100 Mg Tab.Er.24h) 100 mg PO DAILY [facility]; Protocol Last Admin: 06/12/23 10:39 Dose: 100 mg Documented By: JACOBY Morphine Sulfate (Morphine Sulfate 2 Mg/Ml Cartridge) 2 mg IVPUSH Q4H PRN; Protocol PRN Reason: Pain, Severe (Pain Scale 7-10) Last Admin: 06/12/23 04:44 Dose: 2 mg Documented By: SERENE Nitroglycerin (Nitroglycerin 2 % Oint 1 Gm Packet) 1 inch TRANSDERMA RQ6H WHILE AWAKE PRN PRN Reason: Angina Omeprazole (Omeprazole 20 Mg Capsule.Dr) 20 mg PO DAILY@0630 [facility] Ondansetron HCl (Ondansetron Hcl 4 Mg/2 Ml Vial) 4 mg IVPUSH Q4H PRN PRN Reason: Nausea and Vomiting Last Admin: 06/12/23 06:41 Dose: 4 mg Documented By: SERENE Pharmacy Consult (Consult Rx Vancomycin Dosing) 1 each MISCELLANE DAILY PRN PRN Reason: Consult order Sertraline HCl (Sertraline Hcl 50 Mg Tablet) 50 mg PO DAILY [facility] Last Admin: 06/12/23 10:40 Dose: 50 mg Documented By: JACOBY Sodium Chloride (0.9 % Sodium Chloride Flush 3 Ml Syringe) 3 ml IVFLUSH QSHIFT [facility] Last Admin: 06/12/23 08:13 Dose: 3 ml Documented By: TAVON Sucralfate (Sucralfate 1 Gm Tablet) 1 gm PO BID [facility] Last Admin: 06/12/23 10:40 Dose: 1 gm Documented By: JACOBY Timolol Maleate (Timolol Maleate 0.5 % Oph Jyothi 5 Ml Drbtl) 1 drop EYE-BOTH DAILY [facility] Last Admin: 06/12/23 10:39 Dose: 1 drop Documented By: JACOBY Vitamin D (Cholecalciferol (Vitamin D3) 25 Mcg Tablet) 50 mcg PO DAILY [facility] Last Admin: 06/12/23 10:39 Dose: 50 mcg Documented By: JACOBY Labs 06/11/23 18:16 06/12/23 08:11 Labs: Laboratory Results - last 24 hr 06/11/23 06/11/23 06/11/23 18:16 18:18 19:24 MCV 81.7 MCH 28.0 MCHC 34.3 RDW 13.1 Plt Count 204 MPV 10.1 Immature Gran % (Auto) 0.5 H Neut % (Auto) 80.1 H Lymph % (Auto) 11.0 L [place] % (Auto) 7.8 Eos % (Auto) 0.2 Baso % (Auto) 0.4 Lymph # (Auto) 1.8 [place] # (Auto) 1.3 H Eos # (Auto) 0.0 Baso # (Auto) 0.1 Abs Immat Gran (auto) 0.08 H Absolute Neuts (auto) 13.3 H Absolute Nucleated RBC 0.000 Nucleated RBC % (auto) 0.0 Hold Purple Top Anion Gap 18 Estim Creat Clear Calc 13.6 Estimated GFR 11 POC Glucose Random Glucose 120 H Lactic Acid 1.1 Calcium 9.7 D Magnesium 2.3 Total Bilirubin 0.7 Direct Bilirubin 0.1 AST 34 ALT 28 Alkaline Phosphatase 210 H Total Protein 7.8 Albumin 3.9 Lipase 43 Urine Color Yellow Urine Appearance Turbid Urine pH 5.0 Ur Specific [place] 1.015 Urine Protein 300 (3+) H Urine Glucose (UA) Negative Urine Ketones Negative Urine Blood Moderate (2+) H Urine Nitrite Negative Ur Leukocyte Esterase Large (3+) H Urine RBC 6-10 H Urine WBC >50 H Ur Squamous Epith Cells 0-2 Urine Bacteria 1+ Hyaline Casts 3-5 Influenza Type A (PCR) NEGATIVE Influenza Type B (PCR) NEGATIVE RSV RNA Qual (PCR) NEGATIVE SARS-CoV-2 RNA (RT-PCR) NEGATIVE 06/11/23 06/12/23 06/12/23 21:01 07:19 08:11 MCV MCH MCHC RDW Plt Count MPV Immature Gran % (Auto) Neut % (Auto) Lymph % (Auto) [place] % (Auto) Eos % (Auto) Baso % (Auto) Lymph # (Auto) [place] # (Auto) Eos # (Auto) Baso # (Auto) Abs Immat Gran (auto) Absolute Neuts (auto) Absolute Nucleated RBC Nucleated RBC % (auto) Hold Purple Top SEE NOTE Anion Gap 21 H Estim Creat Clear Calc 13.8 Estimated GFR 11 POC Glucose 78 88 Random Glucose 87 Lactic Acid Calcium 9.1 D Magnesium Total Bilirubin 0.6 Direct Bilirubin AST 33 ALT 34 Alkaline Phosphatase 191 H Total Protein 6.5 Albumin 3.4 L Lipase Urine Color Urine Appearance Urine pH Ur Specific [place] Urine Protein Urine Glucose (UA) Urine Ketones Urine Blood Urine Nitrite Ur Leukocyte Esterase Urine RBC Urine WBC Ur Squamous Epith Cells Urine Bacteria Hyaline Casts Influenza Type A (PCR) Influenza Type B (PCR) RSV RNA Qual (PCR) SARS-CoV-2 RNA (RT-PCR) 06/12/23 11:15 MCV MCH MCHC RDW Plt Count MPV Immature Gran % (Auto) Neut % (Auto) Lymph % (Auto) [place] % (Auto) Eos % (Auto) Baso % (Auto) Lymph # (Auto) [place] # (Auto) Eos # (Auto) Baso # (Auto) Abs Immat Gran (auto) Absolute Neuts (auto) Absolute Nucleated RBC Nucleated RBC % (auto) Hold Purple Top Anion Gap Estim Creat Clear Calc Estimated GFR POC Glucose 112 Random Glucose Lactic Acid Calcium Magnesium Total Bilirubin Direct Bilirubin AST ALT Alkaline Phosphatase Total Protein Albumin Lipase Urine Color Urine Appearance Urine pH Ur Specific [place] Urine Protein Urine Glucose (UA) Urine Ketones Urine Blood Urine Nitrite Ur Leukocyte Esterase Urine RBC Urine WBC Ur Squamous Epith Cells Urine Bacteria Hyaline Casts Influenza Type A (PCR) Influenza Type B (PCR) RSV RNA Qual (PCR) SARS-CoV-2 RNA (RT-PCR) Microbiology Microbiology Results: Microbiology 06/11/23 Unknown Urine Culture - Preliminary Urine clean catch - Urine denny top Gram negative marc Assessment and Plan (1) Acute metabolic encephalopathy: Status: Acute (2) UTI (urinary tract infection): Status: Acute (3) Sepsis: Status: Acute Plan a 72-year-old male with a PMH significant for?CAD s/p quintuple coronary artery bypass grafting in 2017 and stenting in 2022, HTN, HLD, insulin-dependent diabetes type 2, ESRD on hemodialysis M/W/F, spinal stenosis with lower extremity weakness and unsteady gait who presents to the ED with?dysuria and increased urgency since last night. Pt will be admitted to the hospital for treatment further evaluation of sepsis in the setting of UTI. Acute metabolic encephalopathy 2/2 sepsis d/t UTI Encephalopathy resolving Pending cultures CT abd\pelvis check PSA consider Urology eval Add Vancomycin and continue IV ceftriaxone, started 06/11/2023 Follow CBC ESRD hemodialysis M/W/F Nephrology consultation CAD Continue aspirin, statin, clopidogrel HTN Continue home meds Insulin-dependent diabetes type 2 Hold degludec SSI Gout Continue allopurinol Full Code DVT Prophylaxis: Heparin Pt will require a hospitalization overnight for treatment and further evaluation of?acute encephalopathy in setting of sepsis d/t UTI with IV antibiotics and close monitoring. Time Spent With Patient Time: Total time managing care of this patient today ____ minutes. Quality Stroke Does the patient have a stroke diagnosis?: No VTE Prior VTE?: No VTE Risk Level:: Medical - moderate - high VTE Device Contraindication: Treatment Not Indicated VTE Drug Contraindication: N/A - Med Ordered
[2023-06-12] MEDS: Tamsulosin HCL 0.4 MG CAPSULE 0.8 MG PO (13:38)
[2023-06-12 14:31] LABS: Prostate Specific Antigen 37.51 ng/mL (<0.05-4.0)
[2023-06-12 16:37] LABS: Glucose, Whole Blood 184 mg/dL (60-115)
[2023-06-12] MEDS: Insulin Lispro 100 UNIT/ML 3 ML VIAL SUBCUT ×2 (16:56→22:37)
[2023-06-12 21:39] LABS: Glucose, Whole Blood 158 mg/dL (60-115)
[2023-06-12] MEDS: cefTRIAXone sodium 1 GM in 0.9 % Sodium Chloride 50 ML IV (21:44)
[2023-06-12] MEDS: Latanoprost 0.005 % Ophth Sol 2.5 ML DROPS 1 DROP EYE-BOTH (21:51)
[2023-06-13] MEDS: Calcium Carbonate 750 MG TAB.CHEW PO (01:37)
[2023-06-13 04:00] VITALS: BP 110/60; PULSE 67; RESP 20; TEMP 36.1; O2SAT 98
[2023-06-13] MEDS: Morphine Sulfate 2 MG/ML CARTRIDGE IVPUSH (05:31)
[2023-06-13] MEDS: Omeprazole 20 MG CAPSULE.DR PO (05:31)
[2023-06-13 06:11] LABS: Hematocrit 33.9 % (42.0-52.0); Hemoglobin 11.4 g/dl (14.0-18.0); Mean Corpuscular HGB Conc 33.6 g/dl (31.0-36.0); Mean Corpuscular Hemoglobin 27.7 pg (27.0-33.0); Mean Corpuscular Volume 82.5 fL (80.0-98.0); Mean Platelet Volume 10.5 fL (9.4-12.4); Platelet Count 124 X10*3/uL (160-400); Red Blood Count 4.11 X10*6/uL (4.60-5.80); Red Cell Distribution Width 13.4 % (11.0-16.0); White Blood Count 12.2 X10*3/uL (4.8-10.8)
[2023-06-13 06:22] LABS: Anion Gap 22 (12-20); Blood Urea Nitrogen 82 mg/dL (9-16); Carbon Dioxide 20 mmol/L (22-29); Chloride 95 mmol/L (96-108); Creatinine Clr Calc Pharmacy 12.9; Estimated Glomerular Filt Rate 11; Glucose Random 200 mg/dL (60-115); Potassium 4.6 mmol/L (3.3-5.1); Sodium 132 mmol/L (135-145)
[2023-06-13 07:08] VITALS: BP 136/65; PULSE 68; RESP 20; TEMP 36.6; O2SAT 96
[2023-06-13 07:28] LABS: Glucose, Whole Blood 201 mg/dL (60-115)
[2023-06-13] MEDS: Acetaminophen 325 MG TABLET 650 MG PO ×2 (08:13→21:28)
[2023-06-13] MEDS: amLODIPine Besylate 10 MG TABLET PO (08:14)
[2023-06-13] MEDS: Sucralfate 1 GM TABLET PO ×2 (08:14→21:28)
[2023-06-13] MEDS: Metoprolol Succinate ER 100 MG TAB.ER.24H PO (08:14)
[2023-06-13] MEDS: Furosemide 40 MG TABLET PO (08:14)
[2023-06-13] MEDS: Aspirin Enteric Coated 81 MG TABLET.DR PO (08:14)
[2023-06-13] MEDS: Tamsulosin HCL 0.4 MG CAPSULE 0.8 MG PO (08:14)
[2023-06-13] MEDS: Cholecalciferol (Vitamin D3) 25 MCG TABLET 50 MCG PO (08:14)
[2023-06-13] MEDS: Atorvastatin Calcium 80 MG TABLET PO (08:14)
[2023-06-13] MEDS: Clopidogrel Bisulfate 75 MG TABLET PO (08:15)
[2023-06-13] MEDS: Isosorbide Mononitrate 30 MG TAB.ER.24H PO (08:15)
[2023-06-13] MEDS: Heparin Sodium,Porcine 5,000 UNIT/ML VIAL 5000 UNIT SUBCUT ×2 (08:15→21:30)
[2023-06-13] MEDS: Dorzolamide HCl 2 % Ophth Sol 10 ML DRPBTL 1 DROP EYE-LEFT ×2 (08:16→21:30)
[2023-06-13] MEDS: Insulin Lispro 100 UNIT/ML 3 ML VIAL SUBCUT ×4 (08:16→21:32)
[2023-06-13] MEDS: timoloL maleate 0.5 % Oph Sol 5 ML DRBTL 1 DROP EYE-BOTH (08:16)
[2023-06-13] MEDS: 0.9 % Sodium Chloride Flush 3 ML SYRINGE IVFLUSH ×3 (08:17→21:28)
[2023-06-13] MEDS: Simethicone 80 MG TAB.CHEW PO ×4 (09:44→21:39)
[2023-06-13 11:10] LABS: Glucose, Whole Blood 211 mg/dL (60-115)
--- NOTE | 2023-06-13 11:14 | P.PNNP_ITS ---
Subjective Subjective Date of Service: 06/13/23 Interval history: Seen AM. For HD today; All recent data reviewed Physical Exam 2 Vital Signs: Vital Signs: Last Vital Signs Temp 97.8 F 06/13/23 07:08 Pulse 68 06/13/23 07:08 Resp 20 06/13/23 07:08 BP 136/65 06/13/23 07:08 Pulse Ox 96 06/13/23 07:08 O2 Del Method Room Air 06/13/23 07:08 BMI result Body Mass Index 28.0 Const: General: no acute distress Orientation/consciousness: patient oriented x3 Eyes: EOM: EOMs intact bilaterally Resp: Auscultation: diminished lung sounds Cardio: Rate: regular rate GI: Palpation (GI): Soft to palpation Neuro: General: patient oriented x3 and moves all extremities Objective Data Labs 06/13/23 05:23 06/13/23 05:23 Labs: Laboratory Results - last 24 hr 06/12/23 06/12/23 06/12/23 11:15 13:47 16:25 WBC RBC Hgb Hct MCV MCH MCHC RDW Plt Count MPV Absolute Nucleated RBC Nucleated RBC % (auto) Sodium Potassium Chloride Carbon Dioxide Anion Gap BUN Creatinine Estim Creat Clear Calc Estimated GFR POC Glucose 112 184 H Random Glucose Calcium Prostate Specific Ag 37.51 H 06/12/23 06/13/23 06/13/23 21:34 05:23 07:22 WBC 12.2 H RBC 4.11 L Hgb 11.4 L Hct 33.9 L MCV 82.5 MCH 27.7 MCHC 33.6 RDW 13.4 Plt Count 124 L D MPV 10.5 Absolute Nucleated RBC 0.000 Nucleated RBC % (auto) 0.0 Sodium 132 L Potassium 4.6 Chloride 95 L Carbon Dioxide 20 L Anion Gap 22 H BUN 82 H Creatinine 5.41 H* Estim Creat Clear Calc 12.9 Estimated GFR 11 POC Glucose 158 H 201 H Random Glucose 200 H Calcium 9.0 Prostate Specific Ag 06/13/23 11:07 WBC RBC Hgb Hct MCV MCH MCHC RDW Plt Count MPV Absolute Nucleated RBC Nucleated RBC % (auto) Sodium Potassium Chloride Carbon Dioxide Anion Gap BUN Creatinine Estim Creat Clear Calc Estimated GFR POC Glucose 211 H Random Glucose Calcium Prostate Specific Ag Microbiology Microbiology Results: Microbiology 06/11/23 Unknown Urine clean catch - Urine denny top Urine Culture - Final Klebsiella pneumoniae 06/11/23 19:24 Blood - Venous Blood Culture - Preliminary No growth after 24 hours. 06/11/23 18:16 Blood - Venous Blood Culture - Preliminary No growth after 24 hours. Procedures Date of Service Date of Service: 06/13/23 Assessment & Plan Assessment and plan (1) ESRD (end stage renal disease) on dialysis: Status: Acute Assessment and Plan: Mr. Mark Conte is a 72-year-old gentleman with past medical history of CAD s/p quintuple coronary artery bypass grafting in 2017 and stenting in 2022, HTN, HLD, insulin-dependent diabetes type 2, ESRD on hemodialysis M/W/F, spinal stenosis with lower extremity weakness who presented with dysuria which occurred after HD treatment. ESRD on hemodialysis M/W/F; Due HD today Renal restricted diet; No ESAs required for now C/W rest of current maangement for now Progress Note: Quality Stroke Does the patient have a stroke diagnosis?: No
--- NOTE | 2023-06-13 13:21 | P.PNIM_ITS ---
Subjective Subjective Date of Service: 06/13/23 Interval History: Seen and evaluated No fever this morning having right sided abdominal pain Tolerating diet Cx growing GNR Review of Systems Review of Systems: Yes all other systems are reviewed and are negative Physical Exam 2 Vital Signs: Vital Signs: Last Vital Signs Temp 97.8 F 06/13/23 07:08 Pulse 68 06/13/23 07:08 Resp 20 06/13/23 07:08 BP 136/65 06/13/23 07:08 Pulse Ox 96 06/13/23 07:08 O2 Del Method Room Air 06/13/23 07:08 BMI result Body Mass Index 28.0 Const: Other: Constitutional : Awake, interactive, not in distress Neck : Normal inspection, Supple Cardiovascular : RRR, no JVP, no lower extremity edema, Permacath in place Respiratory : good bilateral air entry, no crackles, wheezes or rhonchi Gastrointestinal: soft, lax, Normal bowel sounds, Non tender on abd exam , no surgical signs on rUQ Skin : Warm, Dry Neurological : Alert & oriented x3, No focal deficit Objective Data Active Medications Acetaminophen (Acetaminophen 325 Mg Tablet) 650 mg PO Q6H PRN PRN Reason: Pain, Mild (Pain Scale 1-3) Last Admin: 06/13/23 08:13 Dose: 650 mg Documented By: DORI Acetaminophen (Acetaminophen Supp 650 Mg Supp.Rect) 650 mg [place] Q6H PRN PRN Reason: Pain, Mild (Pain Scale 1-3) Amlodipine Besylate (Amlodipine Besylate 10 Mg Tablet) 10 mg PO DAILY [facility]; Protocol Last Admin: 06/13/23 08:14 Dose: 10 mg Documented By: DORI Aspirin (Aspirin Enteric Coated 81 Mg Tablet.) 81 mg PO DAILY [facility] Last Admin: 06/13/23 08:14 Dose: 81 mg Documented By: DORI Atorvastatin Calcium (Atorvastatin Calcium 80 Mg Tablet) 80 mg PO DAILY [facility] Last Admin: 06/13/23 08:14 Dose: 80 mg Documented By: DORI Belladonnpetra Alkaloids/Phenobarbital (Phenobarb/Hyoscy/Atropine/Scop 10 Ml [place]) 5 ml PO TID PRN PRN Reason: abdominal pain Clopidogrel Bisulfate (Clopidogrel Bisulfate 75 Mg Tablet) 75 mg PO DAILY [facility] Last Admin: 06/13/23 08:15 Dose: 75 mg Documented By: DORI Dextrose (Dextrose 50 % 25 Gm/50 Ml Syringe) 25 gm IVPUSH Q15M PRN; Protocol PRN Reason: per Hypoglycemia Standing Ord. Dorzolamide HCl (Dorzolamide Hcl 2 % Ophth Jyothi 10 Ml Drpbtl) 1 drop EYE-LEFT BID [facility] Last Admin: 06/13/23 08:16 Dose: 1 drop Documented By: DORI Fluticasone Propionate (Fluticasone Propionate Nasal 16 Gm [place]) 1 spray NOSTRIL-B Q12H PRN PRN Reason: Allergy Symptoms Furosemide (Furosemide 40 Mg Tablet) 40 mg PO DAILY [facility]; Protocol Last Admin: 06/13/23 08:14 Dose: 40 mg Documented By: DORI Glucose (Glucose Gel 15 Gm Gel..Gram.) 15 gm PO Q15M PRN; Protocol PRN Reason: per Hypoglycemia Standing Ord. Heparin Sodium (Porcine) (Heparin Sodium,Porcine 5,000 Unit/Ml Vial) 5,000 unit SUBCUT Q12H [facility] Last Admin: 06/13/23 08:15 Dose: 5,000 unit Documented By: DORI Ceftriaxone Sodium 1 gm/ (Sodium Chloride) 50 mls @ 100 mls/hr IV Q24H [facility] Last Infusion: 06/12/23 22:45 Dose: Infused Documented By: ALANA Vancomycin HCl 500 mg/ Sodium (Chloride) 110 mls @ 110 mls/hr IV MoWeFr@1800 [facility] Insulin Human Lispro (Insulin Lispro 100 Unit/Ml 3 Ml Vial) 0 unit SUBCUT QIDACHS [facility]; Protocol Last Admin: 06/13/23 11:36 Dose: 4 unit Documented By: DORI Isosorbide Mononitrate (Isosorbide Mononitrate 30 Mg Tab.Er.24h) 30 mg PO DAILY [facility]; Protocol Last Admin: 06/13/23 08:15 Dose: 30 mg Documented By: DORI Latanoprost (Latanoprost 0.005 % Ophth Jyothi 2.5 Ml Drops) 1 drop EYE-BOTH BEDTIME [facility] Last Admin: 06/12/23 21:51 Dose: 1 drop Documented By: ALANA Melatonin (Melatonin 3 Mg Tablet) 6 mg PO BEDTIME PRN PRN Reason: Insomnia Metoprolol Succinate (Metoprolol Succinate Er 100 Mg Tab.Er.24h) 100 mg PO DAILY [facility]; Protocol Last Admin: 06/13/23 08:14 Dose: 100 mg Documented By: DORI Morphine Sulfate (Morphine Sulfate 2 Mg/Ml Cartridge) 2 mg IVPUSH Q4H PRN; Protocol PRN Reason: Pain, Severe (Pain Scale 7-10) Last Admin: 06/13/23 05:31 Dose: 2 mg Documented By: ALANA Nitroglycerin (Nitroglycerin 2 % Oint 1 Gm Packet) 1 inch TRANSDERMA RQ6H WHILE AWAKE PRN PRN Reason: Angina Omeprazole (Omeprazole 20 Mg Capsule.Dr) 20 mg PO DAILY@0630 [facility] Last Admin: 06/13/23 05:31 Dose: 20 mg Documented By: ALANA Ondansetron HCl (Ondansetron Hcl 4 Mg/2 Ml Vial) 4 mg IVPUSH Q4H PRN PRN Reason: Nausea and Vomiting Last Admin: 06/12/23 22:49 Dose: 4 mg Documented By: ALANA Pharmacy Consult (Consult Rx Vancomycin Dosing) 1 each MISCELLANE DAILY PRN PRN Reason: Consult order Sertraline HCl (Sertraline Hcl 50 Mg Tablet) 50 mg PO DAILY [facility] Last Admin: 06/13/23 08:16 Dose: Not Given Documented By: DORI Non-Admin Reason: Patient Refused Simethicone (Simethicone 80 Mg Tab.Chew) 80 mg PO QIDWMHS [facility] Last Admin: 06/13/23 11:36 Dose: 80 mg Documented By: DORI Sodium Chloride (0.9 % Sodium Chloride Flush 3 Ml Syringe) 3 ml IVFLUSH QSHIFT [facility] Last Admin: 06/13/23 08:17 Dose: 3 ml Documented By: DORI Sucralfate (Sucralfate 1 Gm Tablet) 1 gm PO BID [facility] Last Admin: 06/13/23 08:14 Dose: 1 gm Documented By: DORI Tamsulosin HCl (Tamsulosin Hcl 0.4 Mg Capsule) 0.8 mg PO DAILY [facility] Last Admin: 06/13/23 08:14 Dose: 0.8 mg Documented By: DORI Timolol Maleate (Timolol Maleate 0.5 % Oph Jyothi 5 Ml Drbtl) 1 drop EYE-BOTH DAILY [facility] Last Admin: 06/13/23 08:16 Dose: 1 drop Documented By: DORI Vitamin D (Cholecalciferol (Vitamin D3) 25 Mcg Tablet) 50 mcg PO DAILY [facility] Last Admin: 06/13/23 08:14 Dose: 50 mcg Documented By: DORI Labs 06/13/23 05:23 06/13/23 05:23 Labs: Laboratory Results - last 24 hr 06/12/23 06/12/23 06/12/23 13:47 16:25 21:34 MCV MCH MCHC RDW Plt Count MPV Absolute Nucleated RBC Nucleated RBC % (auto) Anion Gap Estim Creat Clear Calc Estimated GFR POC Glucose 184 H 158 H Random Glucose Calcium Prostate Specific Ag 37.51 H 06/13/23 06/13/23 06/13/23 05:23 07:22 11:07 MCV 82.5 MCH 27.7 MCHC 33.6 RDW 13.4 Plt Count 124 L D MPV 10.5 Absolute Nucleated RBC 0.000 Nucleated RBC % (auto) 0.0 Anion Gap 22 H Estim Creat Clear Calc 12.9 Estimated GFR 11 POC Glucose 201 H 211 H Random Glucose 200 H Calcium 9.0 Prostate Specific Ag Microbiology Microbiology Results: Microbiology 06/11/23 Unknown Urine Culture - Final Urine clean catch - Urine denny top Klebsiella pneumoniae 06/11/23 19:24 Blood Culture - Preliminary Blood - Venous No growth after 24 hours. 06/11/23 18:16 Blood Culture - Preliminary Blood - Venous No growth after 24 hours. Assessment and Plan (1) ESRD (end stage renal disease) on dialysis: Status: Acute (2) Acute metabolic encephalopathy: Status: Acute (3) UTI (urinary tract infection): Status: Acute (4) Sepsis: Status: Acute Plan a 72-year-old male with a PMH significant for?CAD s/p quintuple coronary artery bypass grafting in 2017 and stenting in 2022, HTN, HLD, insulin-dependent diabetes type 2, ESRD on hemodialysis M/W/F, spinal stenosis with lower extremity weakness and unsteady gait who presents to the ED with?dysuria and increased urgency since last night. Pt will be admitted to the hospital for treatment further evaluation of sepsis in the setting of UTI. Acute metabolic encephalopathy 2/2 sepsis d/t UTI Encephalopathy resolved Urine cultures growing GNR CT abd\pelvis showing enlarge prostate w thickened wall bladder PSA elevated consult Urologyl DC Vancomycin continue IV ceftriaxone, started 06/11/2023 Follow CBC Abdominal pain negative GB for stones likely IBS, start symptomatic meds ESRD hemodialysis M/W/F Nephrology following CAD Continue aspirin, statin, clopidogrel HTN Continue home meds Insulin-dependent diabetes type 2 Hold degludec SSI Gout Continue allopurinol Full Code DVT Prophylaxis: Heparin Pt will require a hospitalization overnight for treatment and further evaluation of?acute encephalopathy in setting of sepsis d/t UTI with IV antibiotics and close monitoring. Time Spent With Patient Time: Total time managing care of this patient today ____ minutes. Quality Stroke Does the patient have a stroke diagnosis?: No VTE Prior VTE?: No VTE Risk Level:: Medical - moderate - high VTE Device Contraindication: Treatment Not Indicated VTE Drug Contraindication: N/A - Med Ordered
--- NOTE | 2023-06-13 13:27 | PC.NURSE ---
patient refused dialysis this morning, Dr. Landa notified, pt educated on risks and verbalized understanding
--- NOTE | 2023-06-13 14:43 | MHC.CM.PN ---
per rounds dc pending blood cultiures dc plan [facility] home no services
[2023-06-13 15:19] VITALS: BP 105/57; PULSE 58; RESP 18; TEMP 36.3; O2SAT 96
[2023-06-13 16:49] LABS: Glucose, Whole Blood 244 mg/dL (60-115)
[2023-06-13 19:03] LABS: Vancomycin Random 16.2 mcg/mL (15-20)
[2023-06-13 20:00] VITALS: BP 122/58; PULSE 63; RESP 20; TEMP 36; O2SAT 93
[2023-06-13 20:15] LABS: Glucose, Whole Blood 165 mg/dL (60-115)
[2023-06-13] MEDS: Latanoprost 0.005 % Ophth Sol 2.5 ML DROPS 1 DROP EYE-BOTH (21:34)
[2023-06-13] MEDS: cefTRIAXone sodium 1 GM in 0.9 % Sodium Chloride 50 ML IV (21:34)
[2023-06-14 03:31] VITALS: BP 113/53; PULSE 55; RESP 16; TEMP 36.1; O2SAT 93
[2023-06-14] MEDS: Acetaminophen 325 MG TABLET 650 MG PO (03:43)
[2023-06-14] MEDS: Omeprazole 20 MG CAPSULE.DR PO (05:45)
[2023-06-14 07:22] LABS: Glucose, Whole Blood 152 mg/dL (60-115)
[2023-06-14 07:49] VITALS: BP 120/58; PULSE 64; RESP 16; TEMP 36.2; O2SAT 96
[2023-06-14] MEDS: Insulin Lispro 100 UNIT/ML 3 ML VIAL SUBCUT ×3 (07:56→21:26)
[2023-06-14] MEDS: Heparin Sodium,Porcine 5,000 UNIT/ML VIAL 5000 UNIT SUBCUT ×2 (07:57→20:00)
[2023-06-14] MEDS: Aspirin Enteric Coated 81 MG TABLET.DR PO (07:58)
[2023-06-14] MEDS: Tamsulosin HCL 0.4 MG CAPSULE 0.8 MG PO (07:58)
[2023-06-14] MEDS: Sucralfate 1 GM TABLET PO ×2 (07:59→20:00)
[2023-06-14] MEDS: Cholecalciferol (Vitamin D3) 25 MCG TABLET 50 MCG PO (07:59)
[2023-06-14] MEDS: Isosorbide Mononitrate 30 MG TAB.ER.24H PO (07:59)
[2023-06-14] MEDS: Metoprolol Succinate ER 100 MG TAB.ER.24H PO (08:00)
[2023-06-14] MEDS: Atorvastatin Calcium 80 MG TABLET PO (08:00)
[2023-06-14] MEDS: Clopidogrel Bisulfate 75 MG TABLET PO (08:00)
[2023-06-14] MEDS: Furosemide 40 MG TABLET PO (08:01)
[2023-06-14] MEDS: amLODIPine Besylate 10 MG TABLET PO (08:01)
[2023-06-14 08:15] VITALS: BP 120/58; PULSE 64; O2SAT 96
[2023-06-14] MEDS: PHENobarb/Hyoscy/Atropine/Scop 10 ML ELIXIR 5 ML PO (08:35)
[2023-06-14] MEDS: Dorzolamide HCl 2 % Ophth Sol 10 ML DRPBTL 1 DROP EYE-LEFT ×2 (08:37→20:00)
[2023-06-14] MEDS: timoloL maleate 0.5 % Oph Sol 5 ML DRBTL 1 DROP EYE-BOTH (08:39)
--- NOTE | 2023-06-14 10:29 | P.PNNP_ITS ---
Subjective Subjective Date of Service: 06/14/23 Interval history: Seen AM; Events noted; All recent data reviewed Physical Exam 2 Vital Signs: Vital Signs: Last Vital Signs Temp 97.1 F 06/14/23 07:49 Pulse 64 06/14/23 08:15 Resp 16 06/14/23 07:49 BP 120/58 L 06/14/23 08:15 Pulse Ox 96 06/14/23 08:15 O2 Del Method Room Air 06/14/23 07:49 BMI result Body Mass Index 28.0 Const: General: no acute distress Orientation/consciousness: patient oriented x3 Eyes: EOM: EOMs intact bilaterally Resp: Auscultation: diminished lung sounds Cardio: Rate: regular rate GI: Palpation (GI): Soft to palpation Neuro: General: patient oriented x3 and moves all extremities Objective Data Labs 06/13/23 05:23 06/13/23 05:23 Labs: Laboratory Results - last 24 hr 06/13/23 06/13/23 06/13/23 11:07 16:06 18:15 POC Glucose 211 H 244 H Random Vancomycin 16.2 06/13/23 06/14/23 19:56 07:19 POC Glucose 165 H 152 H Random Vancomycin Microbiology Microbiology Results: Microbiology 06/11/23 19:24 Blood - Venous Blood Culture - Preliminary No growth after 48 hours. 06/11/23 18:16 Blood - Venous Blood Culture - Preliminary No growth after 48 hours. 06/11/23 Unknown Urine clean catch - Urine denny top Urine Culture - Final Klebsiella pneumoniae Procedures Date of Service Date of Service: 06/14/23 Assessment & Plan Assessment and plan (1) ESRD (end stage renal disease) on dialysis: Status: Acute Assessment and Plan: Mr. Mark Conte is a 72-year-old gentleman with past medical history of CAD s/p quintuple coronary artery bypass grafting in 2018 and stenting in 2022, HTN, HLD, insulin-dependent diabetes type 2, ESRD on hemodialysis M/W/F, spinal stenosis with lower extremity weakness who presented with dysuria which occurred after HD treatment. ESRD on hemodialysis M/W/F; Due HD tomorrow Renal restricted diet; No ESAs required for now C/W rest of current mangement for now Progress Note: Quality Stroke Does the patient have a stroke diagnosis?: No
[2023-06-14 11:15] LABS: Glucose, Whole Blood 144 mg/dL (60-115)
[2023-06-14] MEDS: 0.9 % Sodium Chloride Flush 3 ML SYRINGE IVFLUSH ×3 (12:56→21:27)
[2023-06-14] MEDS: polyethylene glycoL 3350 17 GM POWD.PACK PO (12:57)
--- NOTE | 2023-06-14 13:34 | P.PNUR_ITS ---
Subjective Subjective Date of Service: 06/14/23 Interval history: Seen today Still urinating with very slow stream Cystoscopy performed today at the bedside Circumcised Normal anterior and posterior urethra Trilobar hypertrophy Debris within bladder Small bladder tumors Discussed finding Recommend staying on finasteride with terazosin 4 week follow-up in office Will discuss combination prostate procedure in small tumor removal Physical Exam 2 Vital Signs: Vital Signs: Last Vital Signs Temp 97.1 F 06/14/23 07:49 Pulse 64 06/14/23 08:15 Resp 16 06/14/23 07:49 BP 120/58 L 06/14/23 08:15 Pulse Ox 96 06/14/23 08:15 O2 Del Method Room Air 06/14/23 07:49 BMI result Body Mass Index 28.0 Const: General: cooperative, healthy appearing, comfortable and no acute distress Orientation/consciousness: patient oriented x3 HEENT: Face and sinus: Yes normal facial exam Mouth: moist mucous membranes Neck: Neck: Yes normal visual inspection, Yes full ROM and Yes trachea midline Chest: Chest palpation & inspection: normal inspection of the chest Resp: Effort & Inspection: normal respiratory effort, able to speak in complete sentences and no respiratory distress GI: Inspection: Yes normal to inspection Back/Spine/Pelvis: Cervical Spine: normal cervical lordosis Thoracic/Lumbar Spine: thoracic and lumbar spine normal to inspection Skin: General skin exam: no rashes or lesions noted Neuro: General: patient oriented x3, gait normal, tone normal and moves all extremities Extrem: General: Yes normal to inspection and Yes capillary refill normal Urology Results Labs 06/13/23 05:23 06/13/23 05:23 Labs: Laboratory Results - last 24 hr 06/13/23 06/13/23 06/13/23 16:06 18:15 19:56 POC Glucose 244 H 165 H Random Vancomycin 16.2 06/14/23 06/14/23 07:19 11:12 POC Glucose 152 H 144 H Random Vancomycin Progress Note: A&P Assessment and plan (1) UTI (urinary tract infection): Status: Acute (2) Urinary retention with incomplete bladder emptying: Status: Acute Plan Medications Outpatient follow-up Time Spent With Patient Time: Total time managing care of this patient today ____ minutes. Progress Note: Quality Stroke Does the patient have a stroke diagnosis?: No
--- NOTE | 2023-06-14 14:44 | P.PNIM_ITS ---
Subjective Subjective Date of Service: 06/14/23 Interval History: Seen and evaluated No fever overnight having chronic colicky right sided abdominal pain Tolerating diet Cx growing Klebsiella Review of Systems Review of Systems: Yes all other systems are reviewed and are negative Physical Exam 2 Vital Signs: Vital Signs: Last Vital Signs Temp 97.1 F 06/14/23 07:49 Pulse 64 06/14/23 08:15 Resp 16 06/14/23 07:49 BP 120/58 L 06/14/23 08:15 Pulse Ox 96 06/14/23 08:15 O2 Del Method Room Air 06/14/23 07:49 BMI result Body Mass Index 28.0 Const: Other: Constitutional : Awake, interactive, not in distress Neck : Normal inspection, Supple Cardiovascular : RRR, no JVP, no lower extremity edema, Permacath in place Respiratory : good bilateral air entry, no crackles, wheezes or rhonchi Gastrointestinal: soft, lax, Normal bowel sounds, Non tender on abd exam , no surgical signs on rUQ Skin : Warm, Dry Neurological : Alert & oriented x3, No focal deficit Objective Data Active Medications Acetaminophen (Acetaminophen 325 Mg Tablet) 650 mg PO Q6H PRN PRN Reason: Pain, Mild (Pain Scale 1-3) Last Admin: 06/14/23 03:43 Dose: 650 mg Documented By: ALANA Acetaminophen (Acetaminophen Supp 650 Mg Supp.Rect) 650 mg DC Q6H PRN PRN Reason: Pain, Mild (Pain Scale 1-3) Amlodipine Besylate (Amlodipine Besylate 10 Mg Tablet) 10 mg PO DAILY [facility]; Protocol Last Admin: 06/14/23 08:01 Dose: 10 mg Documented By: RICO Aspirin (Aspirin Enteric Coated 81 Mg Tablet.) 81 mg PO DAILY [facility] Last Admin: 06/14/23 07:58 Dose: 81 mg Documented By: RICO Atorvastatin Calcium (Atorvastatin Calcium 80 Mg Tablet) 80 mg PO DAILY [facility] Last Admin: 06/14/23 08:00 Dose: 80 mg Documented By: RICO Belladonna Alkaloids/Phenobarbital (Phenobarb/Hyoscy/Atropine/Scop 10 Ml Elixir) 5 ml PO TID PRN PRN Reason: abdominal pain Last Admin: 06/14/23 08:35 Dose: 5 ml Documented By: RICO Clopidogrel Bisulfate (Clopidogrel Bisulfate 75 Mg Tablet) 75 mg PO DAILY [facility] Last Admin: 06/14/23 08:00 Dose: 75 mg Documented By: RICO Dextrose (Dextrose 50 % 25 Gm/50 Ml Syringe) 25 gm IVPUSH Q15M PRN; Protocol PRN Reason: per Hypoglycemia Standing Ord. Dorzolamide HCl (Dorzolamide Hcl 2 % Ophth Jyothi 10 Ml Drpbtl) 1 drop EYE-LEFT BID [facility] Last Admin: 06/14/23 08:37 Dose: 1 drop Documented By: RICO Fluticasone Propionate (Fluticasone Propionate Nasal 16 Gm [place]) 1 spray NOSTRIL-B Q12H PRN PRN Reason: Allergy Symptoms Furosemide (Furosemide 40 Mg Tablet) 40 mg PO DAILY [facility]; Protocol Last Admin: 06/14/23 08:01 Dose: 40 mg Documented By: RICO Glucose (Glucose Gel 15 Gm Gel..Gram.) 15 gm PO Q15M PRN; Protocol PRN Reason: per Hypoglycemia Standing Ord. Heparin Sodium (Porcine) (Heparin Sodium,Porcine 5,000 Unit/Ml Vial) 5,000 unit SUBCUT Q12H [facility] Last Admin: 06/14/23 07:57 Dose: 5,000 unit Documented By: RICO Ceftriaxone Sodium 1 gm/ (Sodium Chloride) 50 mls @ 100 mls/hr IV Q24H [facility] Last Infusion: 06/13/23 22:38 Dose: Infused Documented By: ALANA Insulin Human Lispro (Insulin Lispro 100 Unit/Ml 3 Ml Vial) 0 unit SUBCUT QIDACHS [facility]; Protocol Last Admin: 06/14/23 12:57 Dose: Not Given Documented By: RICO Non-Admin Reason: No Insulin Coverage Isosorbide Mononitrate (Isosorbide Mononitrate 30 Mg Tab.Er.24h) 30 mg PO DAILY [facility]; Protocol Last Admin: 06/14/23 07:59 Dose: 30 mg Documented By: RICO Latanoprost (Latanoprost 0.005 % Ophth Jyothi 2.5 Ml Drops) 1 drop EYE-BOTH BEDTIME [facility] Last Admin: 06/13/23 21:34 Dose: 1 drop Documented By: ALANA Melatonin (Melatonin 3 Mg Tablet) 6 mg PO BEDTIME PRN PRN Reason: Insomnia Metoprolol Succinate (Metoprolol Succinate Er 100 Mg Tab.Er.24h) 100 mg PO DAILY [facility]; Protocol Last Admin: 06/14/23 08:00 Dose: 100 mg Documented By: RICO Morphine Sulfate (Morphine Sulfate 2 Mg/Ml Cartridge) 2 mg IVPUSH Q4H PRN; Protocol PRN Reason: Pain, Severe (Pain Scale 7-10) Last Admin: 06/13/23 05:31 Dose: 2 mg Documented By: ALANA Nitroglycerin (Nitroglycerin 2 % Oint 1 Gm Packet) 1 inch TRANSDERMA RQ6H WHILE AWAKE PRN PRN Reason: Angina Omeprazole (Omeprazole 20 Mg Capsule.Dr) 20 mg PO DAILY@0630 [facility] Last Admin: 06/14/23 05:45 Dose: 20 mg Documented By: ALANA Ondansetron HCl (Ondansetron Hcl 4 Mg/2 Ml Vial) 4 mg IVPUSH Q4H PRN PRN Reason: Nausea and Vomiting Last Admin: 06/12/23 22:49 Dose: 4 mg Documented By: ALANA Polyethylene Glycol (Polyethylene Glycol 3350 17 Gm Powd.Pack) 17 gm PO DAILY [facility] Last Admin: 06/14/23 12:57 Dose: 17 gm Documented By: RICO Sertraline HCl (Sertraline Hcl 50 Mg Tablet) 50 mg PO DAILY [facility] Last Admin: 06/14/23 08:01 Dose: Not Given Documented By: RICO Non-Admin Reason: Patient Refused Simethicone (Simethicone 80 Mg Tab.Chew) 80 mg PO QIDWMHS [facility] Last Admin: 06/14/23 12:58 Dose: Not Given Documented By: RICO Non-Admin Reason: Patient Refused Sodium Chloride (0.9 % Sodium Chloride Flush 3 Ml Syringe) 3 ml IVFLUSH QSHIFT [facility] Last Admin: 06/14/23 12:56 Dose: 3 ml Documented By: RICO Sucralfate (Sucralfate 1 Gm Tablet) 1 gm PO BID [facility] Last Admin: 06/14/23 07:59 Dose: 1 gm Documented By: RICO Tamsulosin HCl (Tamsulosin Hcl 0.4 Mg Capsule) 0.8 mg PO DAILY [facility] Last Admin: 06/14/23 07:58 Dose: 0.8 mg Documented By: RICO Timolol Maleate (Timolol Maleate 0.5 % Oph Jyothi 5 Ml Drbtl) 1 drop EYE-BOTH DAILY [facility] Last Admin: 06/14/23 08:39 Dose: 1 drop Documented By: RICO Vitamin D (Cholecalciferol (Vitamin D3) 25 Mcg Tablet) 50 mcg PO DAILY [facility] Last Admin: 06/14/23 07:59 Dose: 50 mcg Documented By: RICO Labs 06/13/23 05:23 06/13/23 05:23 Labs: Laboratory Results - last 24 hr 06/13/23 06/13/23 06/13/23 16:06 18:15 19:56 POC Glucose 244 H 165 H Random Vancomycin 16.2 06/14/23 06/14/23 07:19 11:12 POC Glucose 152 H 144 H Random Vancomycin Microbiology Microbiology Results: Microbiology 06/11/23 19:24 Blood Culture - Preliminary Blood - Venous No growth after 48 hours. 06/11/23 18:16 Blood Culture - Preliminary Blood - Venous No growth after 48 hours. Assessment and Plan (1) Urinary retention with incomplete bladder emptying: Status: Acute (2) ESRD (end stage renal disease) on dialysis: Status: Acute (3) Acute metabolic encephalopathy: Status: Acute (4) UTI (urinary tract infection): Status: Acute Plan a 72-year-old male with a PMH significant for?CAD s/p quintuple coronary artery bypass grafting in 2017 and stenting in 2022, HTN, HLD, insulin-dependent diabetes type 2, ESRD on hemodialysis M/W/F, spinal stenosis with lower extremity weakness and unsteady gait who presents to the ED with?dysuria and increased urgency since last night. Pt will be admitted to the hospital for treatment further evaluation of sepsis in the setting of UTI. Acute metabolic encephalopathy 2/2 sepsis d/t UTI Encephalopathy resolved Urine cultures growing Klebsiella CT abd\pelvis showing enlarge prostate w thickened wall bladder PSA elevated Urology to do Cystoscopy this afternoon DC Vancomycin continue IV ceftriaxone, started 06/11/2023 Follow CBC Abdominal pain Chronic, negative GB for stones likely IBS, start symptomatic meds Plan to follow with GI as outpatient ESRD hemodialysis M/W/F Nephrology following CAD Continue aspirin, statin, clopidogrel HTN Continue home meds Insulin-dependent diabetes type 2 Hold degludec SSI Gout Continue allopurinol Full Code DVT Prophylaxis: Heparin Pt will require a hospitalization overnight for treatment of? sepsis d/t UTI with IV antibiotics and close monitoring pending urology procedure Time Spent With Patient Time: Total time managing care of this patient today ____ minutes. Quality Stroke Does the patient have a stroke diagnosis?: No VTE Prior VTE?: No VTE Risk Level:: Medical - moderate - high VTE Device Contraindication: Treatment Not Indicated VTE Drug Contraindication: N/A - Med Ordered
[2023-06-14 15:53] VITALS: BP 124/59; PULSE 63; RESP 20; TEMP 36.1; O2SAT 95
[2023-06-14 16:20] LABS: Glucose, Whole Blood 217 mg/dL (60-115)
[2023-06-14 19:50] VITALS: BP 124/57; PULSE 62; RESP 18; TEMP 36.3; O2SAT 93
[2023-06-14] MEDS: cefTRIAXone sodium 1 GM in 0.9 % Sodium Chloride 50 ML IV (19:58)
[2023-06-14] MEDS: Latanoprost 0.005 % Ophth Sol 2.5 ML DROPS 1 DROP EYE-BOTH (20:00)
--- NOTE | 2023-06-14 20:10 | PC.NURSE ---
Assumed care at 07:00. A&O x4. Reports RUQ pain, sharp and dull at times, constant; medicated with Katlin GIBSON, with some effect, MD notified and at bedside. Patient refusing simethicone and refusing sertraline. Appears depressed or flat affect. OOB to chair today and ambulated to . Urology in and bedside cystoscopy today. Patient tolerated well and OOB to urinate afterward with improvement of dysuria, was bladderscanned before this for 193 in morning.
[2023-06-14 20:47] LABS: Glucose, Whole Blood 236 mg/dL (60-115)
[2023-06-15 04:00] VITALS: BP 110/56; PULSE 60; RESP 16; TEMP 36.2; O2SAT 94
[2023-06-15] MEDS: Omeprazole 20 MG CAPSULE.DR PO (05:21)
[2023-06-15 07:41] LABS: Glucose, Whole Blood 142 mg/dL (60-115)
--- NOTE | 2023-06-15 08:39 | PM.UROCN ---
History of Present Illness Consult details Consult date: 06/12/23 Narrative: cc: Bladder thickening with large prostate 72-year-old male Presents with inability to urinate and weak stream. Background CAD with bypass, insulin-dependent diabetes, end-stage renal failure on hemodialysis Family states mental status changes Recent admission to [facility] in January complicated by NSTEMI and elevated troponins with cardiac catheterization double stent placement. CKD 4 at that point in time. Contrast from catheterization triggered worsening renal failure and resolving dialysis. Febrile to 102 in ED. Urine Klebsiella positive CT - mild diffuse bladder wall thickening. The prostate gland is significantly enlarged measuring 6.9 cm in maximum transverse dimensio Suggest bedside cystoscopy while inpatient Does state has adequate urination despite dialysis. Minimizes chance of pyocystis. Review of Systems Constitutional: Constitutional: Reports as per HPI and Reports no additional constitutional complaints Cardiovascular: Cardiovascular: Reports as per HPI and Reports no additional cardiovascular complaints Respiratory: Respiratory: Reports as per HPI and Reports no additional respiratory complaints Gastrointestinal: Gastrointestinal: Reports as per HPI and Reports no additional gastrointestinal complaints Genitourinary: Genitourinary: Reports as per HPI Musculoskeletal: Musculoskeletal: Reports no additional musculoskeletal complaints and Reports as per HPI Neurologic: Reports system reviewed and no additional complaints, except as documented and Reports as per HPI [facility] Surgical History Surgical History History of tonsillectomy Social History Social History Household Members: Spouse Housing: House Do you presently have visiting nurse or other home services: No Alcohol intake: never Patient Tobacco Use Status: Former Tobacco user Cigarette Packs Per Day: 1 Years Smoked: 8 e-Cigarette/Vaping Use: Never Used Second Hand Smoke Exposure: No Advance Directives Date on File: 01/17/23 service: No Current occupational status: retired Cognitive needs: No Hearing needs: No Vision needs: No Meds Allergies Allergy/AdvReac Type Severity Reaction Status Date / Time liraglutide [From Victoza] Allergy Intermediate Hives Verified 06/11/23 17:44 Seasonal Allergies AdvReac Intermediate Itchy Eyes Verified 06/11/23 17:44 demoral Allergy Intermediate Hives Uncoded 04/12/23 08:29 Active Medications: Current Medications Acetaminophen (Acetaminophen 325 Mg Tablet) 650 mg PO Q6H PRN PRN Reason: Pain, Mild (Pain Scale 1-3) Last Admin: 06/14/23 03:43 Dose: 650 mg Acetaminophen (Acetaminophen Supp 650 Mg Supp.Rect) 650 mg MA Q6H PRN PRN Reason: Pain, Mild (Pain Scale 1-3) Amlodipine Besylate (Amlodipine Besylate 10 Mg Tablet) 10 mg PO DAILY [facility]; Protocol Last Admin: 06/14/23 08:01 Dose: 10 mg Aspirin (Aspirin Enteric Coated 81 Mg Tablet.Dr) 81 mg PO DAILY [facility] Last Admin: 06/14/23 07:58 Dose: 81 mg Atorvastatin Calcium (Atorvastatin Calcium 80 Mg Tablet) 80 mg PO DAILY [facility] Last Admin: 06/14/23 08:00 Dose: 80 mg Belladonna Alkaloids/Phenobarbital (Phenobarb/Hyoscy/Atropine/Scop 10 Ml Elix[place]) 5 ml PO TID PRN PRN Reason: abdominal pain Last Admin: 06/14/23 08:35 Dose: 5 ml Clopidogrel Bisulfate (Clopidogrel Bisulfate 75 Mg Tablet) 75 mg PO DAILY [facility] Last Admin: 06/14/23 08:00 Dose: 75 mg Dextrose (Dextrose 50 % 25 Gm/50 Ml Syringe) 25 gm IVPUSH Q15M PRN; Protocol PRN Reason: per Hypoglycemia Standing Ord. Dorzolamide HCl (Dorzolamide Hcl 2 % Ophth Jyothi 10 Ml Drpbtl) 1 drop EYE-LEFT BID [facility] Last Admin: 06/14/23 20:00 Dose: 1 drop Fluticasone Propionate (Fluticasone Propionate Nasal 16 Gm [place]) 1 spray NOSTRIL-B Q12H PRN PRN Reason: Allergy Symptoms Furosemide (Furosemide 40 Mg Tablet) 40 mg PO DAILY [facility]; Protocol Last Admin: 06/14/23 08:01 Dose: 40 mg Glucose (Glucose Gel 15 Gm Gel..Gram.) 15 gm PO Q15M PRN; Protocol PRN Reason: per Hypoglycemia Standing Ord. Heparin Sodium (Porcine) (Heparin Sodium,Porcine 5,000 Unit/Ml Vial) 5,000 unit SUBCUT Q12H [facility] Last Admin: 06/14/23 20:00 Dose: 5,000 unit Ceftriaxone Sodium 1 gm/ (Sodium Chloride) 50 mls @ 100 mls/hr IV Q24H [facility] Last Infusion: 06/14/23 20:33 Dose: Infused Insulin Human Lispro (Insulin Lispro 100 Unit/Ml 3 Ml Vial) 0 unit SUBCUT QIDACHS [facility]; Protocol Last Admin: 06/15/23 07:53 Dose: Not Given Isosorbide Mononitrate (Isosorbide Mononitrate 30 Mg Tab.Er.24h) 30 mg PO DAILY [facility]; Protocol Last Admin: 06/14/23 07:59 Dose: 30 mg Latanoprost (Latanoprost 0.005 % Ophth Jyothi 2.5 Ml Drops) 1 drop EYE-BOTH BEDTIME [facility] Last Admin: 06/14/23 20:00 Dose: 1 drop Melatonin (Melatonin 3 Mg Tablet) 6 mg PO BEDTIME PRN PRN Reason: Insomnia Metoprolol Succinate (Metoprolol Succinate Er 100 Mg Tab.Er.24h) 100 mg PO DAILY [facility]; Protocol Last Admin: 06/14/23 08:00 Dose: 100 mg Morphine Sulfate (Morphine Sulfate 2 Mg/Ml Cartridge) 2 mg IVPUSH Q4H PRN; Protocol PRN Reason: Pain, Severe (Pain Scale 7-10) Last Admin: 06/13/23 05:31 Dose: 2 mg Nitroglycerin (Nitroglycerin 2 % Oint 1 Gm Packet) 1 inch TRANSDERMA RQ6H WHILE AWAKE PRN PRN Reason: Angina Omeprazole (Omeprazole 20 Mg Capsule.Dr) 20 mg PO DAILY@0630 [facility] Last Admin: 06/15/23 05:21 Dose: 20 mg Ondansetron HCl (Ondansetron Hcl 4 Mg/2 Ml Vial) 4 mg IVPUSH Q4H PRN PRN Reason: Nausea and Vomiting Last Admin: 06/12/23 22:49 Dose: 4 mg Polyethylene Glycol (Polyethylene Glycol 3350 17 Gm Powd.Pack) 17 gm PO DAILY [facility] Last Admin: 06/14/23 12:57 Dose: 17 gm Sertraline HCl (Sertraline Hcl 50 Mg Tablet) 50 mg PO DAILY [facility] Last Admin: 06/14/23 08:01 Dose: Not Given Simethicone (Simethicone 80 Mg Tab.Chew) 80 mg PO QIDWMHS [facility] Last Admin: 06/14/23 19:59 Dose: Not Given Sodium Chloride (0.9 % Sodium Chloride Flush 3 Ml Syringe) 3 ml IVFLUSH QSHIFT [facility] Last Admin: 06/14/23 21:27 Dose: 3 ml Sucralfate (Sucralfate 1 Gm Tablet) 1 gm PO BID [facility] Last Admin: 06/14/23 20:00 Dose: 1 gm Tamsulosin HCl (Tamsulosin Hcl 0.4 Mg Capsule) 0.8 mg PO DAILY [facility] Last Admin: 06/14/23 07:58 Dose: 0.8 mg Timolol Maleate (Timolol Maleate 0.5 % Oph Jyothi 5 Ml Drbtl) 1 drop EYE-BOTH DAILY [facility] Last Admin: 06/14/23 08:39 Dose: 1 drop Vitamin D (Cholecalciferol (Vitamin D3) 25 Mcg Tablet) 50 mcg PO DAILY [facility] Last Admin: 06/14/23 07:59 Dose: 50 mcg Home Medications Medication Instructions Recorded Confirmed Last Taken Type aspirin 81 mg tablet,delayed 81 mg PO DAILY 02/10/22 06/12/23 06/11/23 History release atorvastatin 80 mg tablet 80 mg PO DAILY 02/10/22 06/12/23 06/11/23 History cholecalciferol (vitamin D3) 50 50 mcg PO DAILY 02/10/22 06/12/23 06/11/23 History mcg (2,000 unit) capsule insulin degludec 100 unit/mL (3 17 unit subcut BID 02/10/22 06/12/23 06/11/23 History mL) subcutaneous pen (Tresiba FlexTouch U-100 insulin) furosemide 40 mg tablet 40 mg PO DAILY 01/17/23 06/12/23 06/11/23 History latanoprost 0.005 % eye drops 1 drp ophthalmic (eye) BEDTIME 01/17/23 06/12/23 06/11/23 History timolol maleate 0.5 % eye drops 1 drp ophthalmic (eye) DAILY 01/17/23 06/12/23 06/11/23 History amlodipine 10 mg tablet 10 mg PO DAILY 02/22/23 06/12/23 06/11/23 History clopidogrel 75 mg tablet 75 mg PO DAILY 02/22/23 06/12/23 06/11/23 History metoprolol succinate 100 mg 100 mg PO DAILY 02/22/23 06/12/23 06/11/23 History tablet,extended release 24 hr dorzolamide 2 % eye drops 1 drp ophthalmic-Left Q12H 06/12/23 06/12/23 06/11/23 History fluticasone propionate 50 1 spray intranasal Q12H PRN 06/12/23 06/12/23 Unknown History mcg/actuation nasal Allergy Symptoms spray,suspension (Flonase Allergy Relief) isosorbide mononitrate 30 mg 30 mg PO DAILY 06/12/23 06/12/23 06/11/23 History tablet,extended release 24 hr nitroglycerin 2 % transdermal 1 inch transdermal RQ6H WHILE 06/12/23 06/12/23 Unknown History ointment (Nitro-Bid) AWAKE PRN Angina pantoprazole 40 mg tablet,delayed 40 mg PO DAILY@0630 06/12/23 06/12/23 06/11/23 History release sertraline 50 mg tablet 50 mg PO DAILY 06/12/23 06/12/23 06/11/23 History Physical Exam Vital Signs: Vital Signs: Last Vital Signs Temp 97.1 F 06/15/23 04:00 Pulse 60 06/15/23 04:00 Resp 16 06/15/23 04:00 BP 110/56 L 06/15/23 04:00 Pulse Ox 94 06/15/23 04:00 O2 Del Method Room Air 06/15/23 04:00 BMI result Body Mass Index 28.0 Const: General: cooperative, healthy appearing, comfortable and no acute distress Orientation/consciousness: patient oriented x3 HEENT: Face and sinus: Yes normal facial exam Mouth: moist mucous membranes Neck: Neck: Yes normal visual inspection, Yes full ROM and Yes trachea midline Chest: Chest palpation & inspection: normal inspection of the chest Resp: Effort & Inspection: normal respiratory effort, able to speak in complete sentences and no respiratory distress GI: Inspection: Yes normal to inspection Back/Spine/Pelvis: Cervical Spine: normal cervical lordosis Thoracic/Lumbar Spine: thoracic and lumbar spine normal to inspection Skin: General skin exam: no rashes or lesions noted Neuro: General: patient oriented x3, tone normal and moves all extremities Extrem: General: Yes normal to inspection and Yes capillary refill normal Results Labs 06/13/23 05:23 06/13/23 05:23 Labs: Abnormal lab results 06/14/23 06/14/23 06/14/23 Range/Units 11:12 16:10 20:39 POC Glucose 144 H 217 H 236 H (60-115) mg/dL 06/15/23 Range/Units 07:36 POC Glucose 142 H (60-115) mg/dL Urine 06/11/23 Range/Units 19:24 Urine Color Yellow Urine Appearance Turbid Urine pH 5.0 (5.0-9.0) Ur Specific [place] 1.015 (1.005-1.025) Urine Protein 300 (3+) H (Neg-Trace) mg/dL Urine Glucose (UA) Negative (Negative) mg/dL All other labs normal. Assessment and Plan (1) ESRD (end stage renal disease) on dialysis: Status: Acute (2) UTI (urinary tract infection): Qualifiers: Urinary tract infection type: acute cystitis Hematuria presence: without hematuria Qualified Code(s): N30.00 - Acute cystitis without hematuria Status: Acute (3) Bladder outlet obstruction: Status: Acute Plan Start prostate medications Time Spent With Patient Time: Total time managing care of this patient today ____ minutes. Procedures Date of Service Date of Service: 06/15/23
--- NOTE | 2023-06-15 09:54 | P.PNIM_ITS ---
Subjective Subjective Date of Service: 06/15/23 Interval History: cramp, incomplete empyuting Physical Exam 2 Vital Signs: Vital Signs: Last Vital Signs Temp 97.1 F 06/15/23 04:00 Pulse 60 06/15/23 04:00 Resp 16 06/15/23 04:00 BP 110/56 L 06/15/23 04:00 Pulse Ox 94 06/15/23 04:00 O2 Del Method Room Air 06/15/23 04:00 BMI result Body Mass Index 28.0 Const: General: cooperative, healthy appearing, comfortable and no acute distress Orientation/consciousness: patient oriented x3 HEENT: Face and sinus: Yes normal facial exam Mouth: moist mucous membranes Neck: Neck: Yes normal visual inspection, Yes full ROM and Yes trachea midline Chest: Chest palpation & inspection: normal inspection of the chest Resp: Effort & Inspection: normal respiratory effort, able to speak in complete sentences and no respiratory distress GI: Inspection: Yes normal to inspection Back/Spine/Pelvis: Cervical Spine: normal cervical lordosis Thoracic/Lumbar Spine: thoracic and lumbar spine normal to inspection Skin: General skin exam: no rashes or lesions noted Neuro: General: patient oriented x3, tone normal and moves all extremities Extrem: General: Yes normal to inspection and Yes capillary refill normal Objective Data Active Medications Acetaminophen (Acetaminophen 325 Mg Tablet) 650 mg PO Q6H PRN PRN Reason: Pain, Mild (Pain Scale 1-3) Last Admin: 06/14/23 03:43 Dose: 650 mg Documented By: ALANA Acetaminophen (Acetaminophen Supp 650 Mg Supp.Rect) 650 mg HI Q6H PRN PRN Reason: Pain, Mild (Pain Scale 1-3) Amlodipine Besylate (Amlodipine Besylate 10 Mg Tablet) 10 mg PO DAILY [facility]; Protocol Last Admin: 06/14/23 08:01 Dose: 10 mg Documented By: RICO Aspirin (Aspirin Enteric Coated 81 Mg Tablet.) 81 mg PO DAILY [facility] Last Admin: 06/14/23 07:58 Dose: 81 mg Documented By: RICO Atorvastatin Calcium (Atorvastatin Calcium 80 Mg Tablet) 80 mg PO DAILY [facility] Last Admin: 06/14/23 08:00 Dose: 80 mg Documented By: RICO Belladonna Alkaloids/Phenobarbital (Phenobarb/Hyoscy/Atropine/Scop 10 Ml Elixir) 5 ml PO TID PRN PRN Reason: abdominal pain Last Admin: 06/14/23 08:35 Dose: 5 ml Documented By: RICO Clopidogrel Bisulfate (Clopidogrel Bisulfate 75 Mg Tablet) 75 mg PO DAILY [facility] Last Admin: 06/14/23 08:00 Dose: 75 mg Documented By: RICO Dextrose (Dextrose 50 % 25 Gm/50 Ml Syringe) 25 gm IVPUSH Q15M PRN; Protocol PRN Reason: per Hypoglycemia Standing Ord. Dorzolamide HCl (Dorzolamide Hcl 2 % Ophth Jyothi 10 Ml Drpbtl) 1 drop EYE-LEFT BID [facility] Last Admin: 06/14/23 20:00 Dose: 1 drop Documented By: SERENE Finasteride (Finasteride 5 Mg Tablet) 5 mg PO DAILY [facility] Fluticasone Propionate (Fluticasone Propionate Nasal 16 Gm [place]) 1 spray NOSTRIL-B Q12H PRN PRN Reason: Allergy Symptoms Furosemide (Furosemide 40 Mg Tablet) 40 mg PO DAILY [facility]; Protocol Last Admin: 06/14/23 08:01 Dose: 40 mg Documented By: RICO Glucose (Glucose Gel 15 Gm Gel..Gram.) 15 gm PO Q15M PRN; Protocol PRN Reason: per Hypoglycemia Standing Ord. Heparin Sodium (Porcine) (Heparin Sodium,Porcine 5,000 Unit/Ml Vial) 5,000 unit SUBCUT Q12H [facility] Last Admin: 06/14/23 20:00 Dose: 5,000 unit Documented By: SERENE Ceftriaxone Sodium 1 gm/ (Sodium Chloride) 50 mls @ 100 mls/hr IV Q24H [facility] Last Infusion: 06/14/23 20:33 Dose: Infused Documented By: SERENE Insulin Human Lispro (Insulin Lispro 100 Unit/Ml 3 Ml Vial) 0 unit SUBCUT QIDACHS [facility]; Protocol Last Admin: 06/15/23 07:53 Dose: Not Given Documented By: RICO Non-Admin Reason: No Insulin Coverage Isosorbide Mononitrate (Isosorbide Mononitrate 30 Mg Tab.Er.24h) 30 mg PO DAILY [facility]; Protocol Last Admin: 06/14/23 07:59 Dose: 30 mg Documented By: RICO Latanoprost (Latanoprost 0.005 % Ophth Jyothi 2.5 Ml Drops) 1 drop EYE-BOTH BEDTIME [facility] Last Admin: 06/14/23 20:00 Dose: 1 drop Documented By: SERENE Melatonin (Melatonin 3 Mg Tablet) 6 mg PO BEDTIME PRN PRN Reason: Insomnia Metoprolol Succinate (Metoprolol Succinate Er 100 Mg Tab.Er.24h) 100 mg PO DAILY [facility]; Protocol Last Admin: 06/14/23 08:00 Dose: 100 mg Documented By: RICO Morphine Sulfate (Morphine Sulfate 2 Mg/Ml Cartridge) 2 mg IVPUSH Q4H PRN; Protocol PRN Reason: Pain, Severe (Pain Scale 7-10) Last Admin: 06/13/23 05:31 Dose: 2 mg Documented By: ALANA Nitroglycerin (Nitroglycerin 2 % Oint 1 Gm Packet) 1 inch TRANSDERMA RQ6H WHILE AWAKE PRN PRN Reason: Angina Omeprazole (Omeprazole 20 Mg Capsule.Dr) 20 mg PO DAILY@0630 [facility] Last Admin: 06/15/23 05:21 Dose: 20 mg Documented By: SERENE Ondansetron HCl (Ondansetron Hcl 4 Mg/2 Ml Vial) 4 mg IVPUSH Q4H PRN PRN Reason: Nausea and Vomiting Last Admin: 06/12/23 22:49 Dose: 4 mg Documented By: ALANA Polyethylene Glycol (Polyethylene Glycol 3350 17 Gm Powd.Pack) 17 gm PO DAILY [facility] Last Admin: 06/14/23 12:57 Dose: 17 gm Documented By: RICO Sertraline HCl (Sertraline Hcl 50 Mg Tablet) 50 mg PO DAILY [facility] Last Admin: 06/14/23 08:01 Dose: Not Given Documented By: RICO Non-Admin Reason: Patient Refused Simethicone (Simethicone 80 Mg Tab.Chew) 80 mg PO QIDWMHS [facility] Last Admin: 06/14/23 19:59 Dose: Not Given Documented By: SERENE Non-Admin Reason: Patient Refused Sodium Chloride (0.9 % Sodium Chloride Flush 3 Ml Syringe) 3 ml IVFLUSH QSHIFT [facility] Last Admin: 06/14/23 21:27 Dose: 3 ml Documented By: SERENE Sucralfate (Sucralfate 1 Gm Tablet) 1 gm PO BID [facility] Last Admin: 06/14/23 20:00 Dose: 1 gm Documented By: SERENE Tamsulosin HCl (Tamsulosin Hcl 0.4 Mg Capsule) 0.8 mg PO DAILY [facility] Last Admin: 06/14/23 07:58 Dose: 0.8 mg Documented By: RICO Timolol Maleate (Timolol Maleate 0.5 % Oph Jyothi 5 Ml Drbtl) 1 drop EYE-BOTH DAILY [facility] Last Admin: 06/14/23 08:39 Dose: 1 drop Documented By: RICO Vitamin D (Cholecalciferol (Vitamin D3) 25 Mcg Tablet) 50 mcg PO DAILY [facility] Last Admin: 06/14/23 07:59 Dose: 50 mcg Documented By: RICO Labs 06/13/23 05:23 06/13/23 05:23 Labs: Laboratory Results - last 24 hr 06/14/23 06/14/23 06/14/23 11:12 16:10 20:39 POC Glucose 144 H 217 H 236 H 06/15/23 07:36 POC Glucose 142 H Assessment and Plan (1) Urinary retention with incomplete bladder emptying: Status: Acute (2) ESRD (end stage renal disease) on dialysis: Status: Acute (3) Acute metabolic encephalopathy: Status: Acute (4) UTI (urinary tract infection): Status: Acute Plan 72-year-old male with a PMH significant for?CAD s/p quintuple coronary artery bypass grafting in 2017 and stenting in 2022, HTN, HLD, insulin-dependent diabetes type 2, ESRD on hemodialysis M/W/F, spinal stenosis with lower extremity weakness and unsteady gait who presented to the ED with?dysuria and increased urgency Acute metabolic encephalopathy 2/2 sepsis d/t UTI Encephalopathy resolved Urine cultures growing Klebsiella CT abd\pelvis showing enlarge prostate w thickened wall bladder PSA elevated Urology performed Cystoscopy (see report) continue IV ceftriaxone, started 06/11/2023 Follow CBC BPH flomax, proscar pvr Abdominal pain Chronic, negative GB for stones likely IBS, start symptomatic meds Plan to follow with GI as outpatient ESRD hemodialysis M/W/F Nephrology following CAD Continue aspirin, statin, clopidogrel HTN Continue home meds Insulin-dependent diabetes type 2 Hold degludec SSI Gout Continue allopurinol Full Code DVT Prophylaxis: Heparin reason for continued hospitalization:incomplete blader emptying, uncontrolled abd crmaping Time Spent With Patient Time: Total time managing care of this patient today ____ minutes. Quality Stroke Does the patient have a stroke diagnosis?: No VTE Prior VTE?: No VTE Risk Level:: Medical - moderate - high VTE Device Contraindication: Treatment Not Indicated VTE Drug Contraindication: N/A - Med Ordered
--- NOTE | 2023-06-15 10:41 | P.PNNP_ITS ---
Subjective Subjective Date of Service: 06/15/23 Interval history: Seen on HD. Urology following. Hemodynamics stable on HD Physical Exam 2 Vital Signs: Vital Signs: Last Vital Signs Temp 97.1 F 06/15/23 04:00 Pulse 60 06/15/23 04:00 Resp 16 06/15/23 04:00 BP 110/56 L 06/15/23 04:00 Pulse Ox 94 06/15/23 04:00 O2 Del Method Room Air 06/15/23 04:00 BMI result Body Mass Index 28.0 Const: General: no acute distress Orientation/consciousness: patient oriented x3 Eyes: EOM: EOMs intact bilaterally Resp: Auscultation: diminished lung sounds Cardio: Rate: regular rate GI: Palpation (GI): Soft to palpation Neuro: General: patient oriented x3 and moves all extremities Objective Data Labs 06/13/23 05:23 06/13/23 05:23 Labs: Laboratory Results - last 24 hr 06/14/23 06/14/23 06/14/23 11:12 16:10 20:39 POC Glucose 144 H 217 H 236 H 06/15/23 07:36 POC Glucose 142 H Microbiology Microbiology Results: Microbiology 06/11/23 19:24 Blood - Venous Blood Culture - Preliminary No growth after 48 hours. 06/11/23 18:16 Blood - Venous Blood Culture - Preliminary No growth after 48 hours. 06/11/23 Unknown Urine clean catch - Urine denny top Urine Culture - Final Klebsiella pneumoniae Procedures Date of Service Date of Service: 06/15/23 Assessment & Plan Assessment and plan (1) ESRD (end stage renal disease) on dialysis: Status: Acute Assessment and Plan: Mr. Mark Conte is a 72-year-old gentleman with past medical history of CAD s/p quintuple coronary artery bypass grafting in 2018 and stenting in 2022, HTN, HLD, insulin-dependent diabetes type 2, ESRD on hemodialysis M/W/F, spinal stenosis with lower extremity weakness who presented with dysuria which occurred after HD treatment. ESRD on hemodialysis M/W/F; Seen on HD Renal restricted diet; No ESAs required for now C/W rest of current mangement for now Progress Note: Quality Stroke Does the patient have a stroke diagnosis?: No
[2023-06-15 10:52] VITALS: BP 156/71; PULSE 67; RESP 18; TEMP 36.6; O2SAT 97
[2023-06-15] MEDS: Aspirin Enteric Coated 81 MG TABLET.DR PO (10:54)
[2023-06-15] MEDS: Finasteride 5 MG TABLET PO (10:55)
[2023-06-15] MEDS: Clopidogrel Bisulfate 75 MG TABLET PO (10:55)
[2023-06-15] MEDS: Tamsulosin HCL 0.4 MG CAPSULE 0.8 MG PO (10:56)
[2023-06-15] MEDS: Sucralfate 1 GM TABLET PO ×2 (10:56→20:38)
[2023-06-15] MEDS: Heparin Sodium,Porcine 5,000 UNIT/ML VIAL 5000 UNIT SUBCUT ×2 (10:56→20:39)
[2023-06-15] MEDS: Cholecalciferol (Vitamin D3) 25 MCG TABLET 50 MCG PO (10:57)
[2023-06-15] MEDS: Atorvastatin Calcium 80 MG TABLET PO (10:57)
[2023-06-15] MEDS: polyethylene glycoL 3350 17 GM POWD.PACK PO (10:58)
[2023-06-15] MEDS: Isosorbide Mononitrate 30 MG TAB.ER.24H PO (10:59)
[2023-06-15] MEDS: Furosemide 40 MG TABLET PO (11:00)
[2023-06-15] MEDS: amLODIPine Besylate 10 MG TABLET PO (11:00)
[2023-06-15] MEDS: Metoprolol Succinate ER 100 MG TAB.ER.24H PO (11:00)
[2023-06-15] MEDS: 0.9 % Sodium Chloride Flush 3 ML SYRINGE IVFLUSH ×3 (11:01→20:39)
[2023-06-15] MEDS: Dorzolamide HCl 2 % Ophth Sol 10 ML DRPBTL 1 DROP EYE-LEFT ×2 (11:02→20:51)
[2023-06-15] MEDS: timoloL maleate 0.5 % Oph Sol 5 ML DRBTL 1 DROP EYE-BOTH (11:02)
[2023-06-15] MEDS: PHENobarb/Hyoscy/Atropine/Scop 10 ML ELIXIR 5 ML PO ×2 (11:16→19:11)
[2023-06-15 11:21] LABS: Glucose, Whole Blood 149 mg/dL (60-115)
--- NOTE | 2023-06-15 13:54 | MHC.CM.PN ---
per rounds pt not ready for c dc plan remains home no services
[2023-06-15 15:26] VITALS: BP 116/56; PULSE 68; RESP 18; TEMP 36.4; O2SAT 93
[2023-06-15 16:10] LABS: Glucose, Whole Blood 170 mg/dL (60-115)
[2023-06-15] MEDS: Insulin Lispro 100 UNIT/ML 3 ML VIAL SUBCUT ×2 (17:25→20:51)
[2023-06-15 20:00] VITALS: BP 120/59; PULSE 66; RESP 16; TEMP 36.6; O2SAT 92
--- NOTE | 2023-06-15 20:19 | PC.NURSE ---
Assumed care at 07:00. Patient A&O, pleasant and cooperative with care. Refused his sertraline and simethicone today. Patient at HD today, had 200 ccs back. Patient tolerated well. Fistula in left wrist with +thrill and +bruit. Patient with continued abdominal pain RUQ, elixer with modest effect, Pain increases after meals, about 5/10 sometimes sharp, sometimes dull. Patient ate poorly but improved from yesterday, soup at all meals. Oliguria, one episode of trying to void with dysuria continued, straining to void, dribbling stream, very small amount out, and then bladderscanned for PVR of 71 ccs. Continueing to monitor.
[2023-06-15 20:36] LABS: Glucose, Whole Blood 214 mg/dL (60-115)
[2023-06-15] MEDS: cefTRIAXone sodium 1 GM in 0.9 % Sodium Chloride 50 ML IV (20:37)
[2023-06-15] MEDS: Latanoprost 0.005 % Ophth Sol 2.5 ML DROPS 1 DROP EYE-BOTH (20:51)
[2023-06-16] MEDS: PHENobarb/Hyoscy/Atropine/Scop 10 ML ELIXIR 5 ML PO (03:06)
[2023-06-16 04:00] VITALS: BP 129/61; PULSE 67; RESP 18; TEMP 36.3; O2SAT 97
[2023-06-16] MEDS: Omeprazole 20 MG CAPSULE.DR PO (05:09)
[2023-06-16 05:35] LABS: Hematocrit 34.9 % (42.0-52.0); Hemoglobin 11.6 g/dl (14.0-18.0); Mean Corpuscular HGB Conc 33.2 g/dl (31.0-36.0); Mean Corpuscular Hemoglobin 27.3 pg (27.0-33.0); Mean Corpuscular Volume 82.1 fL (80.0-98.0); Mean Platelet Volume 10.3 fL (9.4-12.4); Platelet Count 153 X10*3/uL (160-400); Red Blood Count 4.25 X10*6/uL (4.60-5.80); Red Cell Distribution Width 12.9 % (11.0-16.0); White Blood Count 6.2 X10*3/uL (4.8-10.8)
[2023-06-16 05:55] LABS: Anion Gap 13 (12-20); Blood Urea Nitrogen 45 mg/dL (9-16); Calcium 8.5 mg/dL (8.4-10.2); Carbon Dioxide 22 mmol/L (22-29); Chloride 97 mmol/L (96-108); Creatinine Clr Calc Pharmacy 17.3; Estimated Glomerular Filt Rate 15; Glucose Fasting 301 mg/dL (60-99); Sodium 128 mmol/L (135-145)
[2023-06-16 07:25] LABS: Glucose, Whole Blood 349 mg/dL (60-115)
[2023-06-16 07:32] VITALS: BP 152/72; PULSE 69; RESP 16; TEMP 36.2; O2SAT 95
[2023-06-16] MEDS: Insulin Glargine,Hum.rec.anlog 100 UNIT/ML 10 ML VIAL 15 UNIT SUBCUT (08:44)
[2023-06-16] MEDS: Insulin Lispro 100 UNIT/ML 3 ML VIAL SUBCUT ×3 (08:45→20:42)
[2023-06-16] MEDS: Finasteride 5 MG TABLET PO (08:45)
[2023-06-16] MEDS: Atorvastatin Calcium 80 MG TABLET PO (08:46)
[2023-06-16] MEDS: Metoprolol Succinate ER 100 MG TAB.ER.24H PO (08:46)
[2023-06-16] MEDS: Cholecalciferol (Vitamin D3) 25 MCG TABLET 50 MCG PO (08:46)
[2023-06-16] MEDS: Tamsulosin HCL 0.4 MG CAPSULE 0.8 MG PO (08:46)
[2023-06-16] MEDS: Isosorbide Mononitrate 30 MG TAB.ER.24H PO (08:47)
[2023-06-16] MEDS: Furosemide 40 MG TABLET PO (08:47)
[2023-06-16] MEDS: Clopidogrel Bisulfate 75 MG TABLET PO (08:47)
[2023-06-16] MEDS: amLODIPine Besylate 10 MG TABLET PO (08:47)
[2023-06-16] MEDS: Sucralfate 1 GM TABLET PO ×2 (08:47→20:06)
[2023-06-16] MEDS: bisacodyL 5 MG TABLET.DR 10 MG PO (08:47)
[2023-06-16] MEDS: Aspirin Enteric Coated 81 MG TABLET.DR PO (08:47)
[2023-06-16] MEDS: Heparin Sodium,Porcine 5,000 UNIT/ML VIAL 5000 UNIT SUBCUT ×2 (08:48→19:38)
[2023-06-16] MEDS: 0.9 % Sodium Chloride Flush 3 ML SYRINGE IVFLUSH ×2 (08:48→16:07)
[2023-06-16] MEDS: timoloL maleate 0.5 % Oph Sol 5 ML DRBTL 1 DROP EYE-BOTH (08:49)
[2023-06-16] MEDS: Dorzolamide HCl 2 % Ophth Sol 10 ML DRPBTL 1 DROP EYE-LEFT ×2 (08:49→20:06)
--- NOTE | 2023-06-16 09:09 | P.PNIM_ITS ---
Subjective Subjective Date of Service: 06/16/23 Interval History: constipation, abd cramps Physical Exam 2 Vital Signs: Vital Signs: Last Vital Signs Temp 97.1 F 06/16/23 07:32 Pulse 69 06/16/23 07:32 Resp 16 06/16/23 07:32 BP 152/72 H 06/16/23 07:32 Pulse Ox 95 06/16/23 07:32 O2 Del Method Room Air 06/16/23 07:32 BMI result Body Mass Index 28.0 General: AO X 3, no acute distress Resp: CTA bilateral, no accessory muscles used CVS: S1,S2,RRR GI: soft, non tender, non distended Neuro: motor grossly intact, alert Psych: appropriate affect, appropriate insight Objective Data Active Medications Acetaminophen (Acetaminophen 325 Mg Tablet) 650 mg PO Q6H PRN PRN Reason: Pain, Mild (Pain Scale 1-3) Last Admin: 06/14/23 03:43 Dose: 650 mg Documented By: ALANA Acetaminophen (Acetaminophen Supp 650 Mg Supp.Rect) 650 mg [place] Q6H PRN PRN Reason: Pain, Mild (Pain Scale 1-3) Amlodipine Besylate (Amlodipine Besylate 10 Mg Tablet) 10 mg PO DAILY [facility]; Protocol Last Admin: 06/16/23 08:47 Dose: 10 mg Documented By: BAILEY Aspirin (Aspirin Enteric Coated 81 Mg Tablet.Dr) 81 mg PO DAILY [facility] Last Admin: 06/16/23 08:47 Dose: 81 mg Documented By: BAILEY Atorvastatin Calcium (Atorvastatin Calcium 80 Mg Tablet) 80 mg PO DAILY [facility] Last Admin: 06/16/23 08:46 Dose: 80 mg Documented By: BAILEY Clopidogrel Bisulfate (Clopidogrel Bisulfate 75 Mg Tablet) 75 mg PO DAILY [facility] Last Admin: 06/16/23 08:47 Dose: 75 mg Documented By: BAILEY Dextrose (Dextrose 50 % 25 Gm/50 Ml Syringe) 25 gm IVPUSH Q15M PRN; Protocol PRN Reason: per Hypoglycemia Standing Ord. Dorzolamide HCl (Dorzolamide Hcl 2 % Ophth Jyothi 10 Ml Drpbtl) 1 drop EYE-LEFT BID [facility] Last Admin: 06/16/23 08:49 Dose: 1 drop Documented By: BAILEY Finasteride (Finasteride 5 Mg Tablet) 5 mg PO DAILY [facility] Last Admin: 06/16/23 08:45 Dose: 5 mg Documented By: BAILEY Fluticasone Propionate (Fluticasone Propionate Nasal 16 Gm [place]) 1 spray NOSTRIL-B Q12H PRN PRN Reason: Allergy Symptoms Furosemide (Furosemide 40 Mg Tablet) 40 mg PO DAILY [facility]; Protocol Last Admin: 06/16/23 08:47 Dose: 40 mg Documented By: BAILEY Glucose (Glucose Gel 15 Gm Gel..Gram.) 15 gm PO Q15M PRN; Protocol PRN Reason: per Hypoglycemia Standing Ord. Heparin Sodium (Porcine) (Heparin Sodium,Porcine 5,000 Unit/Ml Vial) 5,000 unit SUBCUT Q12H [facility] Last Admin: 06/16/23 08:48 Dose: 5,000 unit Documented By: BAILEY Ceftriaxone Sodium 1 gm/ (Sodium Chloride) 50 mls @ 100 mls/hr IV Q24H [facility] Last Infusion: 06/15/23 22:33 Dose: Infused Documented By: SERENE Insulin Human Lispro (Insulin Lispro 100 Unit/Ml 3 Ml Vial) 0 unit SUBCUT QIDACHS [facility]; Protocol Last Admin: 06/16/23 08:45 Dose: 8 unit Documented By: BAILEY Isosorbide Mononitrate (Isosorbide Mononitrate 30 Mg Tab.Er.24h) 30 mg PO DAILY [facility]; Protocol Last Admin: 06/16/23 08:47 Dose: 30 mg Documented By: BAILEY Latanoprost (Latanoprost 0.005 % Ophth Jyothi 2.5 Ml Drops) 1 drop EYE-BOTH BEDTIME [facility] Last Admin: 06/15/23 20:51 Dose: 1 drop Documented By: SERENE Melatonin (Melatonin 3 Mg Tablet) 6 mg PO BEDTIME PRN PRN Reason: Insomnia Metoprolol Succinate (Metoprolol Succinate Er 100 Mg Tab.Er.24h) 100 mg PO DAILY [facility]; Protocol Last Admin: 06/16/23 08:46 Dose: 100 mg Documented By: BAILEY Morphine Sulfate (Morphine Sulfate 2 Mg/Ml Cartridge) 2 mg IVPUSH Q4H PRN; Protocol PRN Reason: Pain, Severe (Pain Scale 7-10) Last Admin: 06/13/23 05:31 Dose: 2 mg Documented By: ALANA Nitroglycerin (Nitroglycerin 2 % Oint 1 Gm Packet) 1 inch TRANSDERMA RQ6H WHILE AWAKE PRN PRN Reason: Angina Omeprazole (Omeprazole 20 Mg Capsule.Dr) 20 mg PO DAILY@0630 [facility] Last Admin: 06/16/23 05:09 Dose: 20 mg Documented By: SERENE Ondansetron HCl (Ondansetron Hcl 4 Mg/2 Ml Vial) 4 mg IVPUSH Q4H PRN PRN Reason: Nausea and Vomiting Last Admin: 06/12/23 22:49 Dose: 4 mg Documented By: ALANA Polyethylene Glycol (Polyethylene Glycol 3350 17 Gm Powd.Pack) 17 gm PO DAILY [facility] Last Admin: 06/16/23 08:48 Dose: Not Given Documented By: BAILEY Non-Admin Reason: took dulcolax Sertraline HCl (Sertraline Hcl 50 Mg Tablet) 50 mg PO DAILY [facility] Last Admin: 06/16/23 08:48 Dose: Not Given Documented By: BAILEY Non-Admin Reason: Patient Refused Simethicone (Simethicone 80 Mg Tab.Chew) 80 mg PO QIDWMHS [facility] Last Admin: 06/16/23 08:48 Dose: Not Given Documented By: BAILEY Non-Admin Reason: Patient Refused Sodium Chloride (0.9 % Sodium Chloride Flush 3 Ml Syringe) 3 ml IVFLUSH QSHIFT [facility] Last Admin: 06/16/23 08:48 Dose: 3 ml Documented By: BAILEY Sucralfate (Sucralfate 1 Gm Tablet) 1 gm PO BID [facility] Last Admin: 06/16/23 08:47 Dose: 1 gm Documented By: BAILEY Tamsulosin HCl (Tamsulosin Hcl 0.4 Mg Capsule) 0.8 mg PO DAILY [facility] Last Admin: 06/16/23 08:46 Dose: 0.8 mg Documented By: BAILEY Timolol Maleate (Timolol Maleate 0.5 % Oph Jyothi 5 Ml Drbtl) 1 drop EYE-BOTH DAILY [facility] Last Admin: 06/16/23 08:49 Dose: 1 drop Documented By: BAILEY Vitamin D (Cholecalciferol (Vitamin D3) 25 Mcg Tablet) 50 mcg PO DAILY [facility] Last Admin: 06/16/23 08:46 Dose: 50 mcg Documented By: BAILEY Labs 06/16/23 05:19 06/16/23 05:19 Labs: Laboratory Results - last 24 hr 06/15/23 06/15/23 06/15/23 10:56 16:06 20:32 MCV MCH MCHC RDW Plt Count MPV Absolute Nucleated RBC Nucleated RBC % (auto) Anion Gap Estim Creat Clear Calc Estimated GFR POC Glucose 149 H 170 H 214 H Fasting Glucose Calcium 06/16/23 06/16/23 05:19 07:11 MCV 82.1 MCH 27.3 MCHC 33.2 RDW 12.9 Plt Count 153 L MPV 10.3 Absolute Nucleated RBC 0.000 Nucleated RBC % (auto) 0.0 Anion Gap 13 Estim Creat Clear Calc 17.3 Estimated GFR 15 POC Glucose 349 H Fasting Glucose 301 H Calcium 8.5 Assessment and Plan (1) Urinary retention with incomplete bladder emptying: Status: Acute (2) ESRD (end stage renal disease) on dialysis: Status: Acute (3) Acute metabolic encephalopathy: Status: Acute (4) UTI (urinary tract infection): Status: Acute Plan 72-year-old male with a PMH significant for?CAD s/p quintuple coronary artery bypass grafting in 2017 and stenting in 2022, HTN, HLD, insulin-dependent diabetes type 2, ESRD on hemodialysis M/W/F, spinal stenosis with lower extremity weakness and unsteady gait who presented to the ED with?dysuria and increased urgency Acute metabolic encephalopathy 2/2 sepsis d/t UTI Encephalopathy resolved Urine cultures growing Klebsiella CT abd\pelvis showing enlarge prostate w thickened wall bladder PSA elevated Urology performed Cystoscopy (see report) continue IV ceftriaxone, started 06/11/2023 severe constipation hold miralax, dulcolax follow up kub BPH flomax, proscar pvr - no retention so far Abdominal pain Chronic, negative GB for stones likely IBS, start symptomatic meds Plan to follow with GI as outpatient ESRD hemodialysis M/W/F Nephrology following CAD Continue aspirin, statin, clopidogrel HTN Continue home meds Insulin-dependent diabetes type 2 Hold degludec SSI Gout Continue allopurinol Full Code DVT Prophylaxis: Heparin reason for continued hospitalization: severe constipation Time Spent With Patient Time: Total time managing care of this patient today ____ minutes. Quality Stroke Does the patient have a stroke diagnosis?: No VTE Prior VTE?: No VTE Risk Level:: Medical - moderate - high VTE Device Contraindication: Treatment Not Indicated VTE Drug Contraindication: N/A - Med Ordered
--- NOTE | 2023-06-16 10:51 | P.PNNP_ITS ---
Subjective Subjective Date of Service: 06/16/23 Interval history: Seen AM. Constipated. HD was uneventful yesterday Physical Exam 2 Vital Signs: Vital Signs: Last Vital Signs Temp 97.1 F 06/16/23 07:32 Pulse 69 06/16/23 07:32 Resp 16 06/16/23 07:32 BP 152/72 H 06/16/23 07:32 Pulse Ox 95 06/16/23 07:32 O2 Del Method Room Air 06/16/23 07:32 BMI result Body Mass Index 28.0 Const: General: no acute distress Orientation/consciousness: patient oriented x3 Eyes: EOM: EOMs intact bilaterally Neck: Neck: Yes supple Resp: Auscultation: diminished lung sounds Cardio: Rate: regular rate GI: Palpation (GI): Soft to palpation Neuro: General: patient oriented x3 and moves all extremities Objective Data Labs 06/16/23 05:19 06/16/23 05:19 Labs: Laboratory Results - last 24 hr 06/15/23 06/15/23 06/15/23 10:56 16:06 20:32 WBC RBC Hgb Hct MCV MCH MCHC RDW Plt Count MPV Absolute Nucleated RBC Nucleated RBC % (auto) Sodium Potassium Chloride Carbon Dioxide Anion Gap BUN Creatinine Estim Creat Clear Calc Estimated GFR POC Glucose 149 H 170 H 214 H Fasting Glucose Calcium 06/16/23 06/16/23 05:19 07:11 WBC 6.2 RBC 4.25 L Hgb 11.6 L Hct 34.9 L MCV 82.1 MCH 27.3 MCHC 33.2 RDW 12.9 Plt Count 153 L MPV 10.3 Absolute Nucleated RBC 0.000 Nucleated RBC % (auto) 0.0 Sodium 128 L Potassium 4.0 Chloride 97 Carbon Dioxide 22 Anion Gap 13 BUN 45 H Creatinine 4.03 H* Estim Creat Clear Calc 17.3 Estimated GFR 15 POC Glucose 349 H Fasting Glucose 301 H Calcium 8.5 Microbiology Microbiology Results: Microbiology 06/11/23 19:24 Blood - Venous Blood Culture - Preliminary No growth after 48 hours. 06/11/23 18:16 Blood - Venous Blood Culture - Preliminary No growth after 48 hours. 06/11/23 Unknown Urine clean catch - Urine denny top Urine Culture - Final Klebsiella pneumoniae Procedures Date of Service Date of Service: 06/16/23 Assessment & Plan Assessment and plan (1) ESRD (end stage renal disease) on dialysis: Status: Acute Assessment and Plan: Mr. Mrak Conte is a 72-year-old gentleman with past medical history of CAD s/p quintuple coronary artery bypass grafting in 2017 and stenting in 2022, HTN, HLD, insulin-dependent diabetes type 2, ESRD on hemodialysis M/W/F, spinal stenosis with lower extremity weakness who presented with dysuria which occurred after HD treatment. ESRD on hemodialysis M/W/F; Due tomorrow Renal restricted diet; No ESAs required for now C/W rest of current management for now Progress Note: Quality Stroke Does the patient have a stroke diagnosis?: No
[2023-06-16 11:01] LABS: Glucose, Whole Blood 163 mg/dL (60-115)
--- NOTE | 2023-06-16 12:40 | P.CDIM_ITS ---
PROVIDER RESPONSE TEXT: To clarify, the appropriate diagnosis supported by the clinical indicators: Hyponatremia QUERY TEXT: PHYSICIAN'S DOCUMENTATION REQUEST Date of Query: 06/16/2023 12:30 PM EDT Patient Name: Mark Conte Admit Date: 06/11/2023 Dear Rasta Vaughn, A review of the medical record indicates additional documentation may be needed. Please review below and update the documentation accordingly. Clinical Indicators: LAB FINDINGS: sodium 128 L Based on the above, is there a diagnosis that correlates with these lab findings: Hyponatremia Labs indicate a diagnosis of (please specify) Other please specify Other (explain)Clinically unable to determine (explain)Thank you, Melva Cisneros, CCS, CDIS Use of terms such as suspected, likely, concern for, or probable (associated with a specific diagnosi s that is being evaluated, monitored, or treated as if it exists) are acceptable and can be coded in the inpatient se tting, when documented at the time of discharge. Please use your independent medical judgment in providing your response. THIS QUERY IS PART OF THE PERMANENT MEDICAL RECORD
[2023-06-16 15:35] VITALS: BP 137/64; PULSE 62; RESP 18; TEMP 36.5; O2SAT 97
[2023-06-16 16:15] LABS: Glucose, Whole Blood 256 mg/dL (60-115)
[2023-06-16] MEDS: cefTRIAXone sodium 1 GM in 0.9 % Sodium Chloride 50 ML IV (19:37)
[2023-06-16 19:59] VITALS: BP 131/65; PULSE 61; RESP 18; TEMP 36.3; O2SAT 96
[2023-06-16] MEDS: Latanoprost 0.005 % Ophth Sol 2.5 ML DROPS 1 DROP EYE-BOTH (20:06)
[2023-06-16 20:34] LABS: Glucose, Whole Blood 240 mg/dL (60-115)
[2023-06-17 03:54] VITALS: BP 131/6; PULSE 79; RESP 16; TEMP 36.3; O2SAT 95
[2023-06-17] MEDS: Omeprazole 20 MG CAPSULE.DR PO (05:47)
[2023-06-17 07:27] LABS: Glucose, Whole Blood 334 mg/dL (60-115)
[2023-06-17 07:33] VITALS: BP 143/64; PULSE 67; RESP 18; TEMP 36.6; O2SAT 96
[2023-06-17] MEDS: Dorzolamide HCl 2 % Ophth Sol 10 ML DRPBTL 1 DROP EYE-LEFT (08:05)
[2023-06-17] MEDS: Heparin Sodium,Porcine 5,000 UNIT/ML VIAL 5000 UNIT SUBCUT (08:05)
[2023-06-17] MEDS: Insulin Lispro 100 UNIT/ML 3 ML VIAL SUBCUT (08:05)
[2023-06-17] MEDS: timoloL maleate 0.5 % Oph Sol 5 ML DRBTL 1 DROP EYE-BOTH (08:06)
[2023-06-17] MEDS: 0.9 % Sodium Chloride Flush 3 ML SYRINGE IVFLUSH (08:10)
--- NOTE | 2023-06-17 09:10 | P.DS_ITS ---
DS: Providers Provider Date of Service: 06/17/23 Date of admission: 06/11/23 19:12 Primary care physician: Miguelangel Beckham MD Consults: 06/11/23 21:11 Consult to Nephrology Routine Consulting Provider: Miguelito Zambrano Reason for consultation: Pt with ESRD on HD M/W/F 06/13/23 07:46 Consult to Urology Routine Consulting Provider: Jeff Hopkins Reason for consultation: UTI, bladder wall thickening, elevated PSA, family request. DS: Diagnosis Discharge Diagnosis (1) ESRD (end stage renal disease) on dialysis: Status: Acute DS: Summary Hospital Course Hospital Course: from initial hpi: 72-year-old male with a PMH significant for CAD s/p quintuple coronary artery bypass grafting in 2017 and stenting in 2022, HTN, HLD, insulin-dependent diabetes type 2, ESRD on hemodialysis M/W/F, spinal stenosis with lower extremity weakness and unsteady gait who presents to the ED with dysuria and increased urgency since last night. Patient states he went to dialysis yesterday and felt great until about 2-3 hours afterwards. Reports suddenly having a ?great urge to go? but found that he could produced nothing more than a very weak stream. Patient reports he normally still produces significant amounts of urine. He also notes he experienced fever, chills, nausea but no vomiting, and had significant pain with urination. Daughter is at bedside and adds that patient has been more confused today and incontinent of urine. Denies chest pain/pressure, palpitations. No shortness of breath. Denies abdominal pain. Of note, patient was last admitted to the hospital on 01/17/2023 through 01/18/2023 for worsening epigastric pain, nausea, and dry heaving. Hospital course was complicated by NSTEMI with patient with chest pain and troponins >3600. Patient was transferred to [facility] for cardiac catheterization and had 2 stents placed. Patient had CKD 4 at that time but was not on hemodialysis; the contrast dye from this procedure ultimately caused patient to go on to hemo dialysis. 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 In the ED patient was febrile up to 102.0 and hypertensive up to 161/71, satting at 97% on RA. Labs were significant for leukocytosis of 16.6, BUN 69, creatinine 5.22. H&H stable. Electrolytes WNL. UA positive for UTI. CXR showed no acute cardiopulmonary process seen. EKG demonstrated a sinus rhythm with frequent and consecutive PVCs with nonspecific ST and T wave abnormalities. Pt was treated with acetaminophen, IVF, ceftriaxone. Pt will be admitted to the hospital for treatment further evaluation of sepsis in the setting of UTI. hospital course: Patient was admitted for acute metabolic encephalopathy due to sepsis due to urinary tract infection in patient with urinary retention due to BPH. Was started on ceftriaxone and completed course. Urine grew Klebsiella. Was seen by urology performed cystoscopy with some bladder tumors removed, pathology should be followed up, patient should follow up with Urology. He was also started on alpha-gracia and Proscar. Urinary retention resolved. For severe c onstipation his was held and he was given MiraLax and Dulcolax. For end-stage renal disease was continued on hemodialysis. For coronary disease was continue on dual antiplatelet and statin. For hypertension was continued on amlodipine, Imdur, Toprol. For diabetes with hyperglycemia was continued on insulin. For her gout is continue allopurinol. Patient is feeling better will be discharged home. Time Spent with Patient Time attestation: Total time managing care of this patient today ____ minutes. Discharge coordination time: Greater than 30 minutes Quality: Safe Use of Opioids Does Pt have an Active Cancer Diagnosis on the Problem List?: No Quality: Stroke Does the patient have a stroke diagnosis?: No Physical Exam Vital Signs: Vital Signs: Last Vital Signs Temp 97.8 F 06/17/23 07:33 Pulse 67 06/17/23 07:33 Resp 18 06/17/23 07:33 BP 143/64 H 06/17/23 07:33 Pulse Ox 96 06/17/23 07:33 O2 Del Method Room Air 06/17/23 07:33 BMI result Body Mass Index 28.0 Const: General: no acute distress Orientation/consciousness: patient oriented x3 Eyes: EOM: EOMs intact bilaterally Neck: Neck: Yes supple Resp: Auscultation: diminished lung sounds Cardio: Rate: regular rate GI: Palpation (GI): Soft to palpation Neuro: General: patient oriented x3 and moves all extremities DS: Data Data Completed and Pending Labs on day of discharge: Laboratory Results - last 24 hr 06/16/23 06/16/23 06/16/23 10:56 16:12 20:30 POC Glucose 163 H 256 H 240 H 06/17/23 07:23 POC Glucose 334 H Discharge Plan Discharge Anticipated Discharge Date/Time: 06/17/23 09:06 Patient Disposition: Home, Self-Care Discharge Diagnosis: uti, bph, constipation Referrals: Miguelangel Beckham MD [Primary Care Provider] - 1 Week Discharge Medications: New finasteride 5 mg tablet 5 mg PO DAILY 30 Days Qty: 30 1RF Rx Instructions: Daily tablet terazosin 10 mg capsule 10 mg PO BEDTIME 30 Days Qty: 30 1RF Continued timolol maleate 0.5 % drops 1 drp ophthalmic (eye) DAILY furosemide 40 mg tablet 40 mg PO DAILY latanoprost 0.005 % drops 1 drp ophthalmic (eye) BEDTIME isosorbide mononitrate 30 mg tablet extended release 24 hr 30 mg PO DAILY pantoprazole 40 mg tablet,delayed release (DR/EC) 40 mg PO DAILY@0630 sertraline 50 mg tablet 50 mg PO DAILY dorzolamide 2 % drops 1 drp ophthalmic-Left Q12H fluticasone propionate [Flonase Allergy Relief] 50 mcg/actuation spray,suspension 1 spray intranasal Q12H PRN (Reason: Allergy Symptoms) Rx Instructions: administer into each nostril Nitro-Bid 2 % ointment 1 inch transdermal RQ6H WHILE AWAKE PRN (Reason: Angina) aspirin 81 mg tablet,delayed release (DR/EC) 81 mg PO DAILY Tresiba FlexTouch U-100 100 unit/mL (3 mL) insulin pen 17 unit subcut BID cholecalciferol (vitamin D3) 50 mcg (2,000 unit) capsule 50 mcg PO DAILY atorvastatin 80 mg tablet 80 mg PO DAILY amlodipine 10 mg tablet 10 mg PO DAILY clopidogrel 75 mg tablet 75 mg PO DAILY metoprolol succinate 100 mg tablet extended release 24 hr 100 mg PO DAILY sucralfate 1 gram tablet 1 g PO BID Qty: 60 3RF Discharge Orders: Discharge Order (Routine); Ordered 06/17/23 Ordered By: Rasta Vaughn Diet: Advance to usual diet Activity on Discharge: As tolerated Stand Alone Forms: Patient Portal Discharge page Care Plan Goals: recovery Health Concerns: uti, constipation Plan of Treatment: completed antibiotics course, contine bph meds Assessment: see above
--- NOTE | 2023-06-17 10:54 | P.PNNP_ITS ---
Subjective Subjective Date of Service: 06/17/23 Interval history: Seen on HD this AM. Tolerating HD . Feels better Physical Exam 2 Vital Signs: Vital Signs: Last Vital Signs Temp 97.8 F 06/17/23 07:33 Pulse 67 06/17/23 07:33 Resp 18 06/17/23 07:33 BP 143/64 H 06/17/23 07:33 Pulse Ox 96 06/17/23 07:33 O2 Del Method Room Air 06/17/23 07:33 BMI result Body Mass Index 28.0 Const: General: no acute distress Orientation/consciousness: patient oriented x3 Eyes: EOM: EOMs intact bilaterally Resp: Auscultation: diminished lung sounds Cardio: Rate: regular rate GI: Palpation (GI): Soft to palpation Neuro: General: patient oriented x3 Objective Data Labs 06/16/23 05:19 06/16/23 05:19 Labs: Laboratory Results - last 24 hr 06/16/23 06/16/23 06/16/23 10:56 16:12 20:30 POC Glucose 163 H 256 H 240 H 06/17/23 07:23 POC Glucose 334 H Microbiology Microbiology Results: Microbiology 06/11/23 19:24 Blood - Venous Blood Culture - Final No growth after 5 days. 06/11/23 18:16 Blood - Venous Blood Culture - Final No growth after 5 days. 06/11/23 Unknown Urine clean catch - Urine denny top Urine Culture - Final Klebsiella pneumoniae Procedures Date of Service Date of Service: 06/17/23 Assessment & Plan Assessment and plan (1) ESRD (end stage renal disease) on dialysis: Status: Acute Plan Mr. Mark Conte is a 72-year-old gentleman with past medical history of CAD s/p quintuple coronary artery bypass grafting in 2018 and stenting in 2022, HTN, HLD, insulin-dependent diabetes type 2, ESRD on hemodialysis M/W/F, spinal stenosis with lower extremity weakness who presented with dysuria which occurred after HD treatment. ESRD on hemodialysis M/W/F; Seen on HD Renal restricted diet; No ESAs required for now C/W rest of current management Progress Note: Quality Stroke Does the patient have a stroke diagnosis?: No
--- NOTE | 2023-06-17 11:42 | MHC.CM.PN ---
DP: PER MD ROUNDS MEDICALLY CLEARED FOR DC TODAY HOME NO SERVICES. HAS OWN RIDE. DIALYSIS COMPLETED THIS AM. WILL RESUME WITH [facility] ON WEDNESDAY 06/20. [facility] WAS UPDATED.
[2023-06-17 13:02] VITALS: BP 167/69; PULSE 68; RESP 18; TEMP 36.1; O2SAT 98
[2023-06-17] MEDS: Atorvastatin Calcium 80 MG TABLET PO (13:05)
[2023-06-17] MEDS: amLODIPine Besylate 10 MG TABLET PO (13:05)
[2023-06-17] MEDS: Tamsulosin HCL 0.4 MG CAPSULE 0.8 MG PO (13:05)
[2023-06-17] MEDS: Clopidogrel Bisulfate 75 MG TABLET PO (13:05)
[2023-06-17] MEDS: Cholecalciferol (Vitamin D3) 25 MCG TABLET 50 MCG PO (13:05)
[2023-06-17] MEDS: Isosorbide Mononitrate 30 MG TAB.ER.24H PO (13:05)
[2023-06-17] MEDS: Finasteride 5 MG TABLET PO (13:05)
[2023-06-17] MEDS: Sucralfate 1 GM TABLET PO (13:06)
[2023-06-17] MEDS: Aspirin Enteric Coated 81 MG TABLET.DR PO (13:06)
[2023-06-17] MEDS: Furosemide 40 MG TABLET PO (13:06)
[2023-06-17] MEDS: polyethylene glycoL 3350 17 GM POWD.PACK PO (13:06)
[2023-06-17] MEDS: Metoprolol Succinate ER 100 MG TAB.ER.24H PO (13:06)
[2023-06-17 13:34] LABS: Glucose, Whole Blood 135 mg/dL (60-115)
== END 2023-06-17 14:28 | disposition home or self-care (01) | DRG 871 ==
LOC: HO.ED 18:14 → HO.EDOVER 19:35 → HO.S3 19:36
PROVIDERS: Physician Assistant Medical; Student in an Organized Health Care Education/Training Program; Admitting Provider Student in an Organized Health Care Education/Training Program; Emergency Provider Internal Medicine; PCP Internal Medicine; Visit Provider Internal Medicine
DX: A41.9 Sepsis, unspecified organism (principal); G93.41 Metabolic encephalopathy; N18.6 End stage renal disease; N39.0 Urinary tract infection, site not specified; E87.1 Hypo-osmolality and hyponatremia; N13.8 Other obstructive and reflux uropathy; E11.22 Type 2 diabetes mellitus with diabetic chronic kidney disease; I25.10 Atherosclerotic heart disease of native coronary artery without angina pectoris; M10.9 Gout, unspecified; B96.1 Klebsiella pneumoniae [K. pneumoniae] as the cause of diseases classified elsewhere; K58.9 Irritable bowel syndrome, unspecified; N40.1 Benign prostatic hyperplasia with lower urinary tract symptoms; Z20.822 Contact with and (suspected) exposure to COVID-19; Z95.1 Presence of aortocoronary bypass graft; Z99.2 Dependence on renal dialysis; Z87.891 Personal history of nicotine dependence; Z79.4 Long term (current) use of insulin; Z79.02 Long term (current) use of antithrombotics/antiplatelets; Z79.82 Long term (current) use of aspirin; Z79.899 Other long term (current) drug therapy
CPT/HCPCS: 0241U; 36415; 71045; 74018; 74176; 80048; 80053; 80076; 80202; 81001; 82947; 83605; 83690; 83735; 84153; 85025; 85027; 87040; 87086; 87088; 87186; 90999; 93005; 97116; 97161; 99285; J0696; J1643; J2270; J2405; J3370

== ENCOUNTER → 2023-06-11 19:12 | Outpatient (BNV) | payer OTHER, SELFPAY | PROVIDERS: Admitting Provider Student in an Organized Health Care Education/Training Program; Emergency Provider Internal Medicine; PCP Internal Medicine; Visit Provider Urology | DX: N18.6 End stage renal disease (principal); Z99.2 Dependence on renal dialysis; N30.00 Acute cystitis without hematuria; N32.0 Bladder-neck obstruction | CPT/HCPCS: 52000; 99222; 99232 ==

== ENCOUNTER → 2023-06-11 19:12 | Outpatient (BNV) | payer OTHER, SELFPAY | PROVIDERS: Admitting Provider Student in an Organized Health Care Education/Training Program; Emergency Provider Internal Medicine; PCP Internal Medicine; Visit Provider Student in an Organized Health Care Education/Training Program | DX: N18.6 End stage renal disease (principal); Z99.2 Dependence on renal dialysis | CPT/HCPCS: 99223; 99232; 99233; 99239 ==

== ENCOUNTER → 2023-07-07 07:49 | Outpatient (REF) | payer OTHER, SELFPAY ==
--- NOTE | ~2023-07-07 | NM_ITS ---
EXAMINATION: RADIONUCLIDE SOLID FOOD GASTRIC EMPTYING 4-HOUR STUDY CLINICAL INFORMATION: Gastroesophageal reflux disease without esophagitis. COMPARISON: No previous gastric emptying study is available for comparison. TECHNIQUE: A standard meal consisting of 4 oz of Egg Beaters brand equivalent tagged with 1 mCi Tc-99m Sulfur Colloid, 8 oz water and 2 slices of toast with jelly was administered orally to the patient. Images were obtained using a dual head gamma camera in the anterior and posterior projections over of the stomach immediately post ingestion and at hourly intervals up to 4 hours post ingestion. The anterior and posterior counts at each time interval were averaged using the geometric mean and expressed as percentage of the immediate post ingestion counts. FINDINGS: There is good visualization of activity in the stomach immediately post ingestion. As the study progresses, there is fair to good clearance of activity from the stomach and visualization of progressively increasing small bowel activity. However, at the end of the study there is mild abnormal retention of activity in the stomach at 4 hours. Retention in the stomach at each time interval was: 1 hour 74% (normal 37%-90%) 2 hours 58% (normal 30%-60%) 3 hours 30% 4 hours 13% (normal 0%-10%) NM/NM gastric emptying study IMPRESSION: Abnormal study. There is mild abnormal retention of solid food in the stomach at 4 hours. Gastric emptying study grading per JNMT Consensus Recommendations in 2008: https://tech.snmjournals.org/content/36//44 Grade 1 (mild retention): 11-20% at 4 hours Grade 2 (moderate retention): 21-35% at 4 hours Grade 3 (severe retention): 36-50% at 4 hours Grade 4 (very severe retention): >50% retention at 4 hours
== END ==
LOC: HO.NUCMED 07:49
PROVIDERS: PCP Internal Medicine; Visit Provider Nurse Practitioner Family
DX: K21.9 Gastro-esophageal reflux disease without esophagitis (principal)
CPT/HCPCS: 78264; A9541

== ENCOUNTER 2023-07-19 08:58 | Outpatient (AMB) | payer OTHER, SELFPAY ==
--- NOTE | 2023-07-19 09:11 | A.OFFVIS_ITS ---
Intake Intake Visit Reasons: 4 week follow up Intake Note: NEW Patient presents today to established treatment for Bladder Outlet Obstruction: Meds- Terazosin Allergies to Antibiotic- No Known Allergies Blood Thinner- Aspirin & Furosemide PVR- 0 mL Back Feeder Plywood Layup Line Required: No Accompanied by: Significant Other Allergies liraglutide [From Victoza] Allergy (Intermediate, Verified 07/19/23 13:07) Hives Seasonal Allergies Adverse Reaction (Intermediate, Verified 07/19/23 13:07) Itchy Eyes demoral Allergy (Intermediate, Uncoded 07/19/23 13:07) Hives Medication List - Last Reconciled 07/19/23 by TAMARA Huggins- amlodipine 10 mg PO DAILY aspirin 81 mg PO DAILY atorvastatin 80 mg PO DAILY cholecalciferol (vitamin D3) 50 mcg PO DAILY clopidogrel 75 mg PO DAILY dorzolamide 2% 1 drp ophthalmic-Left Q12H finasteride 5 mg PO DAILY 90 days fluticasone propionate 50 mcg/actuation (Flonase Allergy Relief) 1 spray intranasal Q12H PRN furosemide 40 mg PO DAILY insulin degludec (Tresiba FlexTouch U-100 insulin) 17 units subcut BID isosorbide mononitrate ER 30 mg PO DAILY latanoprost 0.005% 1 drp ophthalmic (eye) BEDTIME metoprolol succinate ER 100 mg PO DAILY nitroglycerin 2% (Nitro-Bid) 1 inch transdermal RQ6H WHILE AWAKE PRN pantoprazole 40 mg PO DAILY@0630 sucralfate 1 g PO BID terazosin 10 mg PO BEDTIME 90 days timolol maleate 0.5% 1 drp ophthalmic (eye) DAILY HPI HPI Comments History of Present Illness Details Mark is a very pleasant 73-year-old male patient of Dr. Miguelangel Beckham who is accompanied by his significant other at today's office visit. He has a past medical history of end-stage renal disease, acute metabolic encephalopathy, sepsis, NSTEMI, diabetes, coronary artery disease, hypertension, hyperlipidemia, anxiety, and gout. He presents to the office today for follow-up of his lower urinary tract symptoms. Patient discusses recently coming off dialysis. Discusses his admission at [facility] in January of this year complicated by NSTEMI and elevated troponins with cardiac catheterization double stent placement. Chronic kidney disease was complicated by contrast he received during catheterization which triggered worsening renal failure and was on dialysis for approximately 3 months however has since come off of dialysis within the last couple of weeks. Patient presented to [facility] approximately 1 month ago febrile with a fever of 100.2 in the ER and was worked up for sepsis. Urine cultures were positive for Klebsiella. He has since completed antibiotic therapy for urinary tract infection. However, during his hospital stay bedside cystoscopy was performed by Dr. Hopkins at which time recommendations were made for GreenLight laser out patient. However, in review of patient's chart it appears PSA was obtained 06/11 and noted to be elevated at 37.5. CT obtained through admission here at [facility] noting mild diffuse bladder wall thickening. The prostate gland is significantly enlarged measuring 6.9 cm in maximum transverse dimension. Bedside cystoscopy also noted prostate polyp. In discussion with the patient and his today he reports to be doing and feeling well. In office urinalysis results reviewed with the patient today. PVR 0 mL. Patient reports compliance with finasteride 5 mg daily as well as 10 mg of terazosin daily he reports feeling lower urinary tract symptoms are much improved with these medications. He discusses that although he received dialysis for a few months he has always made urine and has been urinarting. Discussed at length risks and benefits of GreenLight laser on the prostate as well as prostate biopsy. All questions were answered. [facility] Surgical History (Updated 07/19/23 @ 09: by CLARISSA Castellano) Hx of cystoscopy History of tonsillectomy Social History Household Members: Spouse Housing: House Do you presently have visiting nurse or other home services: No Alcohol intake: never Patient Tobacco Use Status: Former Tobacco user Cigarette Packs Per Day: 1 Years Smoked: 8 e-Cigarette/Vaping Use: Never Used Second Hand Smoke Exposure: No Advance Directives Date on File: 01/17/23 service: No Current occupational status: retired Cognitive needs: No Hearing needs: No Vision needs: No Review of Systems Const Reports as per [facility] Eyes Reports no additional complaints ENT Reports no additional complaints Card Reports as per [facility] Resp Reports no additional complaints GI Reports no additional complaints Reports as per [facility] Musc Reports as per [facility] Neuro Reports as per [facility] Psych Reports as per [facility] Endo Reports as per [facility] Physical Exam Const General: cooperative, comfortable, no acute distress, well developed, alert and awake Orientation/consciousness: patient oriented x3 Limitations: ambulation with walker HEENT Head: Yes normal to inspection, Yes normocephalic and Yes atraumatic Ears: hearing grossly normal bilaterally Eyes General: appearance normal, both eyes and all related structures Neck Neck: Yes normal visual inspection and Yes trachea midline Chest Chest palpation & inspection: normal inspection of the chest Resp Effort & Inspection: normal respiratory effort and able to speak in complete sentences Cardio Rate: regular rate GI Inspection: Yes normal to inspection General: Yes no CVA tenderness Back/Spine/Pelvis Back: no CVA tenderness Skin General skin exam: no rashes or lesions noted Neuro General: patient oriented x3 Extrem General: Yes normal to inspection Psych Appearance: grossly normal and well kempt Mental Status: mental status grossly normal Speech and movement: Normal speech and movement present and Clear speech present Affect: normal affect Attitude: cooperative Thought process: Normal thought process present Thought content: Normal thought content present Insight: Fair insight present (Psych) Judgement: Fair judgement present (Psych) Office Procedures Post Void Residual Post Residual Void Post Void Residual (PVR): 0 [id number] Void Residual by ultrasound Results AMB Urinalysis, Automated UA Leukoctes 0 Nghia/uL Last Edit by CLARISSA Castellano on 07/19/23 09:27 UA Nitrite Negative Last Edit by CLARISSA Castellano on 07/19/23 09:27 UA Urobilinogen 0.2 mg/dL Last Edit by CLARISSA Castellano on 07/19/23 09:2 7 UA Protein 100 mg/dL Last Edit by CLARISSA Castellano on 07/19/23 09:27 2+ Edwige Sargent 07/19/23 09:27 UA pH 5.5 Last Edit by CLARISSA Castellano on 07/19/23 09:27 UA Blood 0 Osvaldo/uL Last Edit by CLARISSA Castellano on 07/19/23 09:27 UA Specific [place] 1.020 Last Edit by Dariusandrez ArieCLARISSA on 07/19/23 09: 27 UA Ketone Negative Last Edit by Edwige SargentCLARISSA on 07/19/23 09:27 UA Bilirubin 0 mg/dL Last Edit by Dariusandrez ArieCLARISSA zhu on 07/19/23 09:27 UA Glucose 0 mg/dL Last Edit by Edwige ArieCLARISSA zhu on 07/19/23 09:27 Results Reviewed Results Reviewed: Laboratory Last Values Urine pH (Auto) 5.5 07/19/23 09:13 Specific [place] (Auto) 1.020 07/19/23 09:13 Urine Protein (Auto) 100 mg/dL 07/19/23 09:13 Glucose (UA)(Auto) 0 mg/dL 07/19/23 09:13 Urine Ketones (Auto) Negative 07/19/23 09:13 Urine Blood (Auto) 0 Osvaldo/uL 07/19/23 09:13 Urine Nitrite (Auto) Negative 07/19/23 09:13 Urine Bilirubin (Auto) 0 mg/dL 07/19/23 09:13 Urine Urobilinogen (Auto) 0.2 mg/dL 07/19/23 09:13 Leukocyte Esterase (Auto) 0 Nghia/uL 07/19/23 09:13 Date of Service: 06/12/23 EXAMINATION: CT ABDOMEN AND PELVIS WITHOUT CONTRAST FINDINGS: Visualized lung bases demonstrate mild dependent atelectasis. 3 mm pulmonary nodule right middle lobe (image [id number], series 4). The liver is normal in size. The gallbladder is normal in appearance. The pancreas is unremarkable. The spleen is mildly enlarged measuring 14 cm in maximum craniocaudal dimension. Both adrenal glands demonstrate mild diffuse hypertrophy. Symmetrically sized kidneys. No renal calculi or hydronephrosis of either kidney. There is mild bilateral perinephric stranding which is nonspecific. Normal caliber loops of small and large bowel. Normal appendix. Mild to moderate colonic diverticulosis without CT evidence to suggest active diverticulitis. Normal caliber abdominal aorta demonstrating moderate atherosclerotic disease. No retroperitoneal lymphadenopathy. The bladder is relatively decompressed and therefore not optimally characterized, however, there does appear to be mild diffuse bladder wall thickening. The prostate gland is significantly enlarged measuring 6.9 cm in maximum transverse dimension. Fat-containing inguinal hernias are noted bilaterally. There is no gross free pelvic fluid. No inguinal lymphadenopathy. Moderate diffuse degenerative changes of the spine with severe degenerative changes of the L3/4 level with prominent endplate erosive changes. IMPRESSION: 1. No renal calculi or hydronephrosis of either kidney. 2. Mild to moderate colonic diverticulosis without CT evidence to suggest active diverticulitis. 3. Mild splenomegaly. 4. Significantly enlarged prostate gland. 5. The bladder is relatively decompressed and therefore not optimally characterized, however, there does appear to be mild diffuse bladder wall thickening, possibly from bladder outlet obstruction. 6. 3 mm right middle lobe pulmonary nodule. Assessment & Plan Assessment & Plan (1) Bladder outlet obstruction: Code(s): N32.0 - Bladder-neck obstruction (2) Urinary retention with incomplete bladder emptying: Code(s): R33.9 - Retention of urine, unspecified (3) Enlarged prostate: Code(s): N40.0 - Benign prostatic hyperplasia without lower urinary tract symptoms (4) Elevated PSA: Code(s): R97.20 - Elevated prostate specific antigen [PSA] Plan: Risks, benefits and alternatives to therapy were discussed. These include but are not limited to infection, bleeding, damage to local organs and tissues, need for further interventions. ? Anesthetic risks regarding cardiac arrhythmia, blood clots, and potential mortality were discussed. The patient understands the typical recovery time and the outpatient nature of the procedure. After consideration of these risks the patient gives full informed consent and they wish to move ahead with the procedure. Plan In office urinalysis results reviewed with the patient today; as noted above. Proteinuria; patient follows with Dr. Crain. PVR 0 mL. Continue finasteride and terazosin as discussed and prescribed. Discussed at length risks and benefits of GreenLight laser of the prostate as well as prostate biopsy Will schedule for prostate biopsy as well as GreenLight laser with Dr. Hopkins as discussed and planned All questions were answered. Orders: Orders AMB Urinalysis Automated Today Z13.9 - Encounter for screening, unspecified PSA,Total (Free>4and<10) Today R97.20 - Elevated prostate specific antigen [PSA] AMB Post Void Residual by ultrasound Today N39.8 - Other specified disorders of urinary system Medications: Changed From terazosin 10 mg PO BEDTIME 30 days 30 caps 1RF To terazosin 10 mg PO BEDTIME 90 days 90 caps 1RF Discontinued finasteride Daily tablet Discontinued Reason: Duplicate 5 mg PO DAILY 30 days 30 tabs 1RF BPH Patient Instructions: The patient had an opportunity to ask questions regarding the treatment plan. All questions were answered. Physical exam, labs, and imaging were discussed and reviewed in detail. As well as risks, benefits, and discussion of treatment choices. No major barriers to understanding were identified. The patient expressed understanding and agreement with the above treatment plan. The patient was made aware they should contact our office by phone for worsening of their current condition, the appearance of new symptoms, or with any questions or concerns. Compliance is encouraged with any medications and follow up testing that is ordered. It is a privilege to be allowed the opportunity to participate in? your urological care.? Again, if you have any questions or concerns If you have any questions or concerns please do not hesitate to contact me. The office is [phone]. This note is constructed using voice recognition software. While every effort has been made to ensure accuracy tray drier errors may have been included. Yours sincerely, QUITA Huggins Coding Level of Care Code Est Pt Level 4 (75311) Diagnoses Bladder outlet obstruction N32.0 Urinary retention with incomplete bladder emptying R33.9 Enlarged prostate N40.0 Elevated PSA R97.20 CPT Codes Post Residual Void - PVR CPT Code: 53508-Nvch Void Residual by ultrasound ([id number])
== END 2023-07-19 09:45 | disposition home or self-care (01) ==
PROVIDERS: PCP Internal Medicine; Visit Provider Nurse Practitioner Family
DX: N32.0 Bladder-neck obstruction (principal); R33.9 Retention of urine, unspecified; N40.0 Benign prostatic hyperplasia without lower urinary tract symptoms; R97.20 Elevated prostate specific antigen [PSA]
CPT/HCPCS: 99214

== ENCOUNTER → 2023-07-19 08:58 | Outpatient (BNVA) | payer OTHER, SELFPAY | PROVIDERS: PCP Internal Medicine; Visit Provider Nurse Practitioner Family | DX: N40.1 Benign prostatic hyperplasia with lower urinary tract symptoms (principal); N13.8 Other obstructive and reflux uropathy; R33.8 Other retention of urine; R97.20 Elevated prostate specific antigen [PSA]; Z79.899 Other long term (current) drug therapy | CPT/HCPCS: 51798; 81003 ==

== ENCOUNTER 2023-08-03 10:45 | Outpatient (AMB) | payer OTHER, SELFPAY ==
--- NOTE | 2023-08-03 10:49 | A.OFFVIS_ITS ---
Intake Vital Signs 08/03/23 10:52 Height 5 ft 7 in Weight 194 lb 0.108 oz BMI 30.4 Blood Pressure Location Lt brachial Position Sitting Intake Visit Reasons: Follow up Gastric emptying and lab results Intake Note: Mark presents in the office as a follow up to his GES. CC: He is having a lot of concerns. Pains when he swallows and he feels like it is more of a spasm and cramping in his throat right below his esophagus. Allergies liraglutide [From Victoza] Allergy (Intermediate, Verified 08/03/23 10:52) Hives Seasonal Allergies Adverse Reaction (Intermediate, Verified 08/03/23 10:52) Itchy Eyes demoral Allergy (Intermediate, Uncoded 08/03/23 10:52) Hives HPI Follow up Gastric emptying and lab results HPI Details LAST VISIT Abdominal discomfort Patient reports epigastric pain and upper abdominal cramping. Will change his treatment to lansoprazole in the morning and sucralfate twice a day. Discussed with patient going for gastric emptying testing. Patient might have gastroparesis. Diabetes not very well controlled. Should probably follow up with endocrinology. Epigastric pain Epigastric pain not necessarily postprandially. Changing treatment as mentioned above. Will order lipase, rule out pancreatic insufficiency GERD (gastroesophageal reflux disease) Will change treatment to lansoprazole and sucralfate twice a day. Discussed with patient avoiding dietary triggers and late night snacking. She eating smaller meals and more often. Will rule out gastroparesis, pancreatic insufficiency. In the meantime patient can start taking Creon with meals up to 4 times a day. Postprandial abdominal bloating Postprandial abdominal bloating. Discussed with patient avoiding eating carbs and sugars. Will order lipase, liver profile, transglutaminase, RAST allergen, vitamin B12, folate, vitamin B3 and vitamin-D levels. I will see patient in 3 weeks, sooner on as needed basis. Patient is agreeable to this plan and verbalizes understanding of instructions. He was given the opportunity to ask questions and all questions answered. ? Thank you for allowing me to participate in his care Plan Orders Orders Pancreatic Elastase-1 Today R10.9 - Unspecified abdominal pain Lipase Today R10.9 - Unspecified abdominal pain Liver Panel Today R10.9 - Unspecified abdominal pain Transglutaminase IgA Today R10.9 - Unspecified abdominal pain Transglutaminase Ab IgG Today R10.9 - Unspecified abdominal pain NM gastric emptying study Today K21.9 - Gastro-esophageal reflux disease without esophagitis Rast Allergen Today K21.9 - Gastro-esophageal reflux disease without esophagitis Vitamin A Today K86.89 - Other specified diseases of pancreas Vitamin B12 and Folate Today R19.7 - Diarrhea, unspecified Vitamin B3 (Niacin) Today K86.89 - Other specified diseases of pancreas Vitamin D 25-OH (D2 and D3) Today E55.9 - Vitamin D deficiency, unspecified TODAY'S VISIT: Patient is here today accompanied by his significant other. Patient reports that he has been feeling same or even worse. Patient experiencing trouble swallowing epigastric pain. Postprandial abdominal bloating. Inability to eat more than few by. Patient reports upper abdominal discomfort. Unable to move his bowels daily. Occasional postprandial loose stools. Patient hospitalized in May for UTI. Patient has not done his blood work yet IBS. Gastric emptying study showed mild gastroparesis. PFSH Surgical History Hx of colonoscopy History of esophagogastroduodenoscopy (EGD) Hx of cystoscopy History of tonsillectomy Family History (Updated 08/03/23 @ 10:53 by CLARISSA Meza) Mother Colon cancer Social History Household Members: Spouse Housing: House Do you presently have visiting nurse or other home services: No Alcohol intake: never Patient Tobacco Use Status: Former Tobacco user Cigarette Packs Per Day: 1 Years Smoked: 8 e-Cigarette/Vaping Use: Never Used Second Hand Smoke Exposure: No Advance Directives Date on File: 01/17/23 service: No Current occupational status: retired Cognitive needs: No Hearing needs: No Vision needs: No Review of Systems Const Denies weight gain and Denies weight loss ENT Reports no additional complaints, Reports dysphagia and Denies odynophagia Card Reports no additional complaints Resp Reports no additional complaints GI Reports abdominal pain, Denies belching, Denies melena, Reports bloating, Denies change in bowel habits, Reports constipation, Reports GI cramping, Reports dysphagia, Denies excessive flatus, Denies dyspepsia, Reports heartburn, Denies diarrhea, Denies loose stools, Denies nausea, Denies odynophagia and Denies vomiting Reports no additional complaints Musc Reports no additional complaints Neuro Reports no additional complaints Psych Reports no additional complaints Endo Reports no additional complaints Physical Exam Vital Signs: BMI result Body Mass Index 30.4 Const General: no acute distress and well developed Nutritional Appearance: obese Orientation/consciousness: patient oriented x3 HEENT Head: Yes normal to inspection, Yes normocephalic and Yes atraumatic Face and sinus: Yes normal facial exam Mouth: Normal oral and palatal mucosa present Throat: Yes posterior oropharynx normal, Yes tonsils normal and Yes uvula midline Eyes General: appearance normal, both eyes and all related structures Neck Neck: Yes normal visual inspection, Yes full ROM and Yes trachea midline Thyroid: Thyroid normal Resp Effort & Inspection: normal respiratory effort, able to speak in complete sentences, no tracheal deviation and symmetric chest movement Auscultation: clear to auscultation bilaterally Cardio Rate: regular rate Heart sounds: S1 normal heart sound present and S2 normal heart sound present GI Inspection: Yes normal to inspection, No distended and Yes obesity Palpation (GI): Soft to palpation, not firm, nontender and No hepatosplenomegaly present Auscultation: normal bowel sounds General: Yes no CVA tenderness Back/Spine/Pelvis Back: no CVA tenderness Skin General skin exam: elasticity normal, turgor normal and dry skin Neuro General: patient oriented x3 Psych Appearance: grossly normal Mental Status: mental status grossly normal Results Reviewed Results Reviewed: GASTRIC EMPTYING STUDY FINDINGS: There is good visualization of activity in the stomach immediately post ingestion. As the study progresses, there is fair to good clearance of activity from the stomach and visualization of progressively increasing small bowel activity. However, at the end of the study there is mild abnormal retention of activity in the stomach at 4 hours. Retention in the stomach at each time interval was: 1 hour 74% (normal 37%-90%) 2 hours 58% (normal 30%-60%) 3 hours 30% 4 hours 13% (normal 0%-10%) NM/NM gastric emptying study IMPRESSION: Abnormal study. There is mild abnormal retention of solid food in the stomach at 4 hours. Assessment & Plan Assessment & Plan (1) Abdominal discomfort: Code(s): R10.9 - Unspecified abdominal pain (2) RUQ abdominal pain: Code(s): R10.11 - Right upper quadrant pain (3) SOBOE (shortness of breath on exertion): Code(s): R06.02 - Shortness of breath (4) GERD (gastroesophageal reflux disease): Code(s): K21.9 - Gastro-esophageal reflux disease without esophagitis (5) Constipation: Code(s): K59.00 - Constipation, unspecified Qualifiers: Constipation type: slow transit constipation Qualified Code(s): K59.01 - Slow transit constipation Plan Right upper quadrant pain postprandially and epigastric discomfort. Will send patient for HIDA scan. Patient was encouraged to get his lab work done today. Complains of shortness of breath with and without exertion will send to Pulmonary Medicine. Patient denies any chest pain. Patient will start taking famotidine at bedtime for acid reflux, discussed with patient avoiding dietary triggers and late night snacking. Patient will start taking MiraLax daily and Colace. Patient will return in 3 months, sooner on as needed basis. Patient is agreeable to this plan and verbalizes understanding of instructions. He was given the opportunity to ask questions and all questions answered. Thank you for allowing me to participate in his care Orders: Orders NM hepatobiliary w pharm 08/03/23 R10.9 - Unspecified abdominal pain, R10.11 - Right upper quadrant pain Referrals Pulmonary Medicine Referral R06.02 - Shortness of breath Medications: New polyethylene glycol 3350 (Miralax) 17 grams PO DAILY 510 grams 2RF docusate calcium 240 mg PO BEDTIME 30 caps 3RF famotidine 40 mg PO BEDTIME 30 tabs 3RF K21.9 - Gastro-esophageal reflux disease without esophagitis Discontinued sucralfate Discontinued Reason: Doctor's Order 1 g PO BID 60 tabs 3RF Coding Level of Care Code Est Pt Level 4 (49712) Diagnoses Abdominal discomfort R10.9 RUQ abdominal pain R10.11 SOBOE (shortness of breath on exertion) R06.02 GERD (gastroesophageal reflux disease) K21.9 Slow transit constipation K59.01 Constipation type: slow transit constipation Time Spent (min) 40 Comment 25 minutes spent with patient and additional 15 minutes spent reviewing his records.
[2023-08-03 10:52] VITALS: BMI 30.4
== END 2023-08-03 12:04 | disposition home or self-care (01) ==
PROVIDERS: PCP Internal Medicine; Visit Provider Nurse Practitioner Family
DX: R10.9 Unspecified abdominal pain (principal); R10.11 Right upper quadrant pain; R06.02 Shortness of breath; K21.9 Gastro-esophageal reflux disease without esophagitis; K59.01 Slow transit constipation
CPT/HCPCS: 99214

== ENCOUNTER 2023-08-03 10:45 | Outpatient (REF) | payer OTHER, SELFPAY ==
[2023-08-03 12:56] LABS: Alanine Aminotransferase 9 U/L (0-40); Alkaline Phosphatase 137 U/L (39-117); Aspartate Amino Transferase 14 U/L (5-37); Bilirubin Direct 0.3 mg/dL (0.0-0.5); Bilirubin Total 0.7 mg/dL (0.0-1.0); Lipase 32 U/L (8-78); Total Protein 7.4 g/dL (6.5-8.0)
[2023-08-03 13:13] LABS: PSA,Total (Free>4and<10) 0.81 ng/mL (0.00-4.00)
[2023-08-03 13:26] LABS: Folate 4.9 ng/mL (> or = 4.0); Vitamin B12 344 pg/mL (200-900)
[2023-08-05 13:03] LABS: Transglutaminase Ab IgG <1.0 U/mL; Transglutaminase IgA <1.0 U/mL
[2023-08-07 17:23] LABS: Vitamin D 25-OH, D2 <4 ng/mL; Vitamin D 25-OH, D3 35 ng/mL; Vitamin D 25-OH, Total 35 ng/mL (30-100)
[2023-08-09 04:49] LABS: Vitamin A 82 mcg/dL (38-98)
[2023-08-09 21:23] LABS: Nicotinamide <20 ng/mL; Vit B3 - Nicotinic Acid <20 ng/mL
== END 2023-08-03 10:46 | disposition home or self-care (01) ==
LOC: HO.LAB 10:45
PROVIDERS: Absent Provider Nurse Practitioner Family; PCP Internal Medicine; Visit Provider Nurse Practitioner Family
DX: R10.11 Right upper quadrant pain (principal); K21.9 Gastro-esophageal reflux disease without esophagitis; R06.02 Shortness of breath; K59.01 Slow transit constipation; Z12.5 Encounter for screening for malignant neoplasm of prostate; R97.20 Elevated prostate specific antigen [PSA]; K86.89 Other specified diseases of pancreas; R19.7 Diarrhea, unspecified; E55.9 Vitamin D deficiency, unspecified
CPT/HCPCS: 36415; 80076; 82306; 82607; 82746; 83690; 84153; 84590; 84591; 86003; 86364

== ENCOUNTER 2023-09-22 13:00 | Outpatient (REF) | payer OTHER, SELFPAY ==
[2023-09-29 22:08] LABS: Pancreatic Elastase-1 >500 mcg/g
== END 2023-09-22 13:01 | disposition home or self-care (01) ==
LOC: HO.LNP 13:00
PROVIDERS: Visit Provider Nurse Practitioner Family
DX: R10.9 Unspecified abdominal pain (principal)
CPT/HCPCS: 82656

== ENCOUNTER → 2023-09-26 07:43 | Outpatient (REF) | payer OTHER, SELFPAY | LOC: HO.NUCMED 07:43 | PROVIDERS: PCP Internal Medicine; Visit Provider Nurse Practitioner Family | DX: R10.11 Right upper quadrant pain (principal) | CPT/HCPCS: 78227; A9537; J2805 ==

== ENCOUNTER 2023-10-07 13:05 | Outpatient (AMB) | payer OTHER, SELFPAY ==
--- NOTE | 2023-10-07 13:09 | MHC.OFFVIS ---
Intake Vital Signs 10/07/23 13:11 Height 5 ft 7 in Weight 186 lb BMI 29.1 BP 136/68 Blood Pressure Location Rt brachial Position Sitting Pulse 57 Pulse Source Pulse Oximeter Pulse Oximetry (%) 96 Oxygen Delivery Method Room Air Intake Visit Reasons: shortness of breath/clearance Supervisor [employer] Required: No Obstetrics Nurse: Obstetrics Nurse offered & declined Accompanied by: Self / Same As Patient Allergies liraglutide [From Victoza] Allergy (Intermediate, Verified 10/07/23 13:16) Hives meperidine [From Demerol] Allergy (Intermediate, Verified 10/07/23 13:16) Hives Seasonal Allergies Adverse Reaction (Intermediate, Verified 10/07/23 13:16) Itchy Eyes Medication List - Last Reconciled 10/07/23 by Simi Thayer LPN aspirin 81 mg PO DAILY atorvastatin 80 mg PO DAILY cholecalciferol (vitamin D3) 50 mcg PO DAILY clopidogrel 75 mg PO DAILY docusate calcium 240 mg PO BEDTIME dorzolamide 2% 1 drp ophthalmic-Left Q12H famotidine 40 mg PO BEDTIME finasteride 5 mg PO DAILY 90 days furosemide 40 mg PO DAILY insulin degludec (Tresiba FlexTouch U-100 insulin) 17 units subcut BID isosorbide mononitrate ER 30 mg PO DAILY latanoprost 0.005% 1 drp ophthalmic (eye) BEDTIME metoprolol succinate ER 100 mg PO DAILY nitroglycerin ER 2.5 mg PO BID pantoprazole 40 mg PO DAILY@0630 polyethylene glycol 3350 (Miralax) 17 grams PO DAILY terazosin 10 mg PO BEDTIME 90 days timolol maleate 0.5% 1 drp ophthalmic (eye) DAILY HPI shortness of breath/clearance HPI Details Mark is a pleasant 73 year old male, former smoker with less than 10 pack year history, with significant underlying cardiac history with multivessel bypass, CAD s/p stent, NSTEMI, HF EF 45-50%, asthma, environmental allergies, GERD and KRYSTLE on CPAP. Today he presents for pulmonary evaluation, referred by GI for dyspnea and also needs preoperative evaluation for urology. He has an upcoming prostate biopsy at the end of the month. He reports dyspnea with minimal exertion and intermittent dry cough. Denies wheezing, or chest tightness. He is not on any respiratory medications, although reports prior PCP/reproduction order processor had him on advair, which was helpful. He denies any occupational exposures. He is reportedly compliant with CPAP therapy, [employer] is his [employer] company. He is followed by [facility]. He does note BLE and orthopnea. He is on daily lasix. Recent echo performed, not available today. He is also followed by Dr. Escamilla for CKD. He previously required dialysis, but has recently discontinued due to improvements. [facility] Medical History (Updated 10/11/23 @ 17:18 by Vania Lopes NP) KRYSTLE on CPAP Type 2 diabetes mellitus Ischemic cardiomyopathy On anticoagulant therapy Elevated cholesterol CAD (coronary artery disease) HTN (hypertension) Spinal stenosis NSTEMI (non-ST elevated myocardial infarction) Bladder outlet obstruction Chronic renal insufficiency Surgical History (Updated 09/01/23 @ 11:01 by Daiana Nazario RN) Hx of coronary artery bypass graft Hx of cardiac catheterization Hx of colonoscopy History of esophagogastroduodenoscopy (EGD) Hx of cystoscopy History of tonsillectomy Family History (Updated 08/03/23 @ 10:53 by CLARISSA Meza) Mother Colon cancer Social History (Updated 10/07/23 @ 13:19 by Simi Thayer LPN) Household Members: Spouse Housing: House Do you presently have visiting nurse or other home services: No Alcohol intake: never Patient Tobacco Use Status: Former Tobacco user Cigarette Packs Per Day: 1 Years Smoked: 8 e-Cigarette/Vaping Use: Never Used Second Hand Smoke Exposure: No Advance Directives Date on File: 01/17/23 service: No Current occupational status: retired Cognitive needs: No Hearing needs: No Vision needs: No Review of Systems Const Denies chills, Denies excessive sweating, Denies fever(s), Denies headache(s) and Denies night sweats Eyes Denies dry eyes, Denies irritation and Denies itchy eyes ENT Reports Normal hearing present, Denies headache(s), Denies nasal congestion, Denies nasal discharge and Denies sore throat Card Denies chest pain, Denies chest pain at rest, Denies chest pain with activity, Denies claudication and Denies paroxysmal nocturnal dyspnea Resp Denies chest congestion, Denies cough, Denies excessive phlegm production, Denies pain with cough, Denies stridor and Denies wheezing Musc Denies myalgias Neuro Reports Normal hearing present and Denies headache(s) Endo Denies excessive sweating Jacob/Lymph Denies lymphadenopathy Aller/Immun Denies itchy eyes, Denies seasonal rhinorrhea and Denies wheezing Physical Exam Vital Signs: Last Vital Signs Pulse 57 10/07/23 13:11 BP 136/68 10/07/23 13:11 Pulse Ox 96 10/07/23 13:11 Oxygen Delivery Method Room Air 10/07/23 13:11 BMI result Body Mass Index 29.1 Const General: cooperative, healthy appearing, comfortable, no acute distress, well developed and alert Nutritional Appearance: obese Orientation/consciousness: patient oriented x3 Limitations: ambulation with walker HEENT Head: Yes normal to inspection, Yes normocephalic and Yes atraumatic Ears: hearing grossly normal bilaterally and external ears normal Eyes General: appearance normal, both eyes and all related structures Eyelids: Yes eyelids normal Sclerae: sclerae normal EOM: EOMs intact bilaterally Neck Neck: Yes normal visual inspection and Yes no lymphadenopathy Lymphatic: no lymphadenopathy noted Chest Chest palpation & inspection: normal inspection of the chest Resp Effort & Inspection: normal respiratory effort, able to speak in complete sentences, no audible wheezes, no cough, no stridor, not tachypneic, no tripod positioning and no use of accessory muscles Auscultation: clear to auscultation bilaterally Cardio Jugular venous distension: no JVD Rate: regular rate Rhythm: regular rhythm Skin Other: warm, dry General skin exam: no rashes or lesions noted Neuro General: patient oriented x3 Cranial nerves: Yes Normal hearing present Cognition (Neuro): normal cognition Extrem Other: 2+ pitting edema BLE General: Yes normal to inspection and Yes capillary refill normal Psych Appearance: grossly normal and well kempt Speech and movement: Normal speech and movement present and Clear speech present Affect: normal affect Attitude: cooperative Thought process: Normal thought process present Thought content: Normal thought content present Insight: Good insight present (Psych) Judgement: Good judgement present (Psych) Office Procedures 6 Minute Walk Time:: 13:55 SPO2 % at rest: 99 Pulse at rest: 54 SPO2 % during excercise: 92 Pulse during excercise: 65 SPO2 % after excercise: 98 Pulse after excercise: 56 Distance in yards walked: 350 Malick Score: 6 Performance Observations:: Patient walked on level ground using a walker. Gait is slow. Patient was able to maintain O2 saturation of 92% or greater for the entire walk. Patient reports he tires easily with walking any distance but notices no respiratory distress. Patient did not require the use of supplemental oxygen. [id number] - 6 Minute Walk Assessment & Plan Assessment & Plan (1) Dyspnea: Code(s): R06.00 - Dyspnea, unspecified (2) Asthma: Code(s): J45.909 - Unspecified asthma, uncomplicated (3) Environmental allergies: Code(s): Z91.09 - Other allergy status, other than to drugs and biological substances (4) KRYSTLE on CPAP: Code(s): G47.33 - Obstructive sleep apnea (adult) (pediatric) (5) Ischemic cardiomyopathy: Comment: follows w/[facility] Code(s): I25.5 - Ischemic cardiomyopathy (6) Pulmonary nodule: Code(s): R91.1 - Solitary pulmonary nodule Plan Peter's symptoms are likely multifactorial with contribution from pulmonary, cardiac and deconditioning etiologies. Will trial on ICS. Discussed RAST testing but patient would like to defer at this time. Attempted spirometry in office but patient had difficulties performing, therefore PFT will be deferred at this time. 6MWT test performed and patient does not require supplemental oxygen at this time. Prior abdominal CT performed revealed RML 3 mm nodule, will obtain dedicated chest CT to thoroughly evaluate. There appears to be a significant cardiac contribution to patient's dyspnea, with orthopnea and BLE pitting edema, patient is followed by cardiology. However from a pulmonary standpoint, patient would be a low risk for pulmonary complications for proposed urologic procedure. Consider perioperative bronchidilators and if intubated, consider extubating to BiPAP. All questions were answered and patient is in agreement of plan. Will follow up in 3 months to review results and response to inhaler, or sooner if needed. Orders: Orders AMB 6 minute walk 10/07/23 R06.00 - Dyspnea, unspecified CT chest wo IV con Today R91.1 - Solitary pulmonary nodule Medications: New budesonide 90 mcg/actuation (Pulmicort Flexhaler) 1 inh inhalation BID 1 ea 3RF Coding Level of Care Code New Pt Level 4 (25353) Diagnoses Dyspnea R06.00 Asthma J45.909 Environmental allergies Z91.09 KRYSTLE on CPAP G47.33 Ischemic cardiomyopathy I25.5 Pulmonary nodule R91.1 CPT Codes Coding ([id number])
[2023-10-07 13:11] VITALS: BP 136/68; PULSE 57; O2SAT 96; BMI 29.1
[2023-10-07 14:11] VITALS: PULSE 54; O2SAT 99
== END 2023-10-07 14:34 | disposition home or self-care (01) ==
PROVIDERS: PCP Internal Medicine; Visit Provider Nurse Practitioner Family
DX: R06.00 Dyspnea, unspecified (principal); J45.909 Unspecified asthma, uncomplicated; Z91.09 Other allergy status, other than to drugs and biological substances; G47.33 Obstructive sleep apnea (adult) (pediatric)
CPT/HCPCS: 94618; 99204

== ENCOUNTER → 2023-10-07 13:05 | Outpatient (BNVA) | payer OTHER, SELFPAY | PROVIDERS: PCP Internal Medicine; Visit Provider Nurse Practitioner Family | DX: J45.909 Unspecified asthma, uncomplicated (principal); R06.00 Dyspnea, unspecified; I25.5 Ischemic cardiomyopathy; R91.1 Solitary pulmonary nodule; G47.33 Obstructive sleep apnea (adult) (pediatric); Z91.09 Other allergy status, other than to drugs and biological substances | CPT/HCPCS: 94618 ==

== ENCOUNTER 2023-11-03 13:58 | Outpatient (REF) | payer OTHER, SELFPAY ==
--- NOTE | ~2023-11-03 | CT_ITS ---
EXAMINATION: CT CHEST WITHOUT CONTRAST CLINICAL INFORMATION: Solitary pulmonary nodule. COMPARISON: CT abdomen/pelvis 06/12/2023 revealed: A 3 mm pulmonary nodule right middle lobe (image [id number], series 4) , chest radiograph 06/11/2023. TECHNIQUE: Multidetector volumetric CT imaging of the chest was done. Axial MIP volume rendering provided. Sagittal and coronal reformatted images were obtained. This CT examination was performed using dose optimization techniques as appropriate, variously including the following: *Automated exposure control *Adjustment of mA and/or kV according to patient size (this includes techniques or standardized protocols for targeted exams where dose is matched to indication/reason for exam; i.e. extremities or head) *Use of iterative reconstruction technique DLP: 210 mGy-cm FINDINGS: LUNGS: The previously seen 3 mm pulmonary nodule in the right middle lobe is unchanged and according to Fleischner Society criteria, no follow-up was or is indicated. Some other smaller perifissural nodules are present on the right, also unchanged. The lungs are clear with no evidence of inflammation or new flat worrisome masses. MEDIASTINUM: Heart size upper limits of normal. Multiple small mediastinal lymph nodes are present largest measuring 1.5 cm in the precarinal region. Patient status post median sternotomy. CORONARY ARTERY CALCIFICATION: Extensive triple-vessel coronary calcium is visualized on this study. PLEURA: There is a new small left pleural effusion compared to the prior study. There is a new trace right pleural effusion present. There is no pleural mass or thickening. AXILLA: No lymphadenopathy. UPPER ABDOMEN: Unremarkable. OSSEOUS STRUCTURES: Mild degenerative changes are present in the spine. No bony destructive lesions. CT/CT chest wo IV con IMPRESSION: 1. Stable 3 mm right middle lobe pulmonary nodule. 2. New small left and trace right pleural effusions. 3. Other incidental findings as described above. According to the UPDATED 2017 Fleischner Society recommendations, the advised follow-up imaging for solid nodules <6 mm in the middle/lower lobes is no routine follow up.
== END 2023-11-03 13:59 | disposition home or self-care (01) ==
LOC: HO.CT 13:58
PROVIDERS: PCP Internal Medicine; Visit Provider Nurse Practitioner Family
DX: R91.1 Solitary pulmonary nodule (principal)
CPT/HCPCS: 71250

== ENCOUNTER 2023-12-07 10:19 | Outpatient (AMB) | payer OTHER, SELFPAY ==
[2023-12-07 10:24] VITALS: BP 190/110; PULSE 58; BMI 29.8
--- NOTE | 2023-12-07 10:24 | A.OFFVIS_ITS ---
Intake Vital Signs 12/07/23 10:24 Height 5 ft 7 in Weight 190 lb 0.615 oz BMI 29.8 BP 190/110 H Blood Pressure Location Lt brachial Position Sitting Pulse 58 Pulse Source Pulse Oximeter Intake Visit Reasons: r/s from 11/08/23 Intake Note: Pt presents to the office today for a follow up for abdominal discomfort. Pt states he is having constant abdominal pain,cramping, and spasms. Pt states he gets random pains but usually it is triggered from eating. Pt states he gets nauseous but only dry heaves with no vomiting. Pt states his acid reflux is almost gone. Pt denies any diarrhea. Allergies liraglutide [From Victoza] Allergy (Intermediate, Verified 12/14/23 12:47) Hives meperidine [From Demerol] Allergy (Intermediate, Verified 12/14/23 12:47) Hives Seasonal Allergies Adverse Reaction (Intermediate, Verified 12/14/23 12:47) Itchy Eyes HPI r/s from 11/08/23 HPI Details LAST VISIT Abdominal discomfort RUQ abdominal pain SOBOE (shortness of breath on exertion) GERD (gastroesophageal reflux disease) Constipation Plan Right upper quadrant pain postprandially and epigastric discomfort. Will send patient for HIDA scan. Patient was encouraged to get his lab work done today. Complains of shortness of breath with and without exertion will send to Pulmonary Medicine. Patient denies any chest pain. Patient will start taking famotidine at bedtime for acid reflux, discussed with patient avoiding dietary triggers and late night snacking. Patient will start taking MiraLax daily and Colace. Patient will return in 3 months, sooner on as needed basis. Patient is agreeable to this plan and verbalizes understanding of instructions. He was given the opportunity to ask questions and all questions answered. ? Thank you for allowing me to participate in his care Orders Orders NM hepatobiliary w pharm 08/03/23 R10.9, R10.11 Referrals Pulmonary Medicine Referral R06.02 Medications New polyethylene glycol 3350 (Miralax) 17 grams PO DAILY 510 grams 2RF docusate calcium 240 mg PO BEDTIME 30 caps 3RF famotidine 40 mg PO BEDTIME 30 tabs 3RF K21.9 Discontinued sucralfate Discontinued Reason: Doctor's Order 1 g PO BID 60 tabs 3RF TODAY'S VISIT: Patient is here today for follow-up and to discuss HIDA scan results. Patient is accompanied by his . Patient was diagnosed with biliary dyskinesia, 18% of gallbladder EF. Patient continues to have a postprandial abdominal pain and right upper quadrant. Will refer him to surgery. Patient reports that he is moving his bowels better now has been taking MiraLax and Colace. Patient states that he is taking famotidine at bedtime to help him with his acid reflux at night time and he avoids eating late at night. Patient is also taking pantoprazole in the morning half an hour before breakfast. Denies dyspepsia, dysphagia or odynophagia. PFSH Medical History KRYSTLE on CPAP Type 2 diabetes mellitus Ischemic cardiomyopathy On anticoagulant therapy Elevated cholesterol CAD (coronary artery disease) HTN (hypertension) Spinal stenosis NSTEMI (non-ST elevated myocardial infarction) Bladder outlet obstruction Chronic renal insufficiency Surgical History Hx of coronary artery bypass graft Hx of cardiac catheterization Hx of colonoscopy History of esophagogastroduodenoscopy (EGD) Hx of cystoscopy History of tonsillectomy Family History Mother Colon cancer Social History Household Members: Spouse Housing: House Do you presently have visiting nurse or other home services: No Alcohol intake: never Patient Tobacco Use Status: Former Tobacco user Cigarette Packs Per Day: 1 Years Smoked: 8 e-Cigarette/Vaping Use: Never Used Second Hand Smoke Exposure: No Advance Directives Date on File: 01/17/23 service: No Current occupational status: retired Cognitive needs: No Hearing needs: No Vision needs: No Physical Exam Vital Signs: Last Vital Signs Pulse 58 12/07/23 10:24 BP 190/110 H 12/07/23 10:24 BMI result Body Mass Index 29.8 Const Other: Patient ambulating using wheeled walker General: healthy appearing and no acute distress Nutritional Appearance: obese Orientation/consciousness: patient oriented x3 Resp Effort & Inspection: normal respiratory effort, able to speak in complete sentences, no tracheal deviation and symmetric chest movement Auscultation: clear to auscultation bilaterally Cardio Rate: regular rate GI Inspection: Yes normal to inspection, No distended and Yes obesity Palpation (GI): Soft to palpation, not firm, nontender and No hepatosplenomegaly present Auscultation: normal bowel sounds General: Yes no CVA tenderness Back/Spine/Pelvis Back: no CVA tenderness Skin General skin exam: elasticity normal, turgor normal and dry skin Neuro General: patient oriented x3 Psych Appearance: grossly normal Mental Status: mental status grossly normal Results Reviewed Results Reviewed: HIDA scan FINDINGS: There is good concentration of activity in the liver by 5 minutes post injection. Biliary activity is visualized by 10 minutes. The gallbladder is well visualized by 30 minutes. Small bowel is well visualized by 32 minutes. At 60 minutes post radiopharmaceutical injection, a 30-minute infusion of 1.6 micrograms Sincalide was then begun and an additional 40 minutes of images were obtained. There is poor emptying of the gallbladder. By the end of the study there is good clearance of activity from the liver and visualization of diffuse small bowel activity. The calculated gallbladder ejection fraction is 18% (normal gallbladder ejection fraction is greater than 35%). NM/NM hepatobiliary w pharm IMPRESSION: Visualization of the gallbladder is evidence of a patent cystic duct and strong evidence against the diagnosis of acute cholecystitis. The common bile duct is patent. Gallbladder emptying and ejection fraction are abnormal. Liver function appears normal. Assessment & Plan Assessment & Plan (1) Biliary dyskinesia: Code(s): K82.8 - Other specified diseases of gallbladder (2) Abdominal pain: Code(s): R10.9 - Unspecified abdominal pain Qualifiers: Abdominal location: right upper quadrant Qualified Code(s): R10.11 - Right upper quadrant pain Plan Referral to surgery for possible cholecystectomy due to biliary dyskinesia. Patient will go for MRCP, pain also in right upper quadrant. Patient can start taking dicyclomine once or twice a day. Patient was educated about good bowel regimen as he might get constipated. Continue taking MiraLax and Colace. I will see patient in 3 months, sooner on as needed basis. Both patient and his are agreeable to plan of care and verbalizes understanding of instructions. They were given the opportunity to ask questions and all questions answered. Thank you for allowing me to participate in his care Orders: Orders MRCP 12/07/23 K82.8 - Other specified diseases of gallbladder, R10.9 - Unspecified abdominal pain Referrals General Surgery Referral K82.8 - Other specified diseases of gallbladder Medications: New dicyclomine 10 mg PO BID PRN 90 caps 2RF abdominal discomfort K58.9 - Irritable bowel syndrome without diarrhea Coding Level of Care Code Est Pt Level 4 (86776) Diagnoses Biliary dyskinesia K82.8 Right upper quadrant abdominal pain R10.11 Abdominal location: right upper quadrant Time Spent (min) 40 Comment Twenty-five minutes spent with patient and additional 15 minutes spent reviewing his recor
== END 2023-12-07 11:11 | disposition home or self-care (01) ==
PROVIDERS: PCP Internal Medicine; Visit Provider Nurse Practitioner Family
DX: K82.8 Other specified diseases of gallbladder (principal); R10.11 Right upper quadrant pain
CPT/HCPCS: 99214

== ENCOUNTER → 2023-12-07 10:19 | Outpatient (BNVA) | payer OTHER, SELFPAY | PROVIDERS: PCP Internal Medicine; Visit Provider Nurse Practitioner Family ==

== ENCOUNTER 2023-12-14 12:36 | Outpatient (AMB) | payer OTHER, SELFPAY ==
--- NOTE | 2023-12-14 12:46 | MHC.OFFVIS ---
Intake Vital Signs 12/14/23 12:47 Height 5 ft 7 in Weight 189 lb BMI 29.6 BP 142/72 H Blood Pressure Location Rt brachial Position Sitting Pulse 72 Intake Visit Reasons: Gallbladder Intake Note: Patient referred by Yasmine Melgar PA-C for gallbladder. Patient c/o: on and off pain on RUQ for 2yrs. Has abd MRI scheduled for next Tuesday. HIDA scan: 09-26-23. Inhalation Therapist Required: No Accompanied by: Self / Same As Patient Allergies liraglutide [From Victoza] Allergy (Intermediate, Verified 12/14/23 12:47) Hives meperidine [From Demerol] Allergy (Intermediate, Verified 12/14/23 12:47) Hives Seasonal Allergies Adverse Reaction (Intermediate, Verified 12/14/23 12:47) Itchy Eyes HPI HPI Comments History of Present Illness Details Patient presents here for evaluation of right upper quadrant/epigastric abdominal pain occasional radiating around to his right back. He has had symptoms since 2021. He has had 2 hospitalizations at [facility] for what was initially told to him was gallstone pancreatitis and another episode which he said was diverticulitis. He has had some weight loss over the last several months. Never been jaundiced before. No alcohol abuse history. Patient has had an extensive workup regarding this. This has included upper endoscopy, CT scan, ultrasound, gastric emptying study, and HIDA scan the latter of which demonstrates findings consistent with biliary dyskinesia. Chart was reviewed and patient evaluated. Status post CABG in 2018. [facility] Medical History KRYSTLE on CPAP Type 2 diabetes mellitus Ischemic cardiomyopathy On anticoagulant therapy Elevated cholesterol CAD (coronary artery disease) HTN (hypertension) Spinal stenosis NSTEMI (non-ST elevated myocardial infarction) Bladder outlet obstruction Chronic renal insufficiency Surgical History Hx of coronary artery bypass graft Hx of cardiac catheterization Hx of colonoscopy History of esophagogastroduodenoscopy (EGD) Hx of cystoscopy History of tonsillectomy Family History Mother Colon cancer Social History Household Members: Spouse Housing: House Do you presently have visiting nurse or other home services: No Alcohol intake: never Patient Tobacco Use Status: Former Tobacco user Cigarette Packs Per Day: 1 Years Smoked: 8 e-Cigarette/Vaping Use: Never Used Second Hand Smoke Exposure: No Advance Directives Date on File: 01/17/23 service: No Current occupational status: retired Cognitive needs: No Hearing needs: No Vision needs: No Physical Exam Vital Signs: Last Vital Signs Pulse 72 12/14/23 12:47 BP 142/72 H 12/14/23 12:47 BMI result Body Mass Index 29.6 Const Other: Patient uses a walker secondary to a fall with sciatic injury with limited recovery Eyes Other: Anicteric Chest Other: Chest breath sounds bilaterally, sternotomy scar well healed GI Other: Abdomen mildly corpulent, soft, benign Assessment & Plan Assessment & Plan (1) Biliary dyskinesia: Code(s): K82.8 - Other specified diseases of gallbladder Plan Patient is tentatively scheduled for an MRCP ordered by GI for next week. He will see me after the study. The evaluation was done by phone conference along with his daughter and all questions answered. He will see me as noted above and further interventions studies will be directed by the patient's clinical course, and results of MRCP. Coding Level of Care Code New Pt Level 4 (97703) Diagnoses Biliary dyskinesia K82.8
[2023-12-14 12:47] VITALS: BP 142/72; PULSE 72; BMI 29.6
== END 2023-12-14 13:27 | disposition home or self-care (01) ==
PROVIDERS: PCP Internal Medicine; Referring Provider Nurse Practitioner Family; Visit Provider Surgery
DX: K82.8 Other specified diseases of gallbladder (principal)
CPT/HCPCS: 99204

== ENCOUNTER → 2023-12-14 12:36 | Outpatient (BNVA) | payer OTHER, SELFPAY | PROVIDERS: PCP Internal Medicine; Referring Provider Nurse Practitioner Family; Visit Provider Surgery ==

== ENCOUNTER 2023-12-21 07:59 | Outpatient (REF) | payer OTHER, SELFPAY ==
--- NOTE | ~2023-12-21 | MR_ITS ---
EXAMINATION: MR ABDOMEN WITHOUT CONTRAST CLINICAL INFORMATION: Pain and nausea. Evaluate disease of gallbladder. COMPARISON: Nuclear medicine hepatobiliary scan from 09/26/2023. Abdomen CT from 06/12/2023. Chest CT from 11/03/2023. TECHNIQUE: MR imaging of the abdomen is performed using standard sequences on a high-field magnet without intravenous contrast. The examination includes use of heavily T2-weighted MRCP sequences. FINDINGS: LUNG BASES: Small left pleural effusion and trace right pleural effusion remains similar in size compared to 11/03/2023. Incidentally noted is focal prominence of subpleural fat of the posteroinferior left hemithorax. No suspicious pleural-based lesion. There appears to be mild atelectasis at the dependent aspect of each lower lobe. HEPATOBILIARY: Liver has normal size, contour and parenchymal signal. There appears to be a 0.7 cm simple cyst in the inferolateral right hepatic lobe. No evidence of hepatic mass or abscess on this noncontrast imaging examination. No cirrhotic morphology or steatosis. The evaluation of the small structures is somewhat limited by mild respiratory motion on multiple imaging sequences. The gallbladder is physiologically distended and has normal wall thickness. No evidence of cholelithiasis, gallbladder wall thickening or pericholecystic fluid. The common bile duct is 0.3 cm diameter. The evaluation of the duct is somewhat limited on some of the imaging sequences. It is not optimally visualized on the three-dimensional heavily T2-weighted MRCP sequences. There is no visible ductal stricture or choledocholithiasis. PANCREAS: Mild diffuse atrophy of the pancreas. No pancreatic ductal dilatation. A few small cysts or mildly dilated ductal side branches are present within the body of the pancreas. One of these foci is measuring up to 0.6 cm AP and the other has an elongated, tubular appearance, measures approximately 1.2 x 0.5 cm, and unable to exclude a side branch IPMN lesion. No pancreatic edema or peripancreatic fluid collection. SPLEEN: Normal. ADRENAL GLANDS: Normal. KIDNEYS: Kidneys are normal in size. No suspicious renal lesion. No hydronephrosis. Chronic mild bilateral perinephric edema is noted. BOWEL AND PERITONEUM: Stomach is underdistended. No dilated bowel loops. No abdominal free fluid. VASCULATURE: The atherosclerotic abdominal aorta is normal in caliber. Inferior vena cava is normal for noncontrast imaging examination. LYMPH NODES: No pathologic sized lymph nodes in the abdomen. SKELETAL: No acute abnormalities. Multilevel osteophyte formation of the thoracic lumbar spine. Prominent osteophytes, subarticular sclerosis and old endplate erosive changes at L3-L4. MR/MR MRCP IMPRESSION: * No acute imaging abnormalities within the abdomen. * Gallbladder and biliary tree have a normal appearance. No evidence of cholelithiasis, cholecystitis or biliary tract obstruction. * Trace right pleural effusion and small left pleural effusion are similar in size compared to 11/03/2023. * Small cystic foci are detected within the body of the pancreas. If deemed clinically appropriate, obtain pancreatic MRI follow up in the next 12-24 months.
== END 2023-12-21 08:00 | disposition home or self-care (01) ==
LOC: HO.MRI 07:59
PROVIDERS: PCP Internal Medicine; Visit Provider Nurse Practitioner Family
DX: R10.9 Unspecified abdominal pain (principal); K82.8 Other specified diseases of gallbladder
CPT/HCPCS: 74181

== ENCOUNTER 2023-12-28 13:25 | Outpatient (AMB) | payer OTHER, SELFPAY ==
--- NOTE | 2023-12-28 13:31 | MHC.OFFVIS ---
Intake Intake Visit Reasons: Gallbladder Intake Note: Patient here to f/u and discuss MRCP results. 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 We reviewed his MRCP which shows no acute pathology. HIDA scan demonstrates biliary dyskinesia. I discussed the therapeutic options with the patient which include continued dealing with this problem or consider laparoscopic possible open cholecystectomy. [facility] Medical History KRYSTLE on CPAP Type 2 diabetes mellitus Ischemic cardiomyopathy On anticoagulant therapy Elevated cholesterol CAD (coronary artery disease) HTN (hypertension) Spinal stenosis NSTEMI (non-ST elevated myocardial infarction) Bladder outlet obstruction Chronic renal insufficiency Surgical History Hx of coronary artery bypass graft Hx of cardiac catheterization Hx of colonoscopy History of esophagogastroduodenoscopy (EGD) Hx of cystoscopy History of tonsillectomy Family History Mother Colon cancer Social History Household Members: Spouse Housing: House Do you presently have visiting nurse or other home services: No Alcohol intake: never Patient Tobacco Use Status: Former Tobacco user Cigarette Packs Per Day: 1 Years Smoked: 8 e-Cigarette/Vaping Use: Never Used Second Hand Smoke Exposure: No Advance Directives Date on File: 01/17/23 service: No Current occupational status: retired Cognitive needs: No Hearing needs: No Vision needs: No Physical Exam Chest Other: Chest breath sounds bilaterally, HS 1 in 2 GI Other: Abdomen is soft, corpulent, benign. Sternotomy scar Assessment & Plan Assessment & Plan (1) Biliary dyskinesia: Code(s): K82.8 - Other specified diseases of gallbladder Plan If the patient wishes to pursue laparoscopic cholecystectomy, he will contact the office. He would like to think this over with his at home. All questions answered. Patient otherwise follow-up p.r.n. Should you wish to pursue surgery, his anticoagulation will need to be stopped prior. Coding Level of Care Code Est Pt Level 4 (91820) Diagnoses Biliary dyskinesia K82.8
== END 2023-12-28 13:53 | disposition home or self-care (01) ==
PROVIDERS: PCP Internal Medicine; Visit Provider Surgery
DX: K82.8 Other specified diseases of gallbladder (principal)
CPT/HCPCS: 99214

== ENCOUNTER → 2023-12-28 13:25 | Outpatient (BNVA) | payer OTHER, SELFPAY | PROVIDERS: PCP Internal Medicine; Visit Provider Surgery ==

== ENCOUNTER 2024-01-03 08:12 | Outpatient (AMB) | payer OTHER, SELFPAY ==
--- NOTE | 2024-01-03 08:23 | MHC.OFFVIS ---
Intake Intake Visit Reasons: 3M/FU/PVR Intake Note: Patient presents today to established treatment for Bladder Outlet Obstruction: Urology Medications: finasteride, tamsulosin Allergies to Antibiotic: No Known Allergies Blood Thinner: Aspirin and Clopidogrel PVR: 0ml's Sheetrock Applicator Required: No Accompanied by: Significant Other Allergies liraglutide [From Victoza] Allergy (Intermediate, Verified 01/03/24 13:40) Hives meperidine [From Demerol] Allergy (Intermediate, Verified 01/03/24 13:40) Hives Seasonal Allergies Adverse Reaction (Intermediate, Verified 01/03/24 13:40) Itchy Eyes Medication List - Last Reconciled 01/03/24 by TAMARA Huggins- aspirin 81 mg PO DAILY atorvastatin 80 mg PO DAILY budesonide 90 mcg/actuation (Pulmicort Flexhaler) 1 inh inhalation BID cholecalciferol (vitamin D3) 50 mcg PO DAILY clopidogrel 75 mg PO DAILY dicyclomine 10 mg PO BID PRN dorzolamide 2% 1 drp ophthalmic-Left Q12H famotidine 40 mg PO BEDTIME finasteride 5 mg PO DAILY 90 days furosemide 40 mg PO DAILY hydralazine 10 mg PO TID insulin degludec (Tresiba FlexTouch U-100 insulin) 17 units subcut BID latanoprost 0.005% 1 drp ophthalmic (eye) BEDTIME metoprolol succinate ER 100 mg PO DAILY nitroglycerin ER 2.5 mg PO BID pantoprazole 40 mg PO DAILY@0630 polyethylene glycol 3350 (Miralax) 17 grams PO DAILY terazosin 10 mg PO BEDTIME 90 days timolol maleate 0.5% 1 drp ophthalmic (eye) DAILY HPI HPI Comments History of Present Illness Details Mark is a very pleasant 73-year-old male patient of Dr. Miguelangel Beckham who is accompanied by his significant other at today's office visit. He has a past medical history of end-stage renal disease, acute metabolic encephalopathy, sepsis, NSTEMI, diabetes, coronary artery disease, hypertension, hyperlipidemia, anxiety, and gout. He presents to the office today for follow-up of his lower urinary tract symptoms. Of note, patient was scheduled for GreenLight laser of his prostate as well as a prostate biopsy however this has since been put on hold due to other issues he has been experiencing. Patient discusses recently coming off dialysis as he was hospitalized approximately 1 year ago for complicated NSTEMI and elevated troponins with cardiac catheterization double stent placement. Chronic kidney disease was complicated by contrast he received during catheterization which triggered worsening renal failure and was on dialysis for approximately 3 months however has since come off of dialysis. Patient presented to [facility] 06/11 febrile with a fever of 100.2 in the ER and was worked up for sepsis. Urine cultures were positive for Klebsiella. He has since completed antibiotic therapy for urinary tract infection. However, during his hospital stay bedside cystoscopy was performed by Dr. Hopkins at which time recommendations were made for GreenLight laser outpatient. Patient does have a history of an elevated PSA 06/11 7.5. However, upon redraw of PSA it appears PSA 08/[address] obtained through admission here at [facility] 06/11 noting mild diffuse bladder wall thickening. The prostate gland is significantly enlarged measuring 6.9 cm in maximum transverse dimension. Bedside cystoscopy also noted prostate polyp. In discussion with the patient and his today he reports to be doing well. He discusses his upcoming surgical procedure for cholecystectomy with Dr. Ferrell. In office urinalysis results reviewed with the patient today. 3+ proteinuria however he does follow-up with Nephrology. PVR 0 mL. Patient reports compliance with finasteride 5 mg daily as well as 10 mg of terazosin daily he reports feeling lower urinary tract symptoms are much improved with these medications. Discussed at length risks and benefits of GreenLight laser on the prostate All questions were answered. Will await prostate procedure as patient would like to have cholecystectomy first. COUNT INCLUDES THE [facility] Medical History KRYSTLE on CPAP Type 2 diabetes mellitus Ischemic cardiomyopathy On anticoagulant therapy Elevated cholesterol CAD (coronary artery disease) HTN (hypertension) Spinal stenosis NSTEMI (non-ST elevated myocardial infarction) Bladder outlet obstruction Chronic renal insufficiency Surgical History Hx of coronary artery bypass graft Hx of cardiac catheterization Hx of colonoscopy History of esophagogastroduodenoscopy (EGD) Hx of cystoscopy History of tonsillectomy Family History Mother Colon cancer Social History Household Members: Spouse Housing: House Do you presently have visiting nurse or other home services: No Alcohol intake: never Patient Tobacco Use Status: Former Tobacco user Cigarette Packs Per Day: 1 Years Smoked: 8 e-Cigarette/Vaping Use: Never Used Second Hand Smoke Exposure: No Advance Directives Date on File: 01/17/23 service: No Current occupational status: retired Cognitive needs: No Hearing needs: No Vision needs: No Review of Systems Const Reports as per HPI Eyes Reports no additional complaints ENT Reports no additional complaints Card Reports as per HPI Resp Reports no additional complaints GI Reports no additional complaints Reports as per HPI Musc Reports as per HPI Neuro Reports as per HPI Psych Reports as per HPI Endo Reports as per HPI Physical Exam Const General: cooperative, comfortable, no acute distress, well developed, alert and awake Orientation/consciousness: patient oriented x3 Limitations: ambulation with walker HEENT Head: Yes normal to inspection, Yes normocephalic and Yes atraumatic Ears: hearing grossly normal bilaterally Eyes General: appearance normal, both eyes and all related structures Neck Neck: Yes normal visual inspection and Yes trachea midline Chest Chest palpation & inspection: normal inspection of the chest Resp Effort & Inspection: normal respiratory effort and able to speak in complete sentences Cardio Rate: regular rate GI Inspection: Yes normal to inspection General: Yes no CVA tenderness Back/Spine/Pelvis Back: no CVA tenderness Skin General skin exam: no rashes or lesions noted Neuro General: patient oriented x3 Extrem General: Yes normal to inspection Psych Appearance: grossly normal and well kempt Mental Status: mental status grossly normal Speech and movement: Normal speech and movement present and Clear speech present Affect: normal affect Attitude: cooperative Thought process: Normal thought process present Thought content: Normal thought content present Insight: Fair insight present (Psych) Judgement: Fair judgement present (Psych) Office Procedures Post Void Residual Post Residual Void Post Void Residual (PVR): 0 [id number]-[id number] Void Residual by ultrasound Results AMB Urinalysis, Automated UA Leukoctes 0 Nghia/uL Last Edit by Elmer Cox on 01/03/24 08:57 UA Nitrite Negative Last Edit by Elmer Cox on 01/03/24 08:57 UA Urobilinogen 0.2 mg/dL Last Edit by Elmer Cox on 01/03/24 08:57 UA Protein 300 mg/dL Last Edit by Elmer Linettelashawn on 01/03/24 08:57 UA pH 6.0 Last Edit by Elmer Cox on 01/03/24 08:57 UA Blood 25 Osvaldo/uL Last Edit by Elmer Cox on 01/03/24 08:57 UA Specific Caliente 1.015 Last Edit by Elmer Cox on 01/03/24 08:57 UA Ketone Negative Last Edit by Elmer Cox on 01/03/24 08:57 UA Bilirubin 0 mg/dL Last Edit by Elmer Cox on 01/03/24 08:57 UA Glucose 0 mg/dL Last Edit by Elmer Cox on 01/03/24 08:57 Results Reviewed Results Reviewed: Laboratory Last Values Urine pH (Auto) 6.0 01/03/24 08:36 Specific [place] (Auto) 1.015 01/03/24 08:36 Urine Protein (Auto) 300 mg/dL 01/03/24 08:36 Glucose (UA)(Auto) 0 mg/dL 01/03/24 08:36 Urine Ketones (Auto) Negative 01/03/24 08:36 Urine Blood (Auto) 25 Osvaldo/uL 01/03/24 08:36 Urine Nitrite (Auto) Negative 01/03/24 08:36 Urine Bilirubin (Auto) 0 mg/dL 01/03/24 08:36 Urine Urobilinogen (Auto) 0.2 mg/dL 01/03/24 08:36 Leukocyte Esterase (Auto) 0 Nghia/uL 01/03/24 08:36 Assessment & Plan Assessment & Plan (1) Enlarged prostate: Code(s): N40.0 - Benign prostatic hyperplasia without lower urinary tract symptoms (2) Elevated PSA: Code(s): R97.20 - Elevated prostate specific antigen [PSA] (3) Bladder wall thickening: Code(s): N32.89 - Other specified disorders of bladder (4) Bladder outlet obstruction: Code(s): N32.0 - Bladder-neck obstruction (5) Urinary retention with incomplete bladder emptying: Code(s): R33.9 - Retention of urine, unspecified Plan In office urinalysis results reviewed with the patient today; as noted above. PVR 0 mL. Discussed at length GreenLight laser of the prostate; risks and benefits of this procedure was discussed All questions were answered. Patient currently denies any bothersome urinary issues or concerns. Most recent PSA results reviewed with the patient and his today. Patient reports to be happy with current voiding parameters. Continue finasteride and terazosin as prescribed Will obtain redraw of PSA. Will reassess in 4 months as patient will be having cholecystectomy Follow-up in 4 months with lab to be completed prior and PVR at next office visit; or sooner with any issues, concerns, and or questions. Orders: Orders Prostate Specific Antigen Today N40.0 - Benign prostatic hyperplasia without lower urinary tract symptoms, R97.20 - Elevated prostate specific antigen [PSA] AMB Urinalysis Automated Today Z13.9 - Encounter for screening, unspecified AMB Post Void Residual by ultrasound Today N32.0 - Bladder-neck obstruction Patient Instructions: The patient had an opportunity to ask questions regarding the treatment plan. All questions were answered. Physical exam, labs, and imaging were discussed and reviewed in detail. As well as risks, benefits, and discussion of treatment choices. No major barriers to understanding were identified. The patient expressed understanding and agreement with the above treatment plan. The patient was made aware they should contact our office by phone for worsening of their current condition, the appearance of new symptoms, or with any questions or concerns. Compliance is encouraged with any medications and follow up testing that is ordered. It is a privilege to be allowed the opportunity to participate in? your urological care.? Again, if you have any questions or concerns If you have any questions or concerns please do not hesitate to contact me. The office is [phone]. This note is constructed using voice recognition software. While every effort has been made to ensure accuracy pile driver operator helper errors may have been included. Yours sincerely, JERZY Huggins Coding Level of Care Code Est Pt Level 4 (59267) Diagnoses Enlarged prostate N40.0 Elevated PSA R97.20 Bladder wall thickening N32.89 Bladder outlet obstruction N32.0 Urinary retention with incomplete bladder emptying R33.9 CPT Codes Post Residual Void - PVR CPT Code: 21713-Sjnf Void Residual by ultrasound ([id number]) Time Spent (min) 30
== END 2024-01-03 09:16 | disposition home or self-care (01) ==
PROVIDERS: PCP Internal Medicine; Visit Provider Nurse Practitioner Family
DX: N40.0 Benign prostatic hyperplasia without lower urinary tract symptoms (principal); R97.20 Elevated prostate specific antigen [PSA]; N32.89 Other specified disorders of bladder; N32.0 Bladder-neck obstruction; R33.9 Retention of urine, unspecified
CPT/HCPCS: 99214

== ENCOUNTER → 2024-01-03 08:12 | Outpatient (BNVA) | payer OTHER, SELFPAY | PROVIDERS: PCP Internal Medicine; Visit Provider Nurse Practitioner Family | DX: N40.1 Benign prostatic hyperplasia with lower urinary tract symptoms (principal); R33.8 Other retention of urine; R97.20 Elevated prostate specific antigen [PSA]; N32.89 Other specified disorders of bladder; N32.0 Bladder-neck obstruction; Z79.899 Other long term (current) drug therapy | CPT/HCPCS: 51798; 81003 ==

== ENCOUNTER 2024-01-04 08:35 | Outpatient (AMB) | payer OTHER, SELFPAY ==
--- NOTE | 2024-01-04 08:51 | MHC.OFFVIS ---
Intake Vital Signs 01/04/24 08:52 Height 5 ft 7 in Weight 184 lb BMI 28.8 BP 140/70 H Blood Pressure Location Lt brachial Position Sitting Pulse 58 Pulse Source Pulse Oximeter Pulse Oximetry (%) 96 Oxygen Delivery Method Room Air Intake Visit Reasons: shortness of breath: 3 month f/u Front Office Associate Required: No Still Pump Operator: Still Pump Operator offered & declined Accompanied by: Self / Same As Patient Allergies liraglutide [From Victoza] Allergy (Intermediate, Verified 01/04/24 08:57) Hives meperidine [From Demerol] Allergy (Intermediate, Verified 01/04/24 08:57) Hives Seasonal Allergies Adverse Reaction (Intermediate, Verified 01/04/24 08:57) Itchy Eyes Medication List - Last Reconciled 01/04/24 by Simi Thayer LPN aspirin 81 mg PO DAILY atorvastatin 80 mg PO DAILY budesonide 90 mcg/actuation (Pulmicort Flexhaler) 1 inh inhalation BID cholecalciferol (vitamin D3) 50 mcg PO DAILY clopidogrel 75 mg PO DAILY dicyclomine 10 mg PO BID PRN dorzolamide 2% 1 drp ophthalmic-Left Q12H famotidine 40 mg PO BEDTIME finasteride 5 mg PO DAILY 90 days furosemide 40 mg PO DAILY hydralazine 10 mg PO TID insulin degludec (Tresiba FlexTouch U-100 insulin) 17 units subcut BID latanoprost 0.005% 1 drp ophthalmic (eye) BEDTIME metoprolol succinate ER 100 mg PO DAILY nitroglycerin ER 2.5 mg PO BID pantoprazole 40 mg PO DAILY@0630 polyethylene glycol 3350 (Miralax) 17 grams PO DAILY terazosin 10 mg PO BEDTIME 90 days timolol maleate 0.5% 1 drp ophthalmic (eye) DAILY HPI shortness of breath: 3 month f/u HPI Details Mark is a pleasant 73 year old male, former smoker with less than 10 pack year history, with significant underlying cardiac history with multivessel bypass, CAD s/p stent, NSTEMI, HF EF 45-50%, asthma, environmental allergies, GERD and RKYSTLE on CPAP. At the last visit, he was started on pulmicort for dyspnea with minimal exertion and intermittent dry cough. He reports good control of symptoms with use. Unfortunately, he develop symptoms consistent with sinusitis as well as chest congestion and persistent dry cough secondary to post nasal drip. He denies any wheezing or chest tigthness. He denies any fevers, chills or sick contacts. He started using flonase but reports no change in symptoms. Today he presents to review his chest CT and response to pulmicort. [facility] Medical History KRYSTLE on CPAP Type 2 diabetes mellitus Ischemic cardiomyopathy On anticoagulant therapy Elevated cholesterol CAD (coronary artery disease) HTN (hypertension) Spinal stenosis NSTEMI (non-ST elevated myocardial infarction) Bladder outlet obstruction Chronic renal insufficiency Surgical History Hx of coronary artery bypass graft Hx of cardiac catheterization Hx of colonoscopy History of esophagogastroduodenoscopy (EGD) Hx of cystoscopy History of tonsillectomy Family History Mother Colon cancer Social History (Updated 01/04/24 @ 08:59 by Simi Thayer LPN) Household Members: Spouse Housing: House Do you presently have visiting nurse or other home services: No Alcohol intake: never Patient Tobacco Use Status: Former Tobacco user Cigarette Packs Per Day: 1 Years Smoked: 8 e-Cigarette/Vaping Use: Never Used Second Hand Smoke Exposure: No Advance Directives Date on File: 01/17/23 service: No Current occupational status: retired Cognitive needs: No Hearing needs: No Vision needs: No Review of Systems Const Denies chills, Denies excessive sweating, Denies fever(s), Denies headache(s) and Denies night sweats Eyes Denies dry eyes, Denies irritation and Denies itchy eyes ENT Reports Normal hearing present, Denies headache(s), Denies nasal discharge, Reports post nasal drip, Reports sinus pain and Reports sinus pressure Card Denies chest pain, Denies chest pain at rest, Denies chest pain with activity, Denies claudication, Reports dyspnea on exertion and Denies paroxysmal nocturnal dyspnea Resp Denies change in phlegm color, Reports chest congestion, Reports cough, Denies excessive phlegm production, Denies pain with cough, Reports dyspnea on exertion, Denies stridor and Denies wheezing Musc Denies myalgias Neuro Reports Normal hearing present and Denies headache(s) Endo Denies excessive sweating Jacob/Lymph Denies lymphadenopathy Aller/Immun Denies itchy eyes, Denies seasonal rhinorrhea and Denies wheezing Physical Exam Vital Signs: Last Vital Signs Pulse 58 01/04/24 08:52 BP 140/70 H 01/04/24 08:52 Pulse Ox 96 01/04/24 08:52 Oxygen Delivery Method Room Air 01/04/24 08:52 BMI result Body Mass Index 28.8 Const General: cooperative, healthy appearing, comfortable, no acute distress, well developed and alert Nutritional Appearance: obese Orientation/consciousness: patient oriented x3 Limitations: ambulation with walker HEENT Head: Yes normal to inspection, Yes normocephalic and Yes atraumatic Ears: hearing grossly normal bilaterally and external ears normal Eyes General: appearance normal, both eyes and all related structures Eyelids: Yes eyelids normal Sclerae: sclerae normal EOM: EOMs intact bilaterally Neck Neck: Yes normal visual inspection and Yes no lymphadenopathy Lymphatic: no lymphadenopathy noted Chest Chest palpation & inspection: normal inspection of the chest Resp Effort & Inspection: normal respiratory effort, able to speak in complete sentences, no audible wheezes, no stridor, not tachypneic, no tripod positioning and no use of accessory muscles Auscultation: clear to auscultation bilaterally Cardio Jugular venous distension: no JVD Rate: regular rate Rhythm: regular rhythm Skin Other: warm, dry General skin exam: no rashes or lesions noted Neuro General: patient oriented x3 Cranial nerves: Yes Normal hearing present Cognition (Neuro): normal cognition Extrem Other: 2+ pitting edema BLE General: Yes normal to inspection and Yes capillary refill normal Psych Appearance: grossly normal and well kempt Speech and movement: Normal speech and movement present and Clear speech present Affect: normal affect Attitude: cooperative Thought process: Normal thought process present Thought content: Normal thought content present Insight: Good insight present (Psych) Judgement: Good judgement present (Psych) Results Reviewed Results Reviewed: [address] [address] [address] Scan Report Signed Patient: Mark Conte MR#: [id number] : 1950 Acct:[id number] Age/Sex: 73 / M ADM Date: 11/03/23 Loc: HO.CT Attending Dr: Vania Lopes LASTING MACHINE OPERATOR BED Ordering Physician: Vania Lopes NP Date of Service: 11/03/23 Procedure(s): CT chest wo IV con Accession Number(s): [id number] cc: Miguelangel Beckham MD; Vania Lopes NP~ EXAMINATION: CT CHEST WITHOUT CONTRAST CLINICAL INFORMATION: Solitary pulmonary nodule. COMPARISON: CT abdomen/pelvis 06/12/2023 revealed: A 3 mm pulmonary nodule right middle lobe (image [id number], series 4) , chest radiograph 06/11/2023. TECHNIQUE: Multidetector volumetric CT imaging of the chest was done. Axial MIP volume rendering provided. Sagittal and coronal reformatted images were obtained. This CT examination was performed using dose optimization techniques as appropriate, variously including the following: *Automated exposure control *Adjustment of mA and/or kV according to patient size (this includes techniques or standardized protocols for targeted exams where dose is matched to indication/reason for exam; i.e. extremities or head) *Use of iterative reconstruction technique DLP: 210 mGy-cm FINDINGS: LUNGS: The previously seen 3 mm pulmonary nodule in the right middle lobe is unchanged and according to Fleischner Society criteria, no follow-up was or is indicated. Some other smaller perifissural nodules are present on the right, also unchanged. The lungs are clear with no evidence of inflammation or new flat worrisome masses. MEDIASTINUM: Heart size upper limits of normal. Multiple small mediastinal lymph nodes are present largest measuring 1.5 cm in the precarinal region. Patient status post median sternotomy. CORONARY ARTERY CALCIFICATION: Extensive triple-vessel coronary calcium is visualized on this study. PLEURA: There is a new small left pleural effusion compared to the prior study. There is a new trace right pleural effusion present. There is no pleural mass or thickening. AXILLA: No lymphadenopathy. UPPER ABDOMEN: Unremarkable. OSSEOUS STRUCTURES: Mild degenerative changes are present in the spine. No bony destructive lesions. CT/CT chest wo IV con IMPRESSION: 1. Stable 3 mm right middle lobe pulmonary nodule. 2. New small left and trace right pleural effusions. 3. Other incidental findings as described above. According to the UPDATED 2017 Fleischner Society recommendations, the advised follow-up imaging for solid nodules <6 mm in the middle/lower lobes is no routine follow up. Dictated By: Manjeet Muller MD Signed By: <Electronically signed by Manjeet Muller MD in OV> 11/07/23 1533 DD/ 1434 TD/TT: Leaf Stripper: SALLIE Assessment & Plan Assessment & Plan (1) Dyspnea: Code(s): R06.00 - Dyspnea, unspecified (2) Asthma: Code(s): J45.909 - Unspecified asthma, uncomplicated (3) Environmental allergies: Code(s): Z91.09 - Other allergy status, other than to drugs and biological substances (4) KRYSTLE on CPAP: Code(s): G47.33 - Obstructive sleep apnea (adult) (pediatric) (5) Ischemic cardiomyopathy: Comment: follows w/PV Cardiology Code(s): I25.5 - Ischemic cardiomyopathy (6) Pulmonary nodule: Code(s): R91.1 - Solitary pulmonary nodule (7) Sinusitis: Code(s): J32.9 - Chronic sinusitis, unspecified Plan Reviewed Chest CT which revealed unchanged 3 mm nodule of RML. Will repeat chest CT in one year to assess for stability of nodule. At the last visit, patient was started on pulmicort with good control of symptoms, advised to continue. Will add levalbuterol PRN, and can not tolerate albuterol with significant cardiac history. Today patient reports symptoms suggestive of sinusitis. Will send a watch and wait prescription of amoxicilin if symptoms worsen. Decreased dose sent due to CKD. All questions were answered and patient is in agreement of plan. Will follow up in 6 months or sooner if needed. Orders: Orders CT chest wo IV con 10 Months R91.1 - Solitary pulmonary nodule Medications: New levalbuterol tartrate 45 mcg/actuation 1 puff inhalation Q4-6H PRN 15 grams 4RF shortness of breath amoxicillin watch and wait 500 mg PO BID 10 tabs 0RF Coding Level of Care Code Est Pt Level 4 (98903) Diagnoses Dyspnea R06.00 Asthma J45.909 Environmental allergies Z91.09 KRYSTLE on CPAP G47.33 Ischemic cardiomyopathy I25.5 Pulmonary nodule R91.1 Sinusitis J32.9
[2024-01-04 08:52] VITALS: BP 140/70; PULSE 58; O2SAT 96; BMI 28.8
== END 2024-01-04 09:18 | disposition home or self-care (01) ==
PROVIDERS: PCP Internal Medicine; Visit Provider Nurse Practitioner Family
DX: R06.00 Dyspnea, unspecified (principal); J45.909 Unspecified asthma, uncomplicated; Z91.09 Other allergy status, other than to drugs and biological substances; G47.33 Obstructive sleep apnea (adult) (pediatric); I25.5 Ischemic cardiomyopathy; R91.1 Solitary pulmonary nodule; J32.9 Chronic sinusitis, unspecified
CPT/HCPCS: 99214

== ENCOUNTER → 2024-01-04 08:35 | Outpatient (BNVA) | payer OTHER, SELFPAY | PROVIDERS: PCP Internal Medicine; Visit Provider Nurse Practitioner Family ==

== ENCOUNTER 2024-01-26 | Outpatient (REF) | payer OTHER, SELFPAY ==
--- NOTE | 2024-01-26 | ECG_ITS ---
Test Reason : preop Blood Pressure : / mmHG Vent. Rate : 054 BPM Atrial Rate : 054 BPM P-R Int : 192 ms QRS Dur : 098 ms QT Int : 482 ms P-R-T Axes : 036 -42 160 degrees QTc Int : 457 ms Sinus bradycardia Left axis deviation Minimal voltage criteria for LVH, may be normal variant ( [place] product ) Anterior infarct (cited on or before 11-JUN-2023) ST & T wave abnormality, consider lateral ischemia Abnormal ECG When compared with ECG of 11-JUN-2023 18:18, Premature ventricular complexes are no longer Present T wave inversion more evident in Lateral leads Referred By: Nikki Tee Electronically Signed By:Tate Manzano
[2024-01-26 12:59] VITALS: BP 180/79; PULSE 54; RESP 16; O2SAT 98; BMI 29.8
--- NOTE | 2024-01-26 13:26 | HO.ANESPROP2 ---
HPI - Anesthesia Eval Consult details Narrative: 73yo M for Cholecystectomy Laparoscopic possible open Recent sinus infection. Tx'd with abx and improving. Minimal cough with clear phlegm No CP/SOB with walking from lobby with walker ~1+ ankle edema at baseline LUE fistula, no dialysis since 06/2023 NO IV/BP LUE DM: Fasting ~ 120 GERD: ppi with minimal effect KRYSTLE: Mouth guard Follows [facility]. Seeing 01/30 Pt reports no CV symptoms with activity. Trace LE edema. BP up d/t running out of amlodipine. 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 Has f/u appt 2023 NEED: Cardiac clearance, Renal PMFSH Active Problems Active Problems: All Active Problems Sinusitis (Acute) Bladder wall thickening (Acute) Biliary dyskinesia (Acute) Pulmonary nodule (Acute) Environmental allergies (Acute) Asthma (Acute) Dyspnea (Acute) Elevated PSA (Acute) Enlarged prostate (Acute) Bladder outlet obstruction (Acute) Urinary retention with incomplete bladder emptying (Acute) ESRD (end stage renal disease) on dialysis (Acute) Acute metabolic encephalopathy (Acute) UTI (urinary tract infection) (Acute) Sepsis (Acute) NSTEMI (non-ST elevated myocardial infarction) (Acute) Elevated troponin (Acute) Hypokalemia (Acute) CKD (chronic kidney disease) (Acute) Abnormal weight loss (Acute) Abdominal pain, acute, epigastric (Acute) Left leg weakness (Acute) Unsteady gait (Acute) Spinal stenosis (Acute) Abdominal discomfort (Acute) Chronic renal failure (Acute) Diabetes (Acute) Coronary artery disease (Acute) Post-nasal drip (Acute) Hypertension (Acute) Hyperlipidemia (Acute) Anxiety (Acute) Gout (Acute) Laboratory exam ordered as part of routine general medical examination (Acute) Ischemic cardiomyopathy (Acute) KRYSTLE on CPAP (Acute) Past Medical History Medical History (Updated 01/26/24 @ 13:37 by Analy Lee RN) Uses corieer walker Peripheral neuropathy History of renal dialysis Sinus infection A-V fistula (~2021) Glaucoma Enlarged prostate Chronic cough Arthritis Anxiety Anemia CHF (congestive heart failure) KRYSTLE on CPAP Type 2 diabetes mellitus Ischemic cardiomyopathy On anticoagulant therapy Elevated cholesterol CAD (coronary artery disease) HTN (hypertension) Spinal stenosis NSTEMI (non-ST elevated myocardial infarction) Bladder outlet obstruction Chronic renal insufficiency Family History Family History Mother Colon cancer Family history of problems with anesthesia: No Surgical History Surgical History (Updated 01/26/24 @ 12:59 by Analy Lee RN) Hx of coronary artery bypass graft (~2018) Hx of cardiac catheterization Hx of colonoscopy History of esophagogastroduodenoscopy (EGD) Hx of cystoscopy History of tonsillectomy History of Problems with Anesthesia: No Social History Social History (Updated 01/04/24 @ 08:59 by Simi Thayer LPN) Household Members: Spouse Housing: House Are you a primary manager care management to a significant other at home: No Do you presently have visiting nurse or other home services: No Alcohol intake: never Patient Tobacco Use Status: Former Tobacco user Quit Date: Tobacco use type: Cigarette Cigarette Packs Per Day: 1 Years Smoked: 8 e-Cigarette/Vaping Use: Never Used Second Hand Smoke Exposure: No Use of substances other than those prescribed or required for medical reasons: No Have you been hit, kicked, punched, or otherwise hurt by someone within the past year? If so, by whom?: No Are you DNR?: No Advance Directives: Yes Advance Directives Information Provided: No Advance Directives on File: Yes Advance Directives Date on File: 01/17/23 Recently lost weight without trying: Yes How much weight loss: 34pounds or more Eating poorly because of decreased appetite: Yes Nutrition screen score: 7 service: No Current occupational status: retired Cognitive needs: No Hearing needs: No Vision needs: No Meds Allergies Allergy/AdvReac Type Severity Reaction Status Date / Time Iodinated Contrast Media Allergy Severe Acute Verified 01/26/24 12:50 [IV Contrast Dye] Kidney Failure liraglutide [From Victoza] Allergy Intermediate Hives Verified 01/26/24 12:50 meperidine [From Demerol] Allergy Intermediate Hives Verified 01/26/24 12:50 Seasonal Allergies AdvReac Intermediate Itchy Eyes Verified 01/26/24 12:50 Home Medications ?Medication ?Instructions ?Recorded ?Confirmed ?Last Taken ?Type aspirin 81 mg tablet,delayed 81 mg PO DAILY 02/10/22 01/26/24 06/11/23 History release atorvastatin 80 mg tablet 80 mg PO DAILY 02/10/22 01/26/24 06/11/23 History cholecalciferol (vitamin D3) 50 50 mcg PO DAILY 02/10/22 01/26/24 06/11/23 History mcg (2,000 unit) capsule insulin degludec 100 unit/mL (3 17 unit subcut BID 02/10/22 01/26/24 06/11/23 History mL) subcutaneous pen (Tresiba FlexTouch U-100 insulin) furosemide 40 mg tablet 40 mg PO DAILY 01/17/23 01/26/24 06/11/23 History latanoprost 0.005 % eye drops 1 drp ophthalmic (eye) BEDTIME 01/17/23 01/26/24 06/11/23 History timolol maleate 0.5 % eye drops 1 drp ophthalmic (eye) DAILY 01/17/23 01/26/24 06/11/23 History clopidogrel 75 mg tablet 75 mg PO DAILY 02/22/23 01/26/24 06/11/23 History metoprolol succinate 100 mg 100 mg PO DAILY 02/22/23 01/26/24 06/11/23 History tablet,extended release 24 hr dorzolamide 2 % eye drops 1 drp ophthalmic-Left Q12H 06/12/23 01/26/24 06/11/23 History pantoprazole 40 mg tablet,delayed 40 mg PO DAILY@0630 06/12/23 01/26/24 06/11/23 History release nitroglycerin 2.5 mg 2.5 mg PO BID PRN Chest Pain 08/03/23 01/04/24 Unknown History capsule,extended release hydralazine 10 mg tablet 10 mg PO TID 01/03/24 01/26/24 Unknown History Exam Height,Weight and Vital Signs: Height 5 ft 7 in Weight 86.183 kg Last Vital Signs Pulse 54 01/26/24 12:59 Resp 16 01/26/24 12:59 BP 180/79 H 01/26/24 12:59 Pulse Ox 98 01/26/24 12:59 O2 Del Method Room Air 01/26/24 12:59 Airway Partial: Upper Loose/Missing/Broken Teeth: Yes (molars crowned) Heart: Momo, regular Lungs: CTAB Assessment and Plan Assessment Anesthesia Assessment: Anesthesia Plan Discussed and PAT Visit Final Anesthetic Review Family History of Problems with Anesthesia: No History of Problems with Anesthesia: No
== END 2024-01-26 00:01 | disposition home or self-care (01) ==
LOC: HO.PAT
PROVIDERS: PCP Internal Medicine; Visit Provider Surgery
DX: Z01.818 Encounter for other preprocedural examination (principal)
CPT/HCPCS: 93005

== ENCOUNTER → 2024-01-26 13:55 | Outpatient (BNV) | payer OTHER, SELFPAY | PROVIDERS: PCP Internal Medicine; Visit Provider Internal Medicine Cardiovascular Disease | DX: R94.31 Abnormal electrocardiogram [ECG] [EKG] (principal) | CPT/HCPCS: 93010 ==

== ENCOUNTER 2024-03-07 10:05 | Outpatient (AMB) | payer OTHER, SELFPAY ==
--- NOTE | 2024-03-07 10:18 | MHC.OFFVIS ---
Vital Signs 03/07/24 10:27 Height 5 ft 7 in Weight 185 lb 3.013 oz BMI 29.0 BP 192/82 H Blood Pressure Location Rt brachial Position Sitting Pulse 56 Pulse Source Pulse Oximeter Pulse Oximetry (%) 97 Oxygen Delivery Method Room Air Intake Visit Reasons: 3 mnth follow up Intake Note: Mark presents in office today for a scheduled 3 mos FUV. CC: Pt reports that they were scheduled to have their cholecystecomy and they had the procedure cancelled within 48 hours of when they were supposed to be admitted. The pt states that the anesthesiologist had concerns regarding the pt's cardiac hx and did not feel comfortable with the procedure as scheduled. Pt states that the surgical team recommended the pt to have the procedure at [facility] as a result. Pt is scheduled for a new consult for 03/15. Pt reports that the medications that were started for him at his last visit have been working very well and he has had no further complications. Pt is interested in inquiring regarding the possibility of a Cesilia Lopez Tear . Pt reports that he recently learned that a friend of his had similar sx to what he has been experiencing for approximately the last year. Allergies Iodinated Contrast Media [IV Contrast Dye] Allergy (Severe, Verified 03/07/24 10:26) Acute Kidney Failure liraglutide [From Victoza] Allergy (Intermediate, Verified 03/07/24 10:26) Hives meperidine [From Demerol] Allergy (Intermediate, Verified 03/07/24 10:26) Hives Seasonal Allergies Adverse Reaction (Intermediate, Verified 03/07/24 10:26) Itchy Eyes HPI HPI 3 mnth follow up: Details: LAST VISIT Biliary dyskinesia Abdominal pain Plan Referral to surgery for possible cholecystectomy due to biliary dyskinesia. Patient will go for MRCP, pain also in right upper quadrant. Patient can start taking dicyclomine once or twice a day. Patient was educated about good bowel regimen as he might get constipated. Continue taking MiraLax and Colace. I will see patient in 3 months, sooner on as needed basis. Both patient and his are agreeable to plan of care and verbalizes understanding of instructions. They were given the opportunity to ask questions and all questions answered. ? Thank you for allowing me to participate in his care Orders Orders MR MRCP 12/07/23 K82.8, R10.9 Referrals General Surgery Referral K82.8 Medications New dicyclomine 10 mg PO BID PRN 90 caps 2RF abdominal discomfort K58.9 TODAY'S VISIT Patient is here today for follow-up and to discuss MRI results. No acute processes found. Few small cysts seen on pancreas recommendation to repeat pancreatic MRI in 1-2 years. Patient reports having epigastric pain and burning not always postprandially but many times at night time. He reports acid reflux. Abdominal pain and cramping improved with dicyclomine. Currently patient is on pantoprazole and famotidine. Patient reports occasional nausea without vomiting. Patient denies any melena, hematochezia, unintentional weight loss or ribbon like stools. Patient was supposed to have cholecystectomy for biliary dyskinesia, however patient has complicated cardiac history and anesthesia refer him to [facility]. Patient is worried that he might have cesilia-lopez tear. Patient was speaking to his friend about his symptoms and his friend told him that he heard that one of the actresses with similar symptoms was just diagnosed with Cesilia-Lopez tear. Patient denies having shortness of breath that is new, no vomiting. Denies melena [facility] Medical History Uses roller walker Peripheral neuropathy History of renal dialysis Sinus infection A-V fistula (~2021) Glaucoma Enlarged prostate Chronic cough Arthritis Anxiety Anemia CHF (congestive heart failure) KRYSTLE on CPAP Type 2 diabetes mellitus Ischemic cardiomyopathy On anticoagulant therapy Elevated cholesterol CAD (coronary artery disease) HTN (hypertension) Spinal stenosis NSTEMI (non-ST elevated myocardial infarction) Bladder outlet obstruction Chronic renal insufficiency Surgical History Hx of coronary artery bypass graft (~2017) Hx of cardiac catheterization Hx of colonoscopy History of esophagogastroduodenoscopy (EGD) Hx of cystoscopy History of tonsillectomy Family History Mother Colon cancer Social History Household Members: Spouse Housing: House Are you a primary resident care supervisor to a significant other at home: No Do you presently have visiting nurse or other home services: No Alcohol intake: never Patient Tobacco Use Status: Former Tobacco user Tobacco use type: Cigarette Cigarette Packs Per Day: 1 Years Smoked: 8 e-Cigarette/Vaping Use: Never Used Second Hand Smoke Exposure: No Advance Directives Date on File: 01/17/23 service: No Current occupational status: retired Cognitive needs: No Hearing needs: No Vision needs: No Review of Systems Const Denies weight gain and Denies weight loss ENT Reports no additional complaints, Denies dysphagia and Denies odynophagia Card Reports no additional complaints Resp Reports no additional complaints GI Denies abdominal pain, Denies belching, Denies melena, Reports bloating, Denies change in bowel habits, Denies dysphagia, Denies excessive flatus, Reports dyspepsia, Reports heartburn, Denies diarrhea, Denies loose stools, Denies nausea, Denies odynophagia and Denies vomiting Reports no additional complaints Musc Reports no additional complaints Neuro Reports no additional complaints Psych Reports no additional complaints Endo Reports no additional complaints Physical Exam Vital Signs: Last Vital Signs Pulse 56 03/07/24 10:27 BP 192/82 H 03/07/24 10:27 Pulse Ox 97 03/07/24 10:27 Oxygen Delivery Method Room Air 03/07/24 10:27 BMI result Body Mass Index 29.0 Const Other: Patient ambulating using wheeled walker General: healthy appearing and no acute distress Nutritional Appearance: obese Orientation/consciousness: patient oriented x3 Resp Effort & Inspection: normal respiratory effort, able to speak in complete sentences, no tracheal deviation and symmetric chest movement Auscultation: clear to auscultation bilaterally Cardio Rate: regular rate GI Inspection: Yes normal to inspection, No distended and Yes obesity Palpation (GI): Soft to palpation, not firm, nontender and No hepatosplenomegaly present Auscultation: normal bowel sounds General: Yes no CVA tenderness Back/Spine/Pelvis Back: no CVA tenderness Skin General skin exam: elasticity normal, turgor normal and dry skin Neuro General: patient oriented x3 Psych Appearance: grossly normal Mental Status: mental status grossly normal Results Reviewed Results Reviewed: MRCP 12/22/2023 IMPRESSION: * No acute imaging abnormalities within the abdomen. * Gallbladder and biliary tree have a normal appearance. No evidence of cholelithiasis, cholecystitis or biliary tract obstruction. * Trace right pleural effusion and small left pleural effusion are similar in size compared to 11/03/2023. * Small cystic foci are detected within the body of the pancreas. If deemed clinically appropriate, obtain pancreatic MRI follow up in the next 12-24 months. Assessment & Plan Assessment & Plan (1) Abdominal discomfort: Code(s): R10.9 - Unspecified abdominal pain Category: Medical (2) RUQ abdominal pain: Code(s): R10.11 - Right upper quadrant pain (3) GERD (gastroesophageal reflux disease): Code(s): K21.9 - Gastro-esophageal reflux disease without esophagitis Qualifiers: Esophagitis presence: esophagitis presence not specified Qualified Code(s): K21.9 - Gastro-esophageal reflux disease without esophagitis (4) Constipation: Code(s): K59.00 - Constipation, unspecified Qualifiers: Constipation type: slow transit constipation Qualified Code(s): K59.01 - Slow transit constipation Plan Will send patient to check CBC sees. Patient will start taking sucralfate at night time and Nexium in the morning. Will stop famotidine and pantoprazole. Discussed with patient the importance of avoiding dietary triggers and late night snacking. Staying upright for minimum 3 hours after meals discussed with patient. Patient will be scheduled for upper endoscopy. Will call patient's shade cutter on clearance and management of Plavix. I will see patient after the procedure, sooner on as needed basis. He is agreeable to this plan and verbalizes understanding of instructions. He was given the opportunity to ask questions and all questions answered. Thank you for allowing me to participate in his care Orders: Orders Complete Blood Count no Diff Today K21.9 - Gastro-esophageal reflux disease without esophagitis Medications: New sucralfate 1 g PO BEDTIME 30 tabs 4RF R19.7 - Diarrhea, unspecified esomeprazole magnesium (Nexium) 40 mg PO DAILY 30 caps 5RF K21.9 - Gastro-esophageal reflux disease without esophagitis Discontinued famotidine Discontinued Reason: Doctor's Order 40 mg PO BEDTIME 90 tabs 1RF K21.9 - Gastro-esophageal reflux disease without esophagitis Coding Level of Care Code Est Pt Level 4 (75405) Diagnoses Abdominal discomfort R10.9 RUQ abdominal pain R10.11 Gastroesophageal reflux disease, unspecified whether esophagitis present K21.9 Esophagitis presence: esophagitis presence not specified Slow transit constipation K59.01 Constipation type: slow transit constipation Time Spent (min) 35 Comment 20 minutes spent with patient and additional 15 minutes spent reviewing his records
[2024-03-07 10:27] VITALS: BP 192/82; PULSE 56; O2SAT 97; BMI 29.0
== END 2024-03-07 11:03 | disposition home or self-care (01) ==
PROVIDERS: PCP Internal Medicine; Visit Provider Nurse Practitioner Family
DX: R10.9 Unspecified abdominal pain (principal); R10.11 Right upper quadrant pain; K21.9 Gastro-esophageal reflux disease without esophagitis; K59.01 Slow transit constipation
CPT/HCPCS: 99214

== ENCOUNTER → 2024-03-07 10:05 | Outpatient (BNVA) | payer OTHER, SELFPAY | PROVIDERS: PCP Internal Medicine; Visit Provider Nurse Practitioner Family ==

== ENCOUNTER 2024-04-03 09:12 | Outpatient (REF) | payer OTHER, SELFPAY ==
--- NOTE | ~2024-04-03 | FL_ITS ---
EXAMINATION: XR FLUOROSCOPY UPPER GI WITH AIR CLINICAL INFORMATION: Reflux, epigastric pain COMPARISON: None correlation with gastric emptying study 07/07/2023. TECHNIQUE: Fluoroscopic air contrast upper GI examination was performed utilizing standard techniques with thin and thick barium and effervescent granules. Numerous spot images were obtained. FINDINGS: Lateral cine images of the oropharynx and hypopharynx demonstrate normal swallow mechanism with normal epiglottic inversion and soft palate elevation. No tracheal penetration, glottic or subglottic aspiration identified. No nasopharyngeal reflux present. Hypopharyngeal structures appear normal without evidence of mass or diverticulum. Mild cricopharyngeal achalasia is present. Dual and single contrast images of the esophagus demonstrate a normal caliber. The mid and distal esophageal mucosa has a granular appearance. No evidence of stricture, mass, or ulcerations identified. Esophageal peristalsis is moderately disorganized area A small type I hiatal hernia is present. Mild gastroesophageal reflux is seen in the distal esophagus. Dual contrast and single contrast images of the stomach demonstrated a normal contour. Evaluation of the gastric mucosa is limited due to lack of distention of the stomach from poor tolerance of the effervescent granules. The gastric rugal folds have a mildly thickened appearance, which suggest gastritis, however, this may be also due to underdistention of the stomach. No masses or ulcerations are seen. At the end of the examination, only a faint amount contrast is seen in the duodenal sweep, with the majority of contrast still present in the gastric antrum. FLUOROSCOPY TIME: 6 minutes 24 seconds Number of Spot Images: 13 Number of Cine: 14 DOSE AREA PRODUCT: [id number] uGy-m2 (microgray-meter squared) FL/FL upper GI series IMPRESSION: 1. Mild cricopharyngeal achalasia. 2. Granular appearance of the mid and distal esophageal mucosa, which suggests esophagitis. 3. Moderately disorganized esophageal peristalsis. 4. Small type I hiatal hernia with mild gastroesophageal reflux seen in the distal esophagus. 5. Limited evaluation of the gastric mucosa due to lack of distention of the stomach from poor tolerance of the effervescent granules. The gastric rugal folds have a mildly thickened appearance, which suggest gastritis, however, this may be also due to underdistention of the stomach. 5. Majority of the contrast remains in the gastric antrum at the end of the examination, with only a faint amount of barium seen in the duodenal sweep. This likely represents gastroparesis, as seen on recent gastric emptying study. This procedure was performed by Ger Newberry PA-C, and supervised by Dr. Blake
== END 2024-04-03 09:13 | disposition home or self-care (01) ==
LOC: HO.XRAY 09:12
PROVIDERS: PCP Internal Medicine; Visit Provider Nurse Practitioner Family
DX: K21.9 Gastro-esophageal reflux disease without esophagitis (principal)
CPT/HCPCS: 74240

== ENCOUNTER → 2024-04-03 09:14 | Outpatient (BNV) | payer OTHER, SELFPAY | PROVIDERS: PCP Internal Medicine; Visit Provider Physician Assistant Surgical | DX: K21.9 Gastro-esophageal reflux disease without esophagitis (principal); R10.13 Epigastric pain | CPT/HCPCS: 74246 ==

== ENCOUNTER 2024-07-19 12:52 | Outpatient (AMB) | payer OTHER, SELFPAY ==
--- NOTE | 2024-07-19 12:54 | A.OFFVIS_ITS ---
Vital Signs 07/19/24 12:59 Height 5 ft 7 in Weight 189 lb 9.561 oz BMI 29.7 BP 172/90 H Blood Pressure Location Rt brachial Position Sitting Pulse 75 Pulse Source Pulse Oximeter Intake Visit Reasons: T2DM/LVM Intake Note: NEW Patient presents today to establish treatment for Type 2 Diabetes Mellitus: Last Diabetic eye exam was on: 06/2024, PATIENT HAD EYE SURGERY Last Podiatry exam was on: Does not see a Critical Care Transport Nurse Most recent HbA1c: 7.0%, 07/19/2024 Random Glucose- 127 mg/dL, Today Client Associate Required: No Accompanied by: Other Relationship Allergies Iodinated Contrast Media [IV Contrast Dye] Allergy (Severe, Verified 03/07/24 10:26) Acute Kidney Failure liraglutide [From Victoza] Allergy (Intermediate, Verified 03/07/24 10:26) Hives meperidine [From Demerol] Allergy (Intermediate, Verified 03/07/24 10:26) Hives Seasonal Allergies Adverse Reaction (Intermediate, Verified 03/07/24 10:26) Itchy Eyes HPI Comments Details: Mark is a very pleasant 74-year-old male presenting for diabetes consultation Med history: end-stage renal disease now off dialysis, sepsis, NSTEMI, coronary artery disease s/p CABG, PCI, hypertension, hyperlipidemia, anxiety, and gout. Current medications: Tresiba 17 twice daily Was on metformin prior to development of significant kidney disease Checking glucose with traditional glucometer. Had one low in 40s in last 3 months Coughed with lisinopril Is on statin therapy-atorvastatin 80mg Ophtho: Follows with [facility]: Follows with [facility]. Wound debrided today. Started on doxycycline. Denies fevers. Sees Yasmine Melgar for GI. Right after eating feels upper abdominal pain. Rarely occurs without eating. Scheduled for another upper endoscopy. Had gastric emptying, barium swallow, previous upper endoscopy. Saw vascular in 2022 and noted to have single vessel disease, though at that time prior to extensive GI work up it was thought that his symptoms were likely more due to gastritis. He is tolerating very little in the way of food. Eats mostly soup ROS see HPI PHYSICAL EXAM: GENERAL: Alert and oriented x 3. NAD EYES: EOMI. Anicteric. HENT: Moist mucous membranes. No scleral icterus. No cervical lymphadenopathy. LUNGS: Clear to auscultation bilaterally. CARDIOVASCULAR: Regular rate and rhythm. No murmur. No JVD. ABDOMEN: Soft, non-tender +bs EXTREMITIES: No edema. Non-tender. SKIN: Warm, +PT pulses NEUROLOGIC: No focal neurological deficits. CN II-XII grossly intact PSYCHIATRIC: Cooperative. Appropriate mood and affect [facility] Medical History Uses roller walker Peripheral neuropathy History of renal dialysis Sinus infection A-V fistula (~2021) Glaucoma Enlarged prostate Chronic cough Arthritis Anxiety Anemia CHF (congestive heart failure) KRYSTLE on CPAP Type 2 diabetes mellitus Ischemic cardiomyopathy On anticoagulant therapy Elevated cholesterol CAD (coronary artery disease) HTN (hypertension) Spinal stenosis NSTEMI (non-ST elevated myocardial infarction) Bladder outlet obstruction Chronic renal insufficiency Surgical History Hx of coronary artery bypass graft (~2017) Hx of cardiac catheterization Hx of colonoscopy History of esophagogastroduodenoscopy (EGD) Hx of cystoscopy History of tonsillectomy Family History Mother Colon cancer Social History Household Members: Spouse Housing: House Are you a primary veterinarian laboratory animal care to a significant other at home: No Do you presently have visiting nurse or other home services: No Alcohol intake: never Patient Tobacco Use Status: Former Tobacco user Tobacco use type: Cigarette Cigarette Packs Per Day: 1 Years Smoked: 8 e-Cigarette/Vaping Use: Never Used Second Hand Smoke Exposure: No Advance Directives Date on File: 01/17/23 service: No Current occupational status: retired Cognitive needs: No Hearing needs: No Vision needs: No Physical Exam Vital Signs: Last Vital Signs Pulse 75 07/19/24 12:59 BP 172/90 H 07/19/24 12:59 BMI result Body Mass Index 29.7 Results AMB Hemoglobin A1c AMB Hemoglobin A1c 7.0 % Last Edit by CLARISSA Castellano on 07/19/24 13:19 Results Reviewed Results Reviewed: Laboratory Last Values Glucose (Clinic) 127 mg/dL (60-115) H 07/19/24 13:08 Hgb A1c (Clinic) 7.0 % (4.0-6.0) H 07/19/24 13:13 Assessment & Plan Assessment & Plan (1) Type 2 diabetes mellitus: Code(s): E11.9 - Type 2 diabetes mellitus without complications Category: Medical Qualifiers: Diabetes mellitus complication detail: with other circulatory complications Diabetes mellitus complication status: with circulatory complication Diabetes mellitus mcc insulin use: with mcc use Qualified Code(s): E11.59 - Type 2 diabetes mellitus with other circulatory complications; Z79.4 - intermediate designer (current) use of insulin Plan: Patients A1C today is 7.0%. Will start CGM. He will remain on current tresiba dosing until CGM can be reviewed. refer clinical informatics educator. Refer vascular (2) Insulin use (long-term) in type 2 diabetes: Code(s): E11.9 - Type 2 diabetes mellitus without complications; Z79.4 - longterm (current) use of insulin Category: Medical Qualifiers: Chronic kidney disease stage: stage 5, not on chronic dialysis Diabetes mellitus complication detail: with chronic kidney disease Diabetes mellitus complication status: with kidney complications Qualified Code(s): E11.22 - Type 2 diabetes mellitus with diabetic chronic kidney disease; N18.5 - Chronic kidney disease, stage 5; Z79.4 - longterm (current) use of insulin Plan: continue current dosing (3) Mesenteric ischemia: Code(s): K55.9 - Vascular disorder of intestine, unspecified Category: Medical Plan: Suspect given fairly bland GI work up and known SMA stenosis that his pain may in fact be 2/2 the the stenosis. He has a current diabetic foot wound and is following with podiatry. Referral to vascular placed. (4) Peripheral arterial disease: Code(s): I73.9 - Peripheral vascular disease, unspecified Category: Medical Plan: see above (5) Diabetic foot infection: Code(s): E11.628 - Type 2 diabetes mellitus with other skin complications; L08.9 - Local infection of the skin and subcutaneous tissue, unspecified Category: Medical Plan: see above Orders: Orders AMB Hemoglobin A1c Today E11.9 - Type 2 diabetes mellitus without complications Referrals Vascular Surgery Referral E11.9 - Type 2 diabetes mellitus without complications, G89.29 - Other chronic pain, I73.9 - Peripheral vascular disease, unspecified, K55.9 - Vascular disorder of intestine, unspecified, R10.9 - Unspecified abdominal pain, Z79.4 - longterm (current) use of insulin Diabetes Education Referral E11.9 - Type 2 diabetes mellitus without complications, Z79.4 - longterm (current) use of insulin Medications: New FreeStyle Reid 3 Advance (blood-glucose meter,continuous) As directed 1 ea 0RF NS E11.9 - Type 2 diabetes mellitus without complications, Z79.4 - intermediate designer (current) use of insulin FreeStyle Reid 3 Sensor (blood-glucose sensor) every 14 days 6 ea 3RF NS E11.9 - Type 2 diabetes mellitus without complications, Z79.4 - longterm (current) use of insulin Coding Level of Care Code Est Pt Level 5 (71718) Diagnoses Type 2 diabetes mellitus with other circulatory complication, with long-term current use of insulin E11.59; Z79.4 Diabetes mellitus complication detail: with other circulatory complications Diabetes mellitus complication status: with circulatory complication 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
[2024-07-19 12:59] VITALS: BP 172/90; PULSE 75; BMI 29.7
[2024-07-19 13:13] LABS: Glucose, Whole Blood 127 mg/dL (60-115)
== END 2024-07-19 13:58 | disposition home or self-care (01) ==
LOC: HO.ENCR 12:53
PROVIDERS: PCP Internal Medicine; Visit Provider Internal Medicine
DX: E11.59 Type 2 diabetes mellitus with other circulatory complications (principal); Z79.4 Long term (current) use of insulin; E11.22 Type 2 diabetes mellitus with diabetic chronic kidney disease; N18.5 Chronic kidney disease, stage 5; K55.9 Vascular disorder of intestine, unspecified; I73.9 Peripheral vascular disease, unspecified; E11.628 Type 2 diabetes mellitus with other skin complications; L08.9 Local infection of the skin and subcutaneous tissue, unspecified

== ENCOUNTER → 2024-07-19 12:52 | Outpatient (BNVA) | payer OTHER, SELFPAY | PROVIDERS: PCP Internal Medicine; Visit Provider Internal Medicine | DX: E11.59 Type 2 diabetes mellitus with other circulatory complications (principal); E11.22 Type 2 diabetes mellitus with diabetic chronic kidney disease; N18.5 Chronic kidney disease, stage 5; K55.9 Vascular disorder of intestine, unspecified; I73.9 Peripheral vascular disease, unspecified; E11.628 Type 2 diabetes mellitus with other skin complications; L08.9 Local infection of the skin and subcutaneous tissue, unspecified; Z79.4 Long term (current) use of insulin | CPT/HCPCS: 82947; 83036 ==

== ENCOUNTER 2024-07-31 10:19 | Outpatient (AMB) | payer OTHER, SELFPAY ==
--- NOTE | 2024-07-31 10:01 | A.OFFVIS_ITS ---
Vital Signs 07/31/24 10:26 Height 5 ft 7 in Weight 196 lb 8 oz BMI 30.8 BP 188/100 H Blood Pressure Location Rt brachial Position Sitting Pulse 64 Pulse Source Pulse Oximeter Pulse Oximetry (%) 96 Oxygen Delivery Method Room Air Intake Visit Reasons: Shortness of breath Allergies Iodinated Contrast Media [IV Contrast Dye] Allergy (Severe, Verified 07/31/24 10:29) Acute Kidney Failure liraglutide [From Victoza] Allergy (Intermediate, Verified 07/31/24 10:29) Hives meperidine [From Demerol] Allergy (Intermediate, Verified 07/31/24 10:29) Hives Seasonal Allergies Adverse Reaction (Intermediate, Verified 07/31/24 10:29) Itchy Eyes HPI HPI Shortness of breath: Details: Mark is a pleasant 74 year old male, former smoker with less than 10 pack year history, with significant underlying cardiac history with multivessel bypass, CAD s/p stent, NSTEMI, HF EF 45-50%, asthma, environmental allergies, GERD and KRYSTLE on CPAP. He was started on pulmicort for dyspnea with minimal exertion and intermittent dry cough however has discontinued using. His main complaint is sinus related issues secondary to allergies. He is not using a daily antihistamine or nasal spray. He notes dyspnea occurs after eating and attributes it to abdominal cramping which he is under evaluation through GI. He also notes suboptimal control of reflux symptoms currently on Omeprazole and has upcoming appt with GI to review. Since the last visit he underwent cataract surgery on the left and has an appt tomorrow to discuss surgery on the left. [facility] Medical History Uses roller walker Peripheral neuropathy History of renal dialysis Sinus infection A-V fistula (~2021) Glaucoma Enlarged prostate Chronic cough Arthritis Anxiety Anemia CHF (congestive heart failure) KRYSTLE on CPAP Type 2 diabetes mellitus Ischemic cardiomyopathy On anticoagulant therapy Elevated cholesterol CAD (coronary artery disease) HTN (hypertension) Spinal stenosis NSTEMI (non-ST elevated myocardial infarction) Bladder outlet obstruction Chronic renal insufficiency Surgical History Hx of coronary artery bypass graft (~2018) Hx of cardiac catheterization Hx of colonoscopy History of esophagogastroduodenoscopy (EGD) Hx of cystoscopy History of tonsillectomy Family History Mother Colon cancer Social History Household Members: Spouse Housing: House Are you a primary wild animal caretaker to a significant other at home: No Do you presently have visiting nurse or other home services: No Alcohol intake: never Patient Tobacco Use Status: Former Tobacco user Tobacco use type: Cigarette Cigarette Packs Per Day: 1 Years Smoked: 8 e-Cigarette/Vaping Use: Never Used Second Hand Smoke Exposure: No Advance Directives Date on File: 01/17/23 service: No Current occupational status: retired Cognitive needs: No Hearing needs: No Vision needs: No Review of Systems Const Denies chills, Denies excessive sweating, Denies fever(s), Denies headache(s) and Denies night sweats Eyes Denies dry eyes, Denies irritation and Denies itchy eyes ENT Reports Normal hearing present, Denies headache(s), Reports nasal congestion, Denies nasal discharge, Reports post nasal drip and Denies sore throat Card Denies chest pain, Denies chest pain at rest, Denies chest pain with activity, Denies claudication, Denies leg edema, Reports dyspnea, Denies dyspnea on exertion, Denies orthopnea and Denies paroxysmal nocturnal dyspnea Resp Denies chest congestion, Reports cough, Denies excessive phlegm production, Denies pain on inspiration, Denies pain with cough, Reports dyspnea, Denies dyspnea on exertion, Denies stridor and Denies wheezing Musc Denies myalgias Neuro Reports Normal hearing present and Denies headache(s) Endo Denies excessive sweating Jacob/Lymph Denies lymphadenopathy Aller/Immun Denies itchy eyes, Denies seasonal rhinorrhea and Denies wheezing Physical Exam Vital Signs: Last Vital Signs Pulse 64 07/31/24 10:26 BP 188/100 H 07/31/24 10:26 Pulse Ox 96 07/31/24 10:26 Oxygen Delivery Method Room Air 07/31/24 10:26 BMI result Body Mass Index 30.8 Const General: cooperative, healthy appearing, comfortable, no acute distress, well developed and alert Nutritional Appearance: obese Orientation/consciousness: patient oriented x3 Limitations: ambulation with walker HEENT Head: Yes normal to inspection, Yes normocephalic and Yes atraumatic Ears: hearing grossly normal bilaterally and external ears normal Eyes General: appearance normal, both eyes and all related structures Eyelids: Yes eyelids normal Sclerae: sclerae normal EOM: EOMs intact bilaterally Neck Neck: Yes normal visual inspection and Yes no lymphadenopathy Lymphatic: no lymphadenopathy noted Chest Chest palpation & inspection: normal inspection of the chest Resp Effort & Inspection: normal respiratory effort, able to speak in complete sentences, no audible wheezes, no stridor, not tachypneic, no tripod positioning and no use of accessory muscles Auscultation: clear to auscultation bilaterally Cardio Jugular venous distension: no JVD Rate: regular rate Rhythm: regular rhythm Skin Other: warm, dry General skin exam: no rashes or lesions noted Neuro General: patient oriented x3 Cranial nerves: Yes Normal hearing present Cognition (Neuro): normal cognition Extrem Other: 2+ pitting edema BLE General: Yes normal to inspection and Yes capillary refill normal Psych Appearance: grossly normal and well kempt Speech and movement: Normal speech and movement present and Clear speech present Affect: normal affect Attitude: cooperative Thought process: Normal thought process present Thought content: Normal thought content present Insight: Good insight present (Psych) Judgement: Good judgement present (Psych) Assessment & Plan Assessment & Plan (1) Dyspnea: Code(s): R06.00 - Dyspnea, unspecified Category: Medical (2) Asthma: Code(s): J45.909 - Unspecified asthma, uncomplicated Category: Medical (3) Environmental allergies: Code(s): Z91.09 - Other allergy status, other than to drugs and biological substances Category: Medical (4) KRYSTLE on CPAP: Code(s): G47.33 - Obstructive sleep apnea (adult) (pediatric) Category: Medical (5) Ischemic cardiomyopathy: Comment: follows w/[facility] Code(s): I25.5 - Ischemic cardiomyopathy Category: Medical (6) Pulmonary nodule: Code(s): R91.1 - Solitary pulmonary nodule Category: Medical Plan At this time Peter's sinus symptoms and post nasal drip seem to be contributing to cough. Advised to trial antihistamine vs nasal spray however will review with opthamologist prior to use given his recent and upcoming surgery. He will discuss reflux symptoms and abdominal cramping with GI. 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 Prior Chest CT revealed unchanged 3 mm nodule of RML, order placed for repeat chest CT in one year to assess for stability of nodule, 10/2024. At the last visit, patient was started on pulmicort with good control of symptoms, advised to continue. All questions were answered and patient is in agreement of plan. Will follow up in 3-6 months or sooner if needed. Coding Level of Care Code Est Pt Level 4 (53779) Diagnoses Dyspnea R06.00 Asthma J45.909 Environmental allergies Z91.09 KRYSTLE on CPAP G47.33 Ischemic cardiomyopathy I25.5 Pulmonary nodule R91.1
[2024-07-31 10:26] VITALS: BP 188/100; PULSE 64; O2SAT 96; BMI 30.8
== END 2024-07-31 11:02 | disposition home or self-care (01) ==
PROVIDERS: PCP Internal Medicine; Visit Provider Nurse Practitioner Family
DX: R06.00 Dyspnea, unspecified (principal); J45.909 Unspecified asthma, uncomplicated; Z91.09 Other allergy status, other than to drugs and biological substances; G47.33 Obstructive sleep apnea (adult) (pediatric); I25.5 Ischemic cardiomyopathy; R91.1 Solitary pulmonary nodule
CPT/HCPCS: 99214

== ENCOUNTER → 2024-07-31 10:19 | Outpatient (BNVA) | payer OTHER, SELFPAY | PROVIDERS: PCP Internal Medicine; Visit Provider Nurse Practitioner Family ==